=== PATIENT | male | born 1935 | race Caucasian/White ===

== ENCOUNTER 2019-08-23 20:05 | Inpatient (IN) | payer MEDICARE, OTHER ==
[~2019-08-23] VITALS: Ht 175.3 cm; Wt 115.1 kg
[~2019-08-23 20:05] MED LIST: CLIN300C8 PO
[2019-08-23] MEDS ORDERED: IV NORMAL SALINE 500ML BAG 500 ML IV ONE (20:30)
[2019-08-23] MEDS ORDERED: levOFLOXacin PER PHARMACY. MC PRN (20:30)
[2019-08-23] MEDS ORDERED: VANCOMYCIN PER PHARMACY MC PRN (20:30)
--- NOTE | 2019-08-23 20:37 | PHYS DOC ---
Past Medical History Past Medical History: CAD, CHF, Diabetes-Type II Additional Past Medical Histor: venous insufficiency Past Surgical History: Other Additional Past Surgical Histo: VEIN STRIPPING Smoking Status: Former Smoker Alcohol Use: None General Adult EDM: Chief Complaint: WEAKNESS/GENERALIZED HPI: HPI: Patient is a 84 year old biba generalized weakness couldn't stand for the last two weeks slowly progressive. using walker entirely now. not able to support his own weight no fever. no chest pain no cough or shortness of breath. getting physical therapy. tested negative for covid recently, meds: see full list, insulin, metoprolol xarelto. [facility] PMH: diabetes overweight chf chronic lymphedema for a year or two. has unaboot has been noncompliant. recent covid test yesterday, done yesterday results not back yet. Review of Systems: Review of Systems: Constitutional: Musculoskeletal: Integument: Denies rash. [] Neurologic: Denies headache, focal weakness or sensory changes. [] Endocrine: Denies polyuria or polydipsia. [] Lymphatic: Denies swollen glands. [] Psychiatric: Denies depression or anxiety. [] Heart Score: Risk Factors: Risk Factors: DM, Current or recent (<one month) smoker, HTN, HLP, family history of CAD, obesity. Risk Scores: Score 0 - 3: 2.5% MACE over next 6 weeks - Discharge Home Score 4 - 6: 20.3% MACE over next 6 weeks - Admit for Clinical Observation Score 7 - 10: 72.7% MACE over next 6 weeks - Early Invasive Strategies Current Medications: Current Medications Medications (Trade) Dose Ordered Sig/[facility] Start Time Stop Time Status Last Admin Dose Admin Levofloxacin/ Dextrose (Levaquin Per Pharmacy) 1 each PRN DAILY PRN 08/23/19 20:30 UNV Sodium Chloride 500 ml @ 500 mls/hr 1X ONCE 08/23/19 20:30 08/23/19 21:29 UNV Vancomycin HCl (Vanco Per Pharmacy) 1 each PRN DAILY PRN 08/23/19 20:30 UNV Allergies: Allergies: Allergies Coded Allergies Type Severity Reaction Last Updated Verified amoxicillin Allergy Unknown 03/11/19 Yes clavulanic acid Allergy Unknown 03/11/19 Yes erythromycin base Allergy Unknown 03/11/19 Yes fosinopril Allergy Unknown 03/11/19 Yes metformin Allergy Unknown 03/11/19 Yes niacin Allergy Unknown 03/11/19 Yes pioglitazone Allergy Unknown 03/11/19 Yes simvastatin Allergy Unknown 03/11/19 Yes Physical Exam: PE: Constitutional: Well developed, well nourished mild distress. Obese HENT: Normocephalic, atraumatic, bilateral external ears normal, oropharynx moist, no oral exudates, nose normal. [] Eyes: PERRLA, EOMI, conjunctiva normal, no discharge. Neck: Normal range of motion, no tenderness, supple, no stridor. Cardiovascular:Heart rate regular rhythm, no murmur. Lungs & Thorax: Bilateral breath sounds clear to auscultation. Abdomen: Bowel sounds normal, soft obese, but no tenderness, no masses, no pulsatile masses. [] Skin: Warm, dry, no erythema, no rash. [] Back: No tenderness, no CVA tenderness. [] Extremities: significant edema 4 plus severe lymphedema , malodorous erythema multiple scabs some of which necrotic appearing. Neurologic: Alert and oriented X 3, normal motor function, normal sensory function, no focal deficits noted. [] except not antigravity in b/l lower extremities. Psychologic: Affect normal, judgement normal, mood normal. [] Current Patient Data: Vital Signs: BP 118/56 a afebrile not tachycardic not hypoxic EKG: EKG: [] EKG shows normal sinus rhythm nonspecific changes no STEMI no ST depressions just some flattening Radiology/Procedures: Radiology/Procedures: [] Comparisons: None FINDINGS: No focal parenchymal lesion or hemorrhage is identified. There is no midline shift or sulcal effacement. Patchy hypodensity in the periventricular white matter. No acute vascular territory infarction is identified. Haley-white distinction is preserved. The ventricular system is within normal limits without compression hydrocephalus. The basal cisterns are well maintained. The visualized portions of the paranasal sinuses and mastoid air cells are well-pneumatized. No acute fractures. IMPRESSION: No acute intracranial abnormality. Exposure: One or more of the following in the visualized dose reduction techniques were utilized for this examination: 1. Automated exposure control 2. Adjustment of the MA and/or KV according to patient size Use of iterative of reconstructive technique Electronically signed by: Radha Marino MD (08/23/2019 8:59 PM) [id number] Impression: Comparisons: 03/16/2019 FINDINGS: Heart is mildly enlarged. Pulmonary vessels are within normal limits. The lung and pleural spaces are clear. IMPRESSION: No acute pulmonary process. Electronically signed by: Radha Marino MD (08/23/2019 9:01 PM) [id number] DICTATED and SIGNED BY: RADHA MARINO MD DATE: 08/23/192100 Course & Med Decision Making: Course & Med Decision Making Pertinent Labs and Imaging studies reviewed. (See chart for details) []84 yo m hx of diabetes chf, unable to stand or support weight chronic lymphedema bp normal has cellulitis b/l noted on exam, could be acute on chronic. broad ddx dehydration, less likely ich. infection, occult ischemia. 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 no heroic life saving measures. Thinks he is on XARELTO due to prior hx of blood clots. Noted troponin elevated this is broad differential could be related to strain in the setting of infection could be related to the renal insufficiency could be primary cardiac however there is no chest pain so this seems less likely. Could be related to blood clot but patient is hemodynamically stable so just given a dose of Xarelto for now and lower extremity ultrasounds were ordered skip the CT angios for this time due to the elevated creatinine. DW DR HERRON RECOMMENDS VANCO AND CEFEPIME. DO CARDS, NEPHRO WOUND CONSULT GET SERIAL TROPS GET EXTREMITY ULTRASOUND. DW DAUGHTER AMOXICILLIN ALLERGY IS DIARRHEA AND VOMITING. CEFEPIME ADDED. Ryan Disclaimer: Ryan Disclaimer: This electronic medical record was generated, in whole or in part, using a voice recognition dictation system. Departure Departure Impression: Primary Impression: Cellulitis Additional Impression: Troponin level elevated Disposition: ADMITTED INPATIENT Admitting Physician: HIMS Condition: STABLE Referrals: UNKNOWN PCP NAME (PCP) Justicifation of Admission Dx: Justifications for Admission: Justification of Admission Dx: Yes MAUREEN LINDO MD Aug 23, 2019 20:37
[2019-08-23 20:47] LABS: BASO % 1 % (0-3); EOS % 0 % (0-3); HEMOGLOBIN 8.1 g/dL (13.0-17.5); LYMPH # 0.7 x10^3/uL (1.0-4.8); LYMPH % 11 % (24-48); MEAN CORPUSCULAR HEMOGLOBIN 29 pg (25-35); MEAN CORPUSCULAR HGB CONC 34 g/dL (31-37); MEAN CORPUSCULAR VOLUME 88 fL (79-100); MONO # 0.8 x10^3/uL (0.0-1.1); MONO % 12 % (0-9); NEUT # 5.3 x10^3/uL (1.8-7.7); NEUT % 77 % (31-73); PLATELET COUNT 248 x10^3/uL (140-400); RED BLOOD COUNT 2.75 x10^6/uL (4.30-5.70); RED CELL DISTRIBUTION WIDTH 15.8 % (11.5-14.5); WHITE BLOOD COUNT 6.9 x10^3/uL (4.0-11.0)
[2019-08-23 20:57] LABS: PROTHROMBIN TIME PATIENT 20.7 SEC (11.7-14.0)
--- NOTE | 2019-08-23 21:02 | RAD ---
Exam: CT head INDICATION: Altered mental status TECHNIQUE: Sequential axial images through the head were obtained without the administration of IV contrast. Comparisons: None FINDINGS: No focal parenchymal lesion or hemorrhage is identified. There is no midline shift or sulcal effacement. Patchy hypodensity in the periventricular white matter. No acute vascular territory infarction is identified. Haley-white distinction is preserved. The ventricular system is within normal limits without compression hydrocephalus. The basal cisterns are well maintained. The visualized portions of the paranasal sinuses and mastoid air cells are well-pneumatized. No acute fractures. IMPRESSION: No acute intracranial abnormality. Exposure: One or more of the following in the visualized dose reduction techniques were utilized for this examination: 1. Automated exposure control 2. Adjustment of the MA and/or KV according to patient size Use of iterative of reconstructive technique Electronically signed by: Magi Alcocer MD (08/23/2019 8:59 PM) [id number]
--- NOTE | 2019-08-23 21:04 | RAD ---
Exam: Chest one view INDICATION: Fever TECHNIQUE: Frontal view of the chest Comparisons: 03/16/2019 FINDINGS: Heart is mildly enlarged. Pulmonary vessels are within normal limits. The lung and pleural spaces are clear. IMPRESSION: No acute pulmonary process. Electronically signed by: Magi Alcocer MD (08/23/2019 9:01 PM) [id number]
[2019-08-23 21:08] LABS: CALCIUM 8.6 mg/dL (8.5-10.1); CREATININE 1.8 mg/dL (0.7-1.3); GFR 36.1; POTASSIUM 4.5 mmol/L (3.5-5.1)
[2019-08-23 21:22] LABS: ALBUMIN 2.4 g/dL (3.4-5.0); ALBUMIN/GLOBULIN RATIO 0.5 (1.0-1.7); TOTAL BILIRUBIN 0.4 mg/dL (0.2-1.0); TOTAL PROTEIN 7.3 g/dL (6.4-8.2)
[2019-08-23] MEDS ORDERED: VANCOMYCIN 2 GM in IV NORMAL SALINE 500ML BAG 500 ML IV ONE (22:00)
[2019-08-23] MEDS ORDERED: RIVAROXABAN 15 MG TABLET. PO ONE (22:00)
[2019-08-23] MEDS ORDERED: CEFEPIME HCL IV Push 1 GM VIAL. IVP ONE (22:30)
[2019-08-23 23:02] LABS: BILIRUBIN,URINE NEGATIVE (NEG); CLARITY,URINE CLEAR; COLOR,URINE YELLOW; NITRITE,URINE NEGATIVE (NEG); PH,URINE 5.5 (<5.0-8.0); PROTEIN,URINE NEGATIVE (NEG-TRACE); UROBILINOGEN,URINE 0.2 mg/dL (0.2 mg/dL)
[2019-08-23 23:16] LABS: BACTERIA,URINE FEW /HPF (0-FEW); GRANULAR CASTS,URINE FEW /HPF; HYALINE CASTS, URINE FEW /HPF; RBC,URINE OCC /HPF (0-2); SQUAMOUS EPITHELIAL CELL,UR FEW /LPF
--- NOTE | 2019-08-24 02:07 | NUR ---
Pharmacy Vancomycin Dosing Note S:Consulted to monitor and dose vancomycin started 08/23/19. O:DEYA PAGE is a 84 year old M with Cellulitis . Height: 6 feet, 2 inches Weight: 100.0 kg [place] Body Weight: 82.20 Adjusted Body Weight: 89.32 Dosing Weight: Actual Other Antibiotics: LEVOFLOXACIN 250 MG DAILY LABS: Last BUN: 48 Last Creatinine: 1.8 Creatinine Clearance: 38.6 mL/min Last WBC: 6.9 Last Procalcitonin: Tmax (past 24 hours): Microbiology: I/O: Drug Levels: Last level: on at Last dose given 08/23/19 at 2200 Vancomycin Dosing: Loading Dose: 2000 mg x1 Dosing Weight: Actual Target Trough: 10-20 A: Based on: WT AND CRCL P: 1. Begin Vancomycin 1500 mg IV q24h 2. Follow up Trough level on 08/25/19 at 2130 3. Pharmacy will continue to monitor, follow and adjust therapy as needed. TENNILLE BEVERLY RPH, 08/24/19206 Signed: 08/24/19 at 020 by TENNILLE BEVERLY RPH PHA
[2019-08-24 03:00] VITALS: BP 106/65
[2019-08-24] MEDS ORDERED: BISA-42 PO (04:37)
[2019-08-24] MEDS ORDERED: FLUC200T4 PO (04:54)
[2019-08-24] MEDS ORDERED: INSU100V8 SQ ×2 (04:54)
[2019-08-24] MEDS ORDERED: CETI10TA16 PO (04:54)
[2019-08-24] MEDS ORDERED: OMEG1CAP27 PO (04:54)
[2019-08-24] MEDS ORDERED: FURO20TA3 PO (04:54)
[2019-08-24] MEDS ORDERED: INSU100V41 SQ (04:54)
[2019-08-24] MEDS ORDERED: GABA600T7 PO (04:54)
[2019-08-24] MEDS ORDERED: MAGN400O7 PO (05:04)
[2019-08-24] MEDS ORDERED: METO50TA6 PO (05:04)
[2019-08-24] MEDS ORDERED: SPIR25TA5 PO (05:04)
[2019-08-24] MEDS ORDERED: LOSA100T14 PO (05:04)
[2019-08-24] MEDS ORDERED: MICO113C TP (05:04)
[2019-08-24] MEDS ORDERED: MENT1ADH29 TP (05:04)
[2019-08-24] MEDS ORDERED: SILV20CR14 TP (05:04)
[2019-08-24] MEDS ORDERED: RIVA20TA2 PO (05:04)
[2019-08-24] MEDS ORDERED: NYST15CR TP (05:04)
[2019-08-24] MEDS ORDERED: POLY17PO29 PO (05:04)
[2019-08-24 07:00] VITALS: BP 150/78
[2019-08-24 08:53] LABS: CALCIUM 8.3 mg/dL (8.5-10.1); CREATININE 1.4 mg/dL (0.7-1.3); GFR 48.3; POTASSIUM 4.2 mmol/L (3.5-5.1)
[2019-08-24] MEDS: HYDROcodone/APAP 5/325MG 1 TAB TABLET PO PRN ×2 (10:11→20:48)
--- NOTE | 2019-08-24 10:12 | RAD ---
Examination: Bilateral Lower Extremity Venous Doppler Ultrasound History: Bilateral leg edema Comparison: None Procedure: Haley scale, color flow 2D and spectal waveform analysis images are obtained with and without compression in the area of the common femoral vein, superficial femoral vein - femoral vein junction, main femoral vein (superficial femoral vein) and popliteal vein. Veins of the proximal calf are also imaged. Findings: There is normal duplex flow, color flow and compressibility of all visualized vein segments. No evidence of deep venous thrombus is present. Impression: No evidence of DVT in the bilateral lower extremity venous system. Electronically signed by: Sidney Robins MD (08/24/2019 10:09 AM) [id number]
[2019-08-24 10:43] VITALS: BP 138/51
--- NOTE | 2019-08-24 11:30 | PDOC ---
Infectious Disease Note Vital Sign Vital Signs Vital Signs Date Time Temp Pulse Resp B/P (MAP) Pulse Ox O2 Delivery O2 Flow Rate FiO2 08/24/19 10:43 98.6 81 18 138/51 (80) 97 Room Air 98.6 Labs Lab Laboratory Tests Test 08/23/19 20:30 08/23/19 22:30 08/24/19 05:00 08/24/19 05:30 White Blood Count 6.9 x10^3/uL (4.0-11.0) Red Blood Count 2.75 x10^6/uL (4.30-5.70) Hemoglobin 8.1 g/dL (13.0-17.5) Hematocrit 24.0 % (39.0-53.0) Mean Corpuscular Volume 88 fL (79-100) Mean Corpuscular Hemoglobin 29 pg (25-35) Mean Corpuscular Hemoglobin Concent 34 g/dL (31-37) Red Cell Distribution Width 15.8 % (11.5-14.5) Platelet Count 248 x10^3/uL (140-400) Neutrophils (%) (Auto) 77 % (31-73) Lymphocytes (%) (Auto) 11 % (24-48) Monocytes (%) (Auto) 12 % (0-9) Eosinophils (%) (Auto) 0 % (0-3) Basophils (%) (Auto) 1 % (0-3) Neutrophils # (Auto) 5.3 x10^3/uL (1.8-7.7) Lymphocytes # (Auto) 0.7 x10^3/uL (1.0-4.8) Monocytes # (Auto) 0.8 x10^3/uL (0.0-1.1) Eosinophils # (Auto) 0.0 x10^3/uL (0.0-0.7) Basophils # (Auto) 0.0 x10^3/uL (0.0-0.2) Prothrombin Time 20.7 SEC (11.7-14.0) Prothromb Time International Ratio 1.8 (0.8-1.1) Sodium Level 140 mmol/L (136-145) 141 mmol/L (136-145) Potassium Level 4.5 mmol/L (3.5-5.1) 4.2 mmol/L (3.5-5.1) Chloride Level 108 mmol/L (98-107) 108 mmol/L (98-107) Carbon Dioxide Level 24 mmol/L (21-32) 20 mmol/L (21-32) Anion Gap 8 (6-14) 13 (6-14) Blood Urea Nitrogen 48 mg/dL (8-26) 40 mg/dL (8-26) Creatinine 1.8 mg/dL (0.7-1.3) 1.4 mg/dL (0.7-1.3) Estimated GFR (Cockcroft-Gault) 36.1 48.3 BUN/Creatinine Ratio 27 (6-20) Glucose Level 275 mg/dL (70-99) 207 mg/dL (70-99) Lactic Acid Level 1.6 mmol/L (0.4-2.0) Calcium Level 8.6 mg/dL (8.5-10.1) 8.3 mg/dL (8.5-10.1) Total Bilirubin 0.4 mg/dL (0.2-1.0) Aspartate Amino Transf (AST/SGOT) 25 U/L (15-37) Alanine Aminotransferase (ALT/SGPT) 17 U/L (16-63) Alkaline Phosphatase 54 U/L (46-116) Troponin I Quantitative 0.260 ng/mL (0.000-0.055) 0.148 ng/mL (0.000-0.055) 0.145 ng/mL (0.000-0.055) NK-Btn-H-Type Natriuretic Peptide 4809 pg/mL (0-449) Total Protein 7.3 g/dL (6.4-8.2) Albumin 2.4 g/dL (3.4-5.0) Albumin/Globulin Ratio 0.5 (1.0-1.7) Procalcitonin 0.18 ng/mL (0.00-0.10) Urine Collection Type Unknown Urine Color Yellow Urine Clarity Clear Urine pH 5.5 (<5.0-8.0) Urine Specific [place] 1.020 (1.000-1.030) Urine Protein Negative mg/dL (NEG-TRACE) Urine Glucose (UA) Negative mg/dL (NEG) Urine Ketones (Stick) Negative mg/dL (NEG) Urine Blood Negative (NEG) Urine Nitrite Negative (NEG) Urine Bilirubin Negative (NEG) Urine Urobilinogen Dipstick 0.2 mg/dL (0.2 mg/dL) Urine Leukocyte Esterase Negative (NEG) Urine RBC Occ /HPF (0-2) Urine WBC 1-4 /HPF (0-4) Urine Squamous Epithelial Cells Few /LPF Urine Bacteria Few /HPF (0-FEW) Urine Hyaline Casts Few /HPF Urine Granular Casts Few /HPF Urine Mucus Marked /LPF Test 08/24/19 07:49 08/24/19 11:05 Glucose (Fingerstick) 212 mg/dL (70-99) 293 mg/dL (70-99) Objective Assessment Mild cellulitis lower extremities, bilaterally 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 The chart was reviewed. The case was discussed. Agree with the plan of care. CHIRAG TOMLIN APRN Aug 24, 2019 11:30 RAIMUNDO WISDOM MD Aug 24, 2019 11:32
--- NOTE | 2019-08-24 11:51 | CONS ---
DATE OF CONSULTATION: 08/24/2019 INFECTIOUS DISEASE REQUESTING PHYSICIAN: Dr. Ortega. REASON FOR CONSULTATION: Multiple wounds and COVID pending. HISTORY OF PRESENT ILLNESS: This patient is an 84-year-old male who was brought to the ER from a long term with complaints of generalized weakness. He was found to have several ulcerations to lower extremities with mild redness. Venous Doppler ultrasound was negative for DVT. He has been admitted and started on vancomycin and Levaquin. The patient has a history of chronic lymphedema of lower extremities bilaterally. [facility] He denies recent antibiotic use. He denies fevers, chills, sweats, or body aches. He has a COVID test pending. He denies shortness of breath, cough, or chest discomfort. Denies nausea, vomiting, or diarrhea. PAST MEDICAL HISTORY: Atrial fibrillation, congestive heart failure, coronary artery disease, hypertension, diabetes type 2, chronic lymphedema, venous insufficiency. PAST SURGICAL HISTORY: Vein stripping. FAMILY HISTORY: Noncontributory. SOCIAL HISTORY: prison resident. Former smoker. ALLERGIES: MULTIPLE INCLUDING AUGMENTIN AND ERYTHROMYCIN. MEDICATIONS: Reviewed on the MAR and includes vancomycin and levofloxacin. REVIEW OF SYSTEMS: Per HPI, otherwise all other review of systems are negative. PHYSICAL EXAMINATION: VITAL SIGNS: Temperature 98.6, blood pressure 138/51, heart rate 81, respiratory rate 18, pulse oximetry 97% on room air. BMI 41. GENERAL: The patient is propped up in bed, alert, in no apparent distress. HEENT: Normal conjunctivae. Oropharynx pink and moist, no thrush. NECK: Supple. LUNGS: Clear to auscultation. No accessory muscle use. HEART: S1, S2. ABDOMEN: Obese, soft, nontender with bowel sounds present. EXTREMITIES: Chronic venous dermatitis with mild erythema and several ulcerations and weeping. No cyanosis. SKIN: Warm to touch. No signs of rash. NEUROLOGIC: Alert and answering questions appropriately, though a poor historian. LABORATORY DATA: On admission, WBC 6.9, hemoglobin 8.1, platelets 248,000. Sodium 141, potassium 4.2, creatinine 1.4 from 1.8, BUN 40, glucose 207. Lactic acid 1.6, total bilirubin 0.4, AST 25, ALT 17. Troponin 0.260. BNP 4809. Procalcitonin 0.18. Albumin 2.4. Urinalysis unremarkable for infection. Blood cultures and aerobic culture with Gram stain pending. COVID pending. Venous Doppler ultrasound negative for DVT. Chest x-ray shows no acute pulmonary process. Head CT with no acute intracranial abnormality. IMPRESSION: 1. Mild cellulitis of lower extremities bilaterally. 2. 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 3. AUGMENTIN AND ERYTHROMYCIN ALLERGY. 4. Acute kidney injury. 5. Atrial fibrillation. 6. Generalized weakness. 7. Obesity. PLAN: 1. Discontinue the vancomycin and levofloxacin. 2. Start Rocephin and monitor. 3. Local wound care. 4. Maintain aspiration precautions. 5. Droplet isolation until COVID resulted. 6. Discussed with nursing. Thank you, Dr. Ortega, for asking us to participate in this patient's care. Should you have further questions or concerns, please call. The patient was seen and examined and plan of care implemented by Dr. Olayinka Wisdom. OLAYINKA WISDOM MD DR: GILDARDO/iwona JOB#: [id number] / [id number]
[2019-08-24] MEDS ORDERED: MAGNESIUM HYDROXIDE 2,400 MG/30 ML ORAL.SUSP. PO PRN ×2 (12:15→12:18)
[2019-08-24] MEDS ORDERED: POLYETHYLENE GLYCOL 3350 17 GM PACKET. PO PRN (12:15)
[2019-08-24] MEDS ORDERED: BISACODYL 5 MG TABLET.DR. PO PRN (12:15)
[2019-08-24] MEDS ORDERED: DEXTROSE 50% 25 GM / 50ML DISP.SYRIN. IV PRN (12:30)
--- NOTE | 2019-08-24 12:36 | PDOC1 ---
History and Physical Date of Admission: Date of Admission DATE: 08/24/19 TIME: 12:14 Chief Complaint: Chief Complain: Weakness and bilateral cellulitis History of Present Illness: HPI: 84-year-old male, with past medical history of CAD, CHF, diabetes type 2, A. fib, who presents to the ED with generalized weakness for the last 2 weeks and is progressively gotten worse. Patient states that his weakness is mainly is is in his lower extremities and he does receive wound care for both of his legs due to venous insufficiency. Patient does suffer multiple wounds and possibly fungal infection that is also being treated by wound care. In the last couple days patient was not able to support his own weight and decided that he needed to be brought in. Patient resides at [facility] and feels that the care at [facility] is an adequate and would like to switch to a different location. Ultimately he would like to go home with home health and also receive physical therapy. Patient was tested negative for COVID recently patient does normally go to [place] for [place]. Denies fevers, shortness of breath, chest pain, abdominal pain, diarrhea, bloody stools, hematuria. Past Medical/Surgical History: PMH/PSH: Past Medical History: CAD, CHF, Diabetes-Type II, Afib Additional Past Medical Histor: venous insufficiency Allergies: Allergies: Coded Allergies: fosinopril (Verified Allergy, Severe, 08/23/19) amoxicillin (Verified Allergy, Intermediate, DIARRHEA AND VOMITING, 08/24/19) clavulanic acid (Verified Allergy, Intermediate, 08/23/19) erythromycin base (Verified Allergy, Intermediate, 08/23/19) metformin (Verified Allergy, Intermediate, 08/23/19) niacin (Verified Allergy, Intermediate, 08/23/19) pioglitazone (Verified Allergy, Intermediate, 08/23/19) simvastatin (Verified Allergy, Intermediate, 08/23/19) Family History: Family History: None reported Social History: Social History: Smoking Status: Former Smoker Alcohol Use: None No drug abuse Current Medications: Current Medications Current Medications Vancomycin HCl (Vanco Per Pharmacy) 1 each PRN DAILY PRN MC SEE COMMENTS Last administered on 08/24/19at 02:07; Start 08/23/19 at 20:30; Stop 08/24/19 at 11:21; Status DC Levofloxacin/ Dextrose (Levaquin Per Pharmacy) 1 each PRN DAILY PRN MC SEE COMMENTS; Start 08/23/19 at 20:30; Status Cancel Sodium Chloride 500 ml @ 500 mls/hr 1X ONCE IV Last administered on 08/23/19at 21:28; Start 08/23/19 at 20:30; Stop 08/23/19 at 21:29; Status DC Levofloxacin/ Dextrose 150 ml @ 100 mls/hr 1X ONCE IV Last administered on 08/23/19at 21:28; Start 08/23/19 at 21:00; Stop 08/23/19 at 22:29; Status DC Vancomycin HCl 2 gm/Sodium Chloride 500 ml @ 250 mls/hr 1X ONCE IV Last administered on 08/23/19at 22:00; Start 08/23/19 at 22:00; Stop 08/23/19 at 23:59; Status DC Rivaroxaban (Xarelto) 15 mg 1X ONCE PO Last administered on 08/23/19at 22:48; Start 08/23/19 at 22:00; Stop 08/23/19 at 22:01; Status DC Cefepime HCl (Maxipime) 1 gm 1X ONCE IVP Last administered on 08/23/19at 22:48; Start 08/23/19 at 22:30; Stop 08/23/19 at 22:31; Status DC Levofloxacin/ Dextrose 50 ml @ 50 mls/hr Q24H IV ; Start 08/24/19 at 21:00; Stop 08/24/19 at 11:32; Status DC Vancomycin HCl 1.5 gm/Sodium Chloride 500 ml @ 250 mls/hr Q24H IV ; Start 08/24/19 at 22:00; Stop 08/24/19 at 11:20; Status DC Vancomycin HCl (Vancomycin Trough Level) 1 each 1X ONCE MC ; Start 08/25/19 at 21:30; Stop 08/25/19 at 21:31; Status Cancel Acetaminophen/ Hydrocodone Bitart (Lortab 5/325) 1 tab PRN Q4HRS PRN PO MODERATE PAIN Last administered on 08/24/19at 10:11; Start 08/24/19 at 10:00 Ceftriaxone Sodium (Rocephin) 1 gm Q24H IVP ; Start 08/24/19 at 12:00 Bisacodyl (Dulcolax Tab) 5 mg TID PRN PO CONSTIPATION; Start 08/24/19 at 12:15; Status UNV Cetirizine HCl (ZyrTEC) 10 mg DAILY PO ; Start 08/25/19 at 09:00; Status UNV Furosemide (Lasix) 20 mg DAILY PO ; Start 08/25/19 at 09:00; Status UNV Magnesium Hydroxide (Milk Of Magnesia) 400 mg DAILY PRN PO CONSTIPATION; Start 08/24/19 at 12:15; Status UNV Metoprolol Tartrate (Lopressor) 50 mg BID PO ; Start 08/24/19 at 21:00; Status UNV Polyethylene Glycol (miraLAX PACKET) 17 gm DAILY PRN PO CONSTIPATION; Start 08/24/19 at 12:15; Status UNV Non-Formulary Medication (Gabapentin ) 600 mg BID PO ; Start 08/24/19 at 21:00; Status UNV Non-Formulary Medication (Rivaroxaban (Xarelto)) 1 tab DAILY PO ; Start 08/25/19 at 09:00; Status UNV Active Scripts Active Clindamycin Hcl 300 Mg Capsule 1 Cap PO TID Reported Spironolactone 25 Mg Tablet 1 Tab PO DAILY Silvadene (Silver Sulfadiazine) 20 Gm Cream..g. 1 Agata TP DAILY 7 Days apply to affected area(s) Xarelto (Rivaroxaban) 20 Mg Tablet 1 Tab PO DAILY 30 Days with food Nystatin 15 Gm Cream..g. 1 Agata TP BID Miralax (Polyethylene Glycol 3350) 17 Gm Powd.pack 1 Packet PO DAILY PRN 2 Days dissolve in water Milk Of Magnesia (Magnesium Hydroxide) 400 Mg/5 Ml Oral.susp 400 Mg PO DAILY PRN Anti-Fungal Cream (Miconazole Nitrate) 113 Gm Cream..g. 1 Agata TP BID 14 Days Metoprolol Tartrate 50 Mg Tablet 1 Tab PO BID [place] Ultra Strength (Menthol) 1 Each Adh..patch 1 Each TP Q8HRS Losartan Potassium 100 Mg Tablet 100 Mg PO DAILY Lantus (Insulin Glargine,Hum.rec.anlog) 100 Unit/1 Ml Vial 35 Unit SQ DAILY08 Lantus (Insulin Glargine,Hum.rec.anlog) 100 Unit/1 Ml Vial 37 Unit SQ QHS Insulin Aspart 100 Unit/1 Ml Vial 25 Unit SQ TIDAC Gabapentin 600 Mg Tablet 600 Mg PO BID Furosemide 20 Mg Tablet 1 Tab PO DAILY Fluconazole 200 Mg Tablet 1 Tab PO QTU Fish Oil 1,000 Mg Softgel ([place]-3 Fatty Acids/Fish Oil) 1 Each Capsule 1 Cap PO BID 30 Days WITH MEALS Cetirizine Hcl 10 Mg Tablet 1 Tab PO DAILY Dulcolax (Bisacodyl) 5 Mg Tablet.dr 1 Tab PO TID PRN 1 Days ROS: Review of Systems Review of System REVIEW OF SYSTEMS: GENERAL: Denies weakness SKIN: No bruising, hair changes or rashes. EYES: No blurred, double or loss of vision. NOSE AND THROAT: No history of nosebleeds, hoarseness or sore throat. HEART: No history of palpitations, chest pain or shortness of breath on exertion. LUNGS: Denies cough, hemoptysis, wheezing or shortness of breath. GASTROINTESTINAL: Denies changes in appetite, nausea, vomiting, diarrhea or constipation. GENITOURINARY: No history of frequency, urgency, hesitancy or nocturia. NEUROLOGIC: Denies history of numbness, tingling, or tremor. PSYCHIATRIC: No history of panic, anxiety or depression. ENDOCRINE: No history of heat or cold intolerance, polyuria or polydipsia. EXTREMITIES: Denies joint pain, pain on walking or stiffness. Physical Exam: Vital Signs: Vital Signs Date Time Temp Pulse Resp B/P (MAP) Pulse Ox O2 Delivery O2 Flow Rate FiO2 08/24/19 10:43 98.6 81 18 138/51 (80) 97 Room Air 98.6 Physcial Exam: GEN: No apparent distress. Alert and oriented HEENT: Normal cephalic, atraumatic, external auditory canals are patent EYES: Extraocular muscles are intact, pupil are equally round and reactive to light and accommodation MUSCULOSKELETAL: Well developed , well nourished, good range of motion ENDOCRINE: No thyromegaly was palpated LYMPHATICS: No cervical chain or axillary nodes were noted HEMATOPOIETIC: No bruising NECK: Supple, no JVD, no thyromegaly was noted LUNGS: Clear to auscultation in all lung uribe without rhonchi or wheezing HEART: RRR, S!, S2 present. Peripheral pulses intact, no obvious murmurs noted ABDOMEN: Soft, nontender. Positive bowel sounds, no organomegaly, normal bowel sounds EXTREMITIES: Without clubbing, cyanosis, or edema. Pedal pulses intact. Negative Homans sign NEUROLOGIC: Normal speech and tone. A&O x 3, moves all extremities, no obvious focal deficits PSYCHIATRIC: Normal affect, normal mood. Stable SKIN: No ulcerations or rashes, good skin turgor, no jaundice VASCULAR: Good capillary refill, neurovascular bundle appears to be intact Labs: Labs: Laboratory Tests Test 08/23/19 20:30 08/23/19 22:30 08/24/19 05:00 08/24/19 05:30 White Blood Count 6.9 x10^3/uL (4.0-11.0) Red Blood Count 2.75 x10^6/uL (4.30-5.70) Hemoglobin 8.1 g/dL (13.0-17.5) Hematocrit 24.0 % (39.0-53.0) Mean Corpuscular Volume 88 fL (79-100) Mean Corpuscular Hemoglobin 29 pg (25-35) Mean Corpuscular Hemoglobin Concent 34 g/dL (31-37) Red Cell Distribution Width 15.8 % (11.5-14.5) Platelet Count 248 x10^3/uL (140-400) Neutrophils (%) (Auto) 77 % (31-73) Lymphocytes (%) (Auto) 11 % (24-48) Monocytes (%) (Auto) 12 % (0-9) Eosinophils (%) (Auto) 0 % (0-3) Basophils (%) (Auto) 1 % (0-3) Neutrophils # (Auto) 5.3 x10^3/uL (1.8-7.7) Lymphocytes # (Auto) 0.7 x10^3/uL (1.0-4.8) Monocytes # (Auto) 0.8 x10^3/uL (0.0-1.1) Eosinophils # (Auto) 0.0 x10^3/uL (0.0-0.7) Basophils # (Auto) 0.0 x10^3/uL (0.0-0.2) Prothrombin Time 20.7 SEC (11.7-14.0) Prothromb Time International Ratio 1.8 (0.8-1.1) Sodium Level 140 mmol/L (136-145) 141 mmol/L (136-145) Potassium Level 4.5 mmol/L (3.5-5.1) 4.2 mmol/L (3.5-5.1) Chloride Level 108 mmol/L (98-107) 108 mmol/L (98-107) Carbon Dioxide Level 24 mmol/L (21-32) 20 mmol/L (21-32) Anion Gap 8 (6-14) 13 (6-14) Blood Urea Nitrogen 48 mg/dL (8-26) 40 mg/dL (8-26) Creatinine 1.8 mg/dL (0.7-1.3) 1.4 mg/dL (0.7-1.3) Estimated GFR (Cockcroft-Gault) 36.1 48.3 BUN/Creatinine Ratio 27 (6-20) Glucose Level 275 mg/dL (70-99) 207 mg/dL (70-99) Lactic Acid Level 1.6 mmol/L (0.4-2.0) Calcium Level 8.6 mg/dL (8.5-10.1) 8.3 mg/dL (8.5-10.1) Total Bilirubin 0.4 mg/dL (0.2-1.0) Aspartate Amino Transf (AST/SGOT) 25 U/L (15-37) Alanine Aminotransferase (ALT/SGPT) 17 U/L (16-63) Alkaline Phosphatase 54 U/L (46-116) Troponin I Quantitative 0.260 ng/mL (0.000-0.055) 0.148 ng/mL (0.000-0.055) 0.145 ng/mL (0.000-0.055) US-Dqp-U-Type Natriuretic Peptide 4809 pg/mL (0-449) Total Protein 7.3 g/dL (6.4-8.2) Albumin 2.4 g/dL (3.4-5.0) Albumin/Globulin Ratio 0.5 (1.0-1.7) Procalcitonin 0.18 ng/mL (0.00-0.10) Urine Collection Type Unknown Urine Color Yellow Urine Clarity Clear Urine pH 5.5 (<5.0-8.0) Urine Specific [place] 1.020 (1.000-1.030) Urine Protein Negative mg/dL (NEG-TRACE) Urine Glucose (UA) Negative mg/dL (NEG) Urine Ketones (Stick) Negative mg/dL (NEG) Urine Blood Negative (NEG) Urine Nitrite Negative (NEG) Urine Bilirubin Negative (NEG) Urine Urobilinogen Dipstick 0.2 mg/dL (0.2 mg/dL) Urine Leukocyte Esterase Negative (NEG) Urine RBC Occ /HPF (0-2) Urine WBC 1-4 /HPF (0-4) Urine Squamous Epithelial Cells Few /LPF Urine Bacteria Few /HPF (0-FEW) Urine Hyaline Casts Few /HPF Urine Granular Casts Few /HPF Urine Mucus Marked /LPF Test 08/24/19 07:49 08/24/19 11:05 Glucose (Fingerstick) 212 mg/dL (70-99) 293 mg/dL (70-99) Laboratory Tests Test 08/23/19 20:30 08/23/19 22:30 08/24/19 05:00 08/24/19 05:30 White Blood Count 6.9 x10^3/uL (4.0-11.0) Red Blood Count 2.75 x10^6/uL (4.30-5.70) Hemoglobin 8.1 g/dL (13.0-17.5) Hematocrit 24.0 % (39.0-53.0) Mean Corpuscular Volume 88 fL (79-100) Mean Corpuscular Hemoglobin 29 pg (25-35) Mean Corpuscular Hemoglobin Concent 34 g/dL (31-37) Red Cell Distribution Width 15.8 % (11.5-14.5) Platelet Count 248 x10^3/uL (140-400) Neutrophils (%) (Auto) 77 % (31-73) Lymphocytes (%) (Auto) 11 % (24-48) Monocytes (%) (Auto) 12 % (0-9) Eosinophils (%) (Auto) 0 % (0-3) Basophils (%) (Auto) 1 % (0-3) Neutrophils # (Auto) 5.3 x10^3/uL (1.8-7.7) Lymphocytes # (Auto) 0.7 x10^3/uL (1.0-4.8) Monocytes # (Auto) 0.8 x10^3/uL (0.0-1.1) Eosinophils # (Auto) 0.0 x10^3/uL (0.0-0.7) Basophils # (Auto) 0.0 x10^3/uL (0.0-0.2) Prothrombin Time 20.7 SEC (11.7-14.0) Prothromb Time International Ratio 1.8 (0.8-1.1) Sodium Level 140 mmol/L (136-145) 141 mmol/L (136-145) Potassium Level 4.5 mmol/L (3.5-5.1) 4.2 mmol/L (3.5-5.1) Chloride Level 108 mmol/L (98-107) 108 mmol/L (98-107) Carbon Dioxide Level 24 mmol/L (21-32) 20 mmol/L (21-32) Anion Gap 8 (6-14) 13 (6-14) Blood Urea Nitrogen 48 mg/dL (8-26) 40 mg/dL (8-26) Creatinine 1.8 mg/dL (0.7-1.3) 1.4 mg/dL (0.7-1.3) Estimated GFR (Cockcroft-Gault) 36.1 48.3 BUN/Creatinine Ratio 27 (6-20) Glucose Level 275 mg/dL (70-99) 207 mg/dL (70-99) Lactic Acid Level 1.6 mmol/L (0.4-2.0) Calcium Level 8.6 mg/dL (8.5-10.1) 8.3 mg/dL (8.5-10.1) Total Bilirubin 0.4 mg/dL (0.2-1.0) Aspartate Amino Transf (AST/SGOT) 25 U/L (15-37) Alanine Aminotransferase (ALT/SGPT) 17 U/L (16-63) Alkaline Phosphatase 54 U/L (46-116) Troponin I Quantitative 0.260 ng/mL (0.000-0.055) 0.148 ng/mL (0.000-0.055) 0.145 ng/mL (0.000-0.055) AG-Xss-A-Type Natriuretic Peptide 4809 pg/mL (0-449) Total Protein 7.3 g/dL (6.4-8.2) Albumin 2.4 g/dL (3.4-5.0) Albumin/Globulin Ratio 0.5 (1.0-1.7) Procalcitonin 0.18 ng/mL (0.00-0.10) Urine Collection Type Unknown Urine Color Yellow Urine Clarity Clear Urine pH 5.5 (<5.0-8.0) Urine Specific [place] 1.020 (1.000-1.030) Urine Protein Negative mg/dL (NEG-TRACE) Urine Glucose (UA) Negative mg/dL (NEG) Urine Ketones (Stick) Negative mg/dL (NEG) Urine Blood Negative (NEG) Urine Nitrite Negative (NEG) Urine Bilirubin Negative (NEG) Urine Urobilinogen Dipstick 0.2 mg/dL (0.2 mg/dL) Urine Leukocyte Esterase Negative (NEG) Urine RBC Occ /HPF (0-2) Urine WBC 1-4 /HPF (0-4) Urine Squamous Epithelial Cells Few /LPF Urine Bacteria Few /HPF (0-FEW) Urine Hyaline Casts Few /HPF Urine Granular Casts Few /HPF Urine Mucus Marked /LPF Test 08/24/19 07:49 08/24/19 11:05 Glucose (Fingerstick) 212 mg/dL (70-99) 293 mg/dL (70-99) Assessment/Plan Assessment/Plan Mild cellulitis of lower extremities bilaterally. 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 Acute renal failure due to vasomotor nephropathy Atrial fibrillation chads vas score of greater than 4 currently on Xarelto Troponinemia Severe malnutrition Debilitation Morbid obesity Admit to medicine Consult wound care Consult cardiology for elevated troponins Consult infectious disease Pending blood and urine cultures Consult podiatry RISS Xarelto for DVT prophylaxis ADA diet DNR Discussed with RN and ERIC Dispo assisted living facility versus home with home health when ready for discharge Justicifation of Admission Dx: Justifications for Admission: Justification of Admission Dx: Yes VALERIA HERRON MD Aug 24, 2019 12:36
[2019-08-24] MEDS: cefTRIAXone IV Push 1 GM VIAL. IVP SCH (12:54)
[2019-08-24] MEDS: CETIRIZINE HCL 10 MG TABLET. PO SCH (12:54)
[2019-08-24] MEDS: FUROSEMIDE 20 MG TABLET PO SCH (12:54)
--- NOTE | 2019-08-24 12:54 | PDOC2 ---
CONSULT Date of Consult Date of Consult DATE: 08/24/19 TIME: 12:50 Reason for Consult Reason for Consult: Coronary artery disease. Mild elevation in troponin Referring Physician Referring Physician: Dr. Ortega Identification/Chief Complaint Chief Complaint Weakness Source Source: Chart review, Patient History of Present Illness Reason for Visit: The patient is an 84-year-old male with a history of coronary artery disease, congestive heart failure, hypertension and diabetes mellitus who presented to the emergency room with greater than 1 week of generalized weakness. The patient denies chest pain or shortness of breath. Initial work-up included a hemoglobin hematocrit of 8.1 and 24. Creatinine of 1.4. Troponin has been minimally elevated 0.148 and 0.145. Overnight the patient has been treated for cellulitis and is feeling mildly better today. Past Medical History Cardiovascular: CAD, CHF, HTN Pulmonary: COPD Endocrine: Diabetes Past Surgical History Past Surgical History: Other (Vein stripping) Family History Family History: Hypertension Social History No ALCOHOL: none Current Problem List Problem List Problems Medical Problems: (1) Cellulitis Status: Acute (2) Troponin level elevated Status: Acute Current Medications Current Medications Current Medications Vancomycin HCl (Vanco Per Pharmacy) 1 each PRN DAILY PRN MC SEE COMMENTS Last administered on 08/24/19at 02:07; Start 08/23/19 at 20:30; Stop 08/24/19 at 11:21; Status DC Levofloxacin/ Dextrose (Levaquin Per Pharmacy) 1 each PRN DAILY PRN MC SEE COMMENTS; Start 08/23/19 at 20:30; Status Cancel Sodium Chloride 500 ml @ 500 mls/hr 1X ONCE IV Last administered on 08/23/19at 21:28; Start 08/23/19 at 20:30; Stop 08/23/19 at 21:29; Status DC Levofloxacin/ Dextrose 150 ml @ 100 mls/hr 1X ONCE IV Last administered on 08/23/19at 21:28; Start 08/23/19 at 21:00; Stop 08/23/19 at 22:29; Status DC Vancomycin HCl 2 gm/Sodium Chloride 500 ml @ 250 mls/hr 1X ONCE IV Last a dministered on 08/23/19at 22:00; Start 08/23/19 at 22:00; Stop 08/23/19 at 23:59; Status DC Rivaroxaban (Xarelto) 15 mg 1X ONCE PO Last administered on 08/23/19at 22:48; Start 08/23/19 at 22:00; Stop 08/23/19 at 22:01; Status DC Cefepime HCl (Maxipime) 1 gm 1X ONCE IVP Last administered on 08/23/19at 22:48; Start 08/23/19 at 22:30; Stop 08/23/19 at 22:31; Status DC Levofloxacin/ Dextrose 50 ml @ 50 mls/hr Q24H IV ; Start 08/24/19 at 21:00; Stop 08/24/19 at 11:32; Status DC Vancomycin HCl 1.5 gm/Sodium Chloride 500 ml @ 250 mls/hr Q24H IV ; Start 08/24/19 at 22:00; Stop 08/24/19 at 11:20; Status DC Vancomycin HCl (Vancomycin Trough Level) 1 each 1X ONCE MC ; Start 08/25/19 at 21:30; Stop 08/25/19 at 21:31; Status Cancel Acetaminophen/ Hydrocodone Bitart (Lortab 5/325) 1 tab PRN Q4HRS PRN PO MODERATE PAIN Last administered on 08/24/19at 10:11; Start 08/24/19 at 10:00 Ceftriaxone Sodium (Rocephin) 1 gm Q24H IVP ; Start 08/24/19 at 12:00 Bisacodyl (Dulcolax Tab) 5 mg PRN TID PRN PO CONSTIPATION 1ST CHOICE; Start 08/24/19 at 12:15 Cetirizine HCl (ZyrTEC) 10 mg DAILY PO ; Start 08/24/19 at 13:00 Furosemide (Lasix) 20 mg DAILY PO ; Start 08/24/19 at 13:00 Magnesium Hydroxide (Milk Of Magnesia) 400 mg PRN DAILY PRN PO CONSTIPATION; Start 08/24/19 at 12:15; Stop 08/24/19 at 12:18; Status DC Metoprolol Tartrate (Lopressor) 50 mg BID PO ; Start 08/24/19 at 21:00 Polyethylene Glycol (miraLAX PACKET) 17 gm PRN DAILY PRN PO CONSTIPATION 2ND CHOICE; Start 08/24/19 at 12:15 Gabapentin (Neurontin) 600 mg BID PO ; Start 08/24/19 at 21:00 Rivaroxaban (Xarelto) 20 mg DAILY16 PO ; Start 08/24/19 at 16:00 Magnesium Hydroxide (Milk Of Magnesia) 2,400 mg PRN DAILY PRN PO CONSTIPATION; Start 08/24/19 at 12:18 Info (Anti-Coagulation Monitoring By Pharmacy) 1 each PRN DAILY PRN MC SEE COMMENTS; Start 08/24/19 at 12:30 Insulin Human Lispro (HumaLOG) 0-7 UNITS TIDWMEALS SQ ; Start 08/24/19 at 13:00 Dextrose (Dextrose 50%-Water Syringe) 12.5 gm PRN Q15MIN PRN IV SEE COMMENTS; Start 08/24/19 at 12:30 Insulin Glargine (Lantus Syringe) 37 unit QHS SQ ; Start 08/24/19 at 21:00 Insulin Glargine (Lantus Syringe) 35 unit DAILY08 SQ ; Start 08/25/19 at 08:00; Stop 08/24/19 at 12:38; Status DC Active Scripts Active Clindamycin Hcl 300 Mg Capsule 1 Cap PO TID Reported Spironolactone 25 Mg Tablet 1 Tab PO DAILY Silvadene (Silver Sulfadiazine) 20 Gm Cream..g. 1 Agata TP DAILY 7 Days apply to affected area(s) Xarelto (Rivaroxaban) 20 Mg Tablet 1 Tab PO DAILY 30 Days with food Nystatin 15 Gm Cream..g. 1 Agata TP BID Miralax (Polyethylene Glycol 3350) 17 Gm Powd.pack 1 Packet PO DAILY PRN 2 Days dissolve in water Milk Of Magnesia (Magnesium Hydroxide) 400 Mg/5 Ml Oral.susp 400 Mg PO DAILY PRN Anti-Fungal Cream (Miconazole Nitrate) 113 Gm Cream..g. 1 Agata TP BID 14 Days Metoprolol Tartrate 50 Mg Tablet 1 Tab PO BID [place] Ultra Strength (Menthol) 1 Each Adh..patch 1 Each TP Q8HRS Losartan Potassium 100 Mg Tablet 100 Mg PO DAILY Lantus (Insulin Glargine,Hum.rec.anlog) 100 Unit/1 Ml Vial 35 Unit SQ DAILY08 Lantus (Insulin Glargine,Hum.rec.anlog) 100 Unit/1 Ml Vial 37 Unit SQ QHS Insulin Aspart 100 Unit/1 Ml Vial 25 Unit SQ TIDAC Gabapentin 600 Mg Tablet 600 Mg PO BID Furosemide 20 Mg Tablet 1 Tab PO DAILY Fluconazole 200 Mg Tablet 1 Tab PO QTU Fish Oil 1,000 Mg Softgel ([place]-3 Fatty Acids/Fish Oil) 1 Each Capsule 1 Cap PO BID 30 Days WITH MEALS Cetirizine Hcl 10 Mg Tablet 1 Tab PO DAILY Dulcolax (Bisacodyl) 5 Mg Tablet.dr 1 Tab PO TID PRN 1 Days Allergies Allergies: Coded Allergies: fosinopril (Verified Allergy, Severe, 08/23/19) amoxicillin (Verified Allergy, Intermediate, DIARRHEA AND VOMITING, 08/24/19) clavulanic acid (Verified Allergy, Intermediate, 08/23/19) erythromycin base (Verified Allergy, Intermediate, 08/23/19) metformin (Verified Allergy, Intermediate, 08/23/19) niacin (Verified Allergy, Intermediate, 08/23/19) pioglitazone (Verified Allergy, Intermediate, 08/23/19) simvastatin (Verified Allergy, Intermediate, 08/23/19) ROS General: YES: Fatigue, Malaise Physical Exam General: mild distress HEENT: Atraumatic Lungs: Other (Slightly decreased breath sounds) Heart: Regular rate Abdomen: Normal bowel sounds Vitals VITALS Vital Signs Date Time Temp Pulse Resp B/P (MAP) Pulse Ox O2 Delivery O2 Flow Rate FiO2 08/24/19 10:43 98.6 81 18 138/51 (80) 97 Room Air 98.6 Labs Labs Laboratory Tests Test 08/23/19 20:30 08/23/19 22:30 08/24/19 05:00 08/24/19 05:30 White Blood Count 6.9 x10^3/uL (4.0-11.0) Red Blood Count 2.75 x10^6/uL (4.30-5.70) Hemoglobin 8.1 g/dL (13.0-17.5) Hematocrit 24.0 % (39.0-53.0) Mean Corpuscular Volume 88 fL (79-100) Mean Corpuscular Hemoglobin 29 pg (25-35) Mean Corpuscular Hemoglobin Concent 34 g/dL (31-37) Red Cell Distribution Width 15.8 % (11.5-14.5) Platelet Count 248 x10^3/uL (140-400) Neutrophils (%) (Auto) 77 % (31-73) Lymphocytes (%) (Auto) 11 % (24-48) Monocytes (%) (Auto) 12 % (0-9) Eosinophils (%) (Auto) 0 % (0-3) Basophils (%) (Auto) 1 % (0-3) Neutrophils # (Auto) 5.3 x10^3/uL (1.8-7.7) Lymphocytes # (Auto) 0.7 x10^3/uL (1.0-4.8) Monocytes # (Auto) 0.8 x10^3/uL (0.0-1.1) Eosinophils # (Auto) 0.0 x10^3/uL (0.0-0.7) Basophils # (Auto) 0.0 x10^3/uL (0.0-0.2) Prothrombin Time 20.7 SEC (11.7-14.0) Prothromb Time International Ratio 1.8 (0.8-1.1) Sodium Level 140 mmol/L (136-145) 141 mmol/L (136-145) Potassium Level 4.5 mmol/L (3.5-5.1) 4.2 mmol/L (3.5-5.1) Chloride Level 108 mmol/L (98-107) 108 mmol/L (98-107) Carbon Dioxide Level 24 mmol/L (21-32) 20 mmol/L (21-32) Anion Gap 8 (6-14) 13 (6-14) Blood Urea Nitrogen 48 mg/dL (8-26) 40 mg/dL (8-26) Creatinine 1.8 mg/dL (0.7-1.3) 1.4 mg/dL (0.7-1.3) Estimated GFR (Cockcroft-Gault) 36.1 48.3 BUN/Creatinine Ratio 27 (6-20) Glucose Level 275 mg/dL (70-99) 207 mg/dL (70-99) Lactic Acid Level 1.6 mmol/L (0.4-2.0) Calcium Level 8.6 mg/dL (8.5-10.1) 8.3 mg/dL (8.5-10.1) Total Bilirubin 0.4 mg/dL (0.2-1.0) Aspartate Amino Transf (AST/SGOT) 25 U/L (15-37) Alanine Aminotransferase (ALT/SGPT) 17 U/L (16-63) Alkaline Phosphatase 54 U/L (46-116) Troponin I Quantitative 0.260 ng/mL (0.000-0.055) 0.148 ng/mL (0.000-0.055) 0.145 ng/mL (0.000-0.055) HT-Pie-J-Type Natriuretic Peptide 4809 pg/mL (0-449) Total Protein 7.3 g/dL (6.4-8.2) Albumin 2.4 g/dL (3.4-5.0) Albumin/Globulin Ratio 0.5 (1.0-1.7) Procalcitonin 0.18 ng/mL (0.00-0.10) Urine Collection Type Unknown Urine Color Yellow Urine Clarity Clear Urine pH 5.5 (<5.0-8.0) Urine Specific [place] 1.020 (1.000-1.030) Urine Protein Negative mg/dL (NEG-TRACE) Urine Glucose (UA) Negative mg/dL (NEG) Urine Ketones (Stick) Negative mg/dL (NEG) Urine Blood Negative (NEG) Urine Nitrite Negative (NEG) Urine Bilirubin Negative (NEG) Urine Urobilinogen Dipstick 0.2 mg/dL (0.2 mg/dL) Urine Leukocyte Esterase Negative (NEG) Urine RBC Occ /HPF (0-2) Urine WBC 1-4 /HPF (0-4) Urine Squamous Epithelial Cells Few /LPF Urine Bacteria Few /HPF (0-FEW) Urine Hyaline Casts Few /HPF Urine Granular Casts Few /HPF Urine Mucus Marked /LPF Test 08/24/19 07:49 08/24/19 11:05 Glucose (Fingerstick) 212 mg/dL (70-99) 293 mg/dL (70-99) Laboratory Tests Test 08/23/19 20:30 08/23/19 22:30 08/24/19 05:00 08/24/19 05:30 White Blood Count 6.9 x10^3/uL (4.0-11.0) Red Blood Count 2.75 x10^6/uL (4.30-5.70) Hemoglobin 8.1 g/dL (13.0-17.5) Hematocrit 24.0 % (39.0-53.0) Mean Corpuscular Volume 88 fL (79-100) Mean Corpuscular Hemoglobin 29 pg (25-35) Mean Corpuscular Hemoglobin Concent 34 g/dL (31-37) Red Cell Distribution Width 15.8 % (11.5-14.5) Platelet Count 248 x10^3/uL (140-400) Neutrophils (%) (Auto) 77 % (31-73) Lymphocytes (%) (Auto) 11 % (24-48) Monocytes (%) (Auto) 12 % (0-9) Eosinophils (%) (Auto) 0 % (0-3) Basophils (%) (Auto) 1 % (0-3) Neutrophils # (Auto) 5.3 x10^3/uL (1.8-7.7) Lymphocytes # (Auto) 0.7 x10^3/uL (1.0-4.8) Monocytes # (Auto) 0.8 x10^3/uL (0.0-1.1) Eosinophils # (Auto) 0.0 x10^3/uL (0.0-0.7) Basophils # (Auto) 0.0 x10^3/uL (0.0-0.2) Prothrombin Time 20.7 SEC (11.7-14.0) Prothromb Time International Ratio 1.8 (0.8-1.1) Sodium Level 140 mmol/L (136-145) 141 mmol/L (136-145) Potassium Level 4.5 mmol/L (3.5-5.1) 4.2 mmol/L (3.5-5.1) Chloride Level 108 mmol/L (98-107) 108 mmol/L (98-107) Carbon Dioxide Level 24 mmol/L (21-32) 20 mmol/L (21-32) Anion Gap 8 (6-14) 13 (6-14) Blood Urea Nitrogen 48 mg/dL (8-26) 40 mg/dL (8-26) Creatinine 1.8 mg/dL (0.7-1.3) 1.4 mg/dL (0.7-1.3) Estimated GFR (Cockcroft-Gault) 36.1 48.3 BUN/Creatinine Ratio 27 (6-20) Glucose Level 275 mg/dL (70-99) 207 mg/dL (70-99) Lactic Acid Level 1.6 mmol/L (0.4-2.0) Calcium Level 8.6 mg/dL (8.5-10.1) 8.3 mg/dL (8.5-10.1) Total Bilirubin 0.4 mg/dL (0.2-1.0) Aspartate Amino Transf (AST/SGOT) 25 U/L (15-37) Alanine Aminotransferase (ALT/SGPT) 17 U/L (16-63) Alkaline Phosphatase 54 U/L (46-116) Troponin I Quantitative 0.260 ng/mL (0.000-0.055) 0.148 ng/mL (0.000-0.055) 0.145 ng/mL (0.000-0.055) NR-Pfg-W-Type Natriuretic Peptide 4809 pg/mL (0-449) Total Protein 7.3 g/dL (6.4-8.2) Albumin 2.4 g/dL (3.4-5.0) Albumin/Globulin Ratio 0.5 (1.0-1.7) Procalcitonin 0.18 ng/mL (0.00-0.10) Urine Collection Type Unknown Urine Color Yellow Urine Clarity Clear Urine pH 5.5 (<5.0-8.0) Urine Specific [place] 1.020 (1.000-1.030) Urine Protein Negative mg/dL (NEG-TRACE) Urine Glucose (UA) Negative mg/dL (NEG) Urine Ketones (Stick) Negative mg/dL (NEG) Urine Blood Negative (NEG) Urine Nitrite Negative (NEG) Urine Bilirubin Negative (NEG) Urine Urobilinogen Dipstick 0.2 mg/dL (0.2 mg/dL) Urine Leukocyte Esterase Negative (NEG) Urine RBC Occ /HPF (0-2) Urine WBC 1-4 /HPF (0-4) Urine Squamous Epithelial Cells Few /LPF Urine Bacteria Few /HPF (0-FEW) Urine Hyaline Casts Few /HPF Urine Granular Casts Few /HPF Urine Mucus Marked /LPF Test 08/24/19 07:49 08/24/19 11:05 Glucose (Fingerstick) 212 mg/dL (70-99) 293 mg/dL (70-99) Assessment/Plan Assessment/Plan 1. Generalized weakness. Patient with mild anemia as well as renal insufficiency. Also when found to have cellulitis and is being treated by the ID service. We will continue present medications. Once COVID testing is negative we will check an echocardiogram for LV function. 2. History of coronary disease with minimally elevated troponin at 0.148 and 0.145. Probably demand mediated ischemia especially in the setting of anemia and elevated creatinine. Would continue rule out. Continue present medications. Echo as above. 3. Hypertension. Continue medications and monitor. 4. Diabetes mellitus. As per the primary service. 5. Cellulitis. Antibiotics as above. Thank you for allowing us to participate in the care of your patient. NIDA BENJAMIN MD Aug 24, 2019 12:54
[2019-08-24] MEDS: INSULIN LISPRO 300 UNITS/3 ML VIAL. SQ SCH ×2 (13:14→17:33)
--- NOTE | 2019-08-24 14:09 | CONS ---
DATE OF CONSULTATION: REQUESTING PHYSICIAN: Hospitalist. REASON FOR CONSULTATION: Renal failure. HISTORY OF PRESENT ILLNESS: This is an 84-year-old gentleman admitted to the hospital with generalized weakness and is noted to have ulcerations over the lower extremities. He is PUI for COVID-19. As such, a bedside examination was not pursued. The patient has history of diabetes mellitus, hypertension, congestive cardiomyopathy. On presentation, he has increased level of azotemia and as such, Nephrology evaluation requested. PAST MEDICAL HISTORY: Diabetes mellitus, hypertension, atrial fibrillation, congestive cardiomyopathy, chronic lymphedema, vein stripping. ALLERGIES: ERYTHROMYCIN AND AUGMENTIN. MEDICATIONS: Reviewed per medication list. FAMILY HISTORY: Noncontributory. SOCIAL HISTORY: The patient resides at [facility]. Former smoker. REVIEW OF SYSTEMS: Not obtained from the patient. PHYSICAL EXAMINATION: Bedside examination again was not done due to PUI COVID=19 status. Other examinations reviewed and are notable for chronic venous dermatitis with several weeping ulcerations. LABORATORY DATA: Sodium 141, potassium 4.2, chloride 108, CO2 of 20, BUN 40, creatinine 1.4, GFR 48, glucose 207. White count 6.9, hemoglobin 8.1, hematocrit 24%. Urinalysis; specific gravity 1.020, negative protein, negative glucose. IMPRESSION: 1. Chronic kidney disease stage 3, likely secondary to diabetes mellitus and hypertensive nephrosclerosis. 2. Chronic venous stasis with venous stasis ulcerations. 3. PUI COVID=19. PLAN: Fluid balance. Infectious Disease is addressing wound care and antibiotics. We will obtain an elective renal ultrasound. We will follow. HEMANTH COTE MD DR: LIVIER/iwona JOB#: [id number] / [id number]
[2019-08-24 15:00] VITALS: BP 147/63
[2019-08-24] MEDS: ANTI-COAG MONITOR BY PHARMACY. MC PRN (15:12)
--- NOTE | 2019-08-24 16:03 | RAD ---
RENAL COMPLETE BILATERAL: 08/24/2019 1:56 PM Indication: 84 years old Male. Reason: CKD/ COVID PENDING / Spl. Instructions: / History: . Comparison: None. FINDINGS: Examination is technically suboptimal secondary to patient body habitus. Sonographic evaluation of the kidneys is performed utilizing grayscale, color Doppler and spectral waveform analysis. Next line Right kidney: Size: 11.3 x 5.2 x 5.3cm. Collecting System: No hydronephrosis. No renal calculi detected. Parenchyma: Normal echotexture and morphology. No focal contour deforming renal mass. Left kidney: Size: 12.2 x 5.8 x 5.1cm. Collecting System: No hydronephrosis. No renal calculi detected. Parenchyma: Normal echotexture and morphology. No focal contour deforming renal mass. Urinary bladder: Underdistended. IMPRESSION: No sonographic evidence for obstructive uropathy. Electronically signed by: Bessie Wilkerson MD (08/24/2019 4:01 PM) [facility]
[2019-08-24] MEDS: RIVAROXABAN 10 MG TABLET. PO SCH (17:32)
[2019-08-24 19:00] VITALS: BP 116/69
[2019-08-24] MEDS: GABAPENTIN 300 MG CAPSULE. PO SCH (20:47)
[2019-08-24] MEDS: METOPROLOL TART IMMED RELEASE 50 MG TABLET. PO SCH (20:48)
[2019-08-24] MEDS: INSULIN GLARGINE SYRINGE. SQ SCH (20:50)
[2019-08-24] MEDS ORDERED: VANCOMYCIN 1.5 GM in IV NORMAL SALINE 500ML BAG 500 ML IV SCH (22:00)
[2019-08-24 23:00] VITALS: BP 103/54
[2019-08-25] MEDS: HYDROcodone/APAP 5/325MG 1 TAB TABLET PO PRN (01:01)
[2019-08-25 03:00] VITALS: BP 142/68
[2019-08-25 07:00] VITALS: BP 142/66
[2019-08-25] MEDS ORDERED: INSULIN GLARGINE SYRINGE. SQ SCH (08:00)
[2019-08-25] MEDS: CETIRIZINE HCL 10 MG TABLET. PO SCH (09:10)
[2019-08-25] MEDS: FUROSEMIDE 20 MG TABLET PO SCH (09:10)
[2019-08-25] MEDS: GABAPENTIN 300 MG CAPSULE. PO SCH ×2 (09:10→22:03)
[2019-08-25 09:20] LABS: BASO % 1 % (0-3); EOS % 0 % (0-3); HEMATOCRIT 24.5 % (39.0-53.0); HEMOGLOBIN 8.1 g/dL (13.0-17.5); LYMPH # 0.7 x10^3/uL (1.0-4.8); LYMPH % 10 % (24-48); MEAN CORPUSCULAR HEMOGLOBIN 29 pg (25-35); MEAN CORPUSCULAR HGB CONC 33 g/dL (31-37); MEAN CORPUSCULAR VOLUME 87 fL (79-100); MONO # 0.7 x10^3/uL (0.0-1.1); MONO % 10 % (0-9); NEUT # 5.6 x10^3/uL (1.8-7.7); NEUT % 79 % (31-73); PLATELET COUNT 250 x10^3/uL (140-400); RED BLOOD COUNT 2.81 x10^6/uL (4.30-5.70); RED CELL DISTRIBUTION WIDTH 15.4 % (11.5-14.5); WHITE BLOOD COUNT 7.1 x10^3/uL (4.0-11.0)
[2019-08-25 09:24] LABS: CALCIUM 8.2 mg/dL (8.5-10.1); CREATININE 1.3 mg/dL (0.7-1.3); GFR 52.6; MAGNESIUM 1.9 mg/dL (1.8-2.4); PHOSPHORUS 3.5 mg/dL (2.6-4.7); POTASSIUM 4.2 mmol/L (3.5-5.1)
[2019-08-25 09:28] LABS: ALBUMIN 2.2 g/dL (3.4-5.0); ALBUMIN/GLOBULIN RATIO 0.5 (1.0-1.7); CALCIUM 8.2 mg/dL (8.5-10.1); CREATININE 1.3 mg/dL (0.7-1.3); GFR 52.6; POTASSIUM 4.4 mmol/L (3.5-5.1); TOTAL BILIRUBIN 0.4 mg/dL (0.2-1.0); TOTAL PROTEIN 6.5 g/dL (6.4-8.2)
[2019-08-25] MEDS: METOPROLOL TART IMMED RELEASE 50 MG TABLET. PO SCH ×2 (09:29→22:03)
[2019-08-25] MEDS: INSULIN LISPRO 300 UNITS/3 ML VIAL. SQ SCH ×3 (09:30→18:19)
[2019-08-25 11:00] VITALS: BP 94/61
--- NOTE | 2019-08-25 11:16 | PDOC ---
Infectious Disease Note Subjective: Subjective Patient without complaints Patient has urinary incontinence which is soiling both lower extremity wounds Per RN awaiting Mcknight placement Denies fever, nausea, vomiting, shortness of breath, diarrhea, abdominal pain, rash Otherwise as above Vital Signs: Vital Signs Vital Signs Date Time Temp Pulse Resp B/P (MAP) Pulse Ox O2 Delivery O2 Flow Rate FiO2 08/25/19 09:29 71 142/66 08/25/19 07:00 98.3 19 97 Room Air 98.3 Physical Exam: PHYSICAL EXAM GENERAL: The patient is propped up in bed, alert, in no apparent distress. HEENT: Normal conjunctivae. Oropharynx pink and moist, no thrush. NECK: Supple. LUNGS: Clear to auscultation. No accessory muscle use. HEART: S1, S2. ABDOMEN: Obese, soft, nontender with bowel sounds present. EXTREMITIES: Chronic venous dermatitis with mild erythema and several ulcerations and weeping. No cyanosis. SKIN: Warm to touch. No signs of rash. NEUROLOGIC: Alert and answering questions appropriately, though a poor historian. Medications: Inpatient Meds: Current Medications Medications (Trade) Dose Ordered Sig/Harmeet Start Time Stop Time Status Last Admin Dose Admin Acetaminophen/ Hydrocodone Bitart (Lortab 5/325) 1 tab PRN Q4HRS PRN 08/24/19 10:00 08/25/19 01:01 1 TAB Bisacodyl (Dulcolax Tab) 5 mg PRN TID PRN 08/24/19 12:15 Cefepime HCl (Maxipime) 1 gm 1X ONCE 08/23/19 22:30 08/23/19 22:31 DC 08/23/19 22:48 1 GM Ceftriaxone Sodium (Rocephin) 1 gm Q24H 08/24/19 12:00 08/24/19 12:54 1 GM Cetirizine HCl (ZyrTEC) 10 mg DAILY 08/24/19 13:00 08/25/19 09:10 10 MG Dextrose (Dextrose 50%-Water Syringe) 12.5 gm PRN Q15MIN PRN 08/24/19 12:30 Furosemide (Lasix) 20 mg DAILY 08/24/19 13:00 08/25/19 09:10 20 MG Gabapentin (Neurontin) 600 mg BID 08/24/19 21:00 08/25/19 09:10 600 MG Info (Anti-Coagulation Monitoring By Pharmacy) 1 each PRN DAILY PRN 08/24/19 12:30 08/24/19 15:12 1 EACH Insulin Glargine (Lantus Syringe) 35 unit DAILY08 08/25/19 08:00 08/24/19 12:38 DC Insulin Human Lispro (HumaLOG) 0-7 UNITS TIDWMEALS 08/24/19 13:00 08/25/19 09:30 4 UNITS Levofloxacin/ Dextrose 50 ml @ 50 mls/hr Q24H 08/24/19 21:00 08/24/19 11:32 DC Levofloxacin/ Dextrose (Levaquin Per Pharmacy) 1 each PRN DAILY PRN 08/23/19 20:30 Cancel Magnesium Hydroxide (Milk Of Magnesia) 2,400 mg PRN DAILY PRN 08/24/19 12:18 Metoprolol Tartrate (Lopressor) 50 mg BID 08/24/19 21:00 08/25/19 09:29 50 MG Polyethylene Glycol (miraLAX PACKET) 17 gm PRN DAILY PRN 08/24/19 12:15 Rivaroxaban (Xarelto) 20 mg DAILY16 08/24/19 16:00 08/24/19 17:32 20 MG Sodium Chloride 500 ml @ 500 mls/hr 1X ONCE 08/23/19 20:30 08/23/19 21:29 DC 08/23/19 21:28 500 MLS/HR Vancomycin HCl (Vanco Per Pharmacy) 1 each PRN DAILY PRN 08/23/19 20:30 08/24/19 11:21 DC 08/24/19 02:07 1 EACH Vancomycin HCl (Vancomycin Trough Level) 1 each 1X ONCE 08/25/19 21:30 08/25/19 21:31 Cancel Vancomycin HCl 1.5 gm/Sodium Chloride 500 ml @ 250 mls/hr Q24H 08/24/19 22:00 08/24/19 11:20 DC Vancomycin HCl 2 gm/Sodium Chloride 500 ml @ 250 mls/hr 1X ONCE 08/23/19 22:00 08/23/19 23:59 DC 08/23/19 22:00 250 MLS/HR Labs: Lab Laboratory Tests Test 08/24/19 16:04 08/24/19 19:58 08/25/19 08:30 08/25/19 09:18 Glucose (Fingerstick) 258 mg/dL (70-99) 223 mg/dL (70-99) 214 mg/dL (70-99) White Blood Count 7.1 x10^3/uL (4.0-11.0) Red Blood Count 2.81 x10^6/uL (4.30-5.70) Hemoglobin 8.1 g/dL (13.0-17.5) Hematocrit 24.5 % (39.0-53.0) Mean Corpuscular Volume 87 fL (79-100) Mean Corpuscular Hemoglobin 29 pg (25-35) Mean Corpuscular Hemoglobin Concent 33 g/dL (31-37) Red Cell Distribution Width 15.4 % (11.5-14.5) Platelet Count 250 x10^3/uL (140-400) Neutrophils (%) (Auto) 79 % (31-73) Lymphocytes (%) (Auto) 10 % (24-48) Monocytes (%) (Auto) 10 % (0-9) Eosinophils (%) (Auto) 0 % (0-3) Basophils (%) (Auto) 1 % (0-3) Neutrophils # (Auto) 5.6 x10^3/uL (1.8-7.7) Lymphocytes # (Auto) 0.7 x10^3/uL (1.0-4.8) Monocytes # (Auto) 0.7 x10^3/uL (0.0-1.1) Eosinophils # (Auto) 0.0 x10^3/uL (0.0-0.7) Basophils # (Auto) 0.0 x10^3/uL (0.0-0.2) Sodium Level 141 mmol/L (136-145) Potassium Level 4.4 mmol/L (3.5-5.1) Chloride Level 107 mmol/L (98-107) Carbon Dioxide Level 24 mmol/L (21-32) Anion Gap 10 (6-14) Blood Urea Nitrogen 28 mg/dL (8-26) Creatinine 1.3 mg/dL (0.7-1.3) Estimated GFR (Cockcroft-Gault) 52.6 BUN/Creatinine Ratio 22 (6-20) Glucose Level 231 mg/dL (70-99) Calcium Level 8.2 mg/dL (8.5-10.1) Phosphorus Level 3.5 mg/dL (2.6-4.7) Magnesium Level 1.9 mg/dL (1.8-2.4) Total Bilirubin 0.4 mg/dL (0.2-1.0) Aspartate Amino Transf (AST/SGOT) 35 U/L (15-37) Alanine Aminotransferase (ALT/SGPT) 16 U/L (16-63) Alkaline Phosphatase 61 U/L (46-116) Total Protein 6.5 g/dL (6.4-8.2) Albumin 2.2 g/dL (3.4-5.0) Albumin/Globulin Ratio 0.5 (1.0-1.7) Objective: Assessment: 1. Mild cellulitis of lower extremities bilaterally. 2. 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 3. AUGMENTIN AND ERYTHROMYCIN ALLERGY. 4. Acute kidney injury. 5. Atrial fibrillation. 6. Generalized weakness. 7. Obesity. Plan: Plan of Care Rocephin s/p Vanco and Levaquin Local wound care as directed f/u cults and lab Maintain aspiration precautions COVID-19 pending Awaiting Mcknight placement due to urine urinary incontinence per CHON GUERRERO MD Aug 25, 2019 11:16
--- NOTE | 2019-08-25 11:16 | PDOC ---
PROGRESS NOTES Chief Complaint Chief Complaint A/P: Mild cellulitis of lower extremities bilaterally. 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 Acute renal failure due to vasomotor nephropathy Atrial fibrillation chads vas score of greater than 4 currently on Xarelto Troponinemia Severe malnutrition Debilitation Morbid obesity Generalized weakness. History of Present Illness History of Present Illness Mr Villalobos is an 84-year-old male, with past medical history of CAD, CHF, diabetes type 2, A. fib, who presents to the ED with generalized weakness for the last 2 weeks and is progressively gotten worse. Patient states that his weakness is mainly is is in his lower extremities and he does receive wound care for both of his legs due to venous insufficiency. Patient does suffer multiple wounds and possibly fungal infection that is also being treated by wound care. In the last couple days patient was not able to support his own weight and decided that he needed to be brought in. Patient resides at [facility] and feels that the care at [facility] is an adequate and would like to switch to a different location. Ultimately he would like to go home with home health and also receive physical therapy. Patient was tested negative for COVID recently patient does normally go to the [facility] for [place]. Denies fevers, shortness of breath, chest pain, abdominal pain, diarrhea, bloody stools, hematuria. Afebrile. He is worried about the time he and his are arrested and spent 3 days [facility]. He is confused he knows he is confused. Has been urinating on himself and his legs and buttocks are moist. Vitals Vitals Vital Signs Date Time Temp Pulse Resp B/P (MAP) Pulse Ox O2 Delivery O2 Flow Rate FiO2 08/25/19 09:29 71 142/66 08/25/19 07:00 98.3 19 97 Room Air 98.3 Physical Exam General: mild distress Heart: Regular rate Abdomen: Normal bowel sounds Labs LABS Laboratory Tests Test 08/24/19 16:04 08/24/19 19:58 08/25/19 08:30 08/25/19 09:18 Glucose (Fingerstick) 258 mg/dL (70-99) 223 mg/dL (70-99) 214 mg/dL (70-99) White Blood Count 7.1 x10^3/uL (4.0-11.0) Red Blood Count 2.81 x10^6/uL (4.30-5.70) Hemoglobin 8.1 g/dL (13.0-17.5) Hematocrit 24.5 % (39.0-53.0) Mean Corpuscular Volume 87 fL (79-100) Mean Corpuscular Hemoglobin 29 pg (25-35) Mean Corpuscular Hemoglobin Concent 33 g/dL (31-37) Red Cell Distribution Width 15.4 % (11.5-14.5) Platelet Count 250 x10^3/uL (140-400) Neutrophils (%) (Auto) 79 % (31-73) Lymphocytes (%) (Auto) 10 % (24-48) Monocytes (%) (Auto) 10 % (0-9) Eosinophils (%) (Auto) 0 % (0-3) Basophils (%) (Auto) 1 % (0-3) Neutrophils # (Auto) 5.6 x10^3/uL (1.8-7.7) Lymphocytes # (Auto) 0.7 x10^3/uL (1.0-4.8) Monocytes # (Auto) 0.7 x10^3/uL (0.0-1.1) Eosinophils # (Auto) 0.0 x10^3/uL (0.0-0.7) Basophils # (Auto) 0.0 x10^3/uL (0.0-0.2) Sodium Level 141 mmol/L (136-145) Potassium Level 4.4 mmol/L (3.5-5.1) Chloride Level 107 mmol/L (98-107) Carbon Dioxide Level 24 mmol/L (21-32) Anion Gap 10 (6-14) Blood Urea Nitrogen 28 mg/dL (8-26) Creatinine 1.3 mg/dL (0.7-1.3) Estimated GFR (Cockcroft-Gault) 52.6 BUN/Creatinine Ratio 22 (6-20) Glucose Level 231 mg/dL (70-99) Calcium Level 8.2 mg/dL (8.5-10.1) Phosphorus Level 3.5 mg/dL (2.6-4.7) Magnesium Level 1.9 mg/dL (1.8-2.4) Total Bilirubin 0.4 mg/dL (0.2-1.0) Aspartate Amino Transf (AST/SGOT) 35 U/L (15-37) Alanine Aminotransferase (ALT/SGPT) 16 U/L (16-63) Alkaline Phosphatase 61 U/L (46-116) Total Protein 6.5 g/dL (6.4-8.2) Albumin 2.2 g/dL (3.4-5.0) Albumin/Globulin Ratio 0.5 (1.0-1.7) Assessment and Plan Assessmemt and Plan Problems Medical Problems: (1) Cellulitis Status: Acute (2) Troponin level elevated Status: Acute Comment Review of Relevant I have reviewed the following items rayshawn (where applicable) has been applied. Labs Laboratory Tests Test 08/23/19 20:30 08/23/19 22:30 08/24/19 05:00 08/24/19 05:30 White Blood Count 6.9 x10^3/uL (4.0-11.0) Red Blood Count 2.75 x10^6/uL (4.30-5.70) Hemoglobin 8.1 g/dL (13.0-17.5) Hematocrit 24.0 % (39.0-53.0) Mean Corpuscular Volume 88 fL (79-100) Mean Corpuscular Hemoglobin 29 pg (25-35) Mean Corpuscular Hemoglobin Concent 34 g/dL (31-37) Red Cell Distribution Width 15.8 % (11.5-14.5) Platelet Count 248 x10^3/uL (140-400) Neutrophils (%) (Auto) 77 % (31-73) Lymphocytes (%) (Auto) 11 % (24-48) Monocytes (%) (Auto) 12 % (0-9) Eosinophils (%) (Auto) 0 % (0-3) Basophils (%) (Auto) 1 % (0-3) Neutrophils # (Auto) 5.3 x10^3/uL (1.8-7.7) Lymphocytes # (Auto) 0.7 x10^3/uL (1.0-4.8) Monocytes # (Auto) 0.8 x10^3/uL (0.0-1.1) Eosinophils # (Auto) 0.0 x10^3/uL (0.0-0.7) Basophils # (Auto) 0.0 x10^3/uL (0.0-0.2) Prothrombin Time 20.7 SEC (11.7-14.0) Prothromb Time International Ratio 1.8 (0.8-1.1) Sodium Level 140 mmol/L (136-145) 141 mmol/L (136-145) Potassium Level 4.5 mmol/L (3.5-5.1) 4.2 mmol/L (3.5-5.1) Chloride Level 108 mmol/L (98-107) 108 mmol/L (98-107) Carbon Dioxide Level 24 mmol/L (21-32) 20 mmol/L (21-32) Anion Gap 8 (6-14) 13 (6-14) Blood Urea Nitrogen 48 mg/dL (8-26) 40 mg/dL (8-26) Creatinine 1.8 mg/dL (0.7-1.3) 1.4 mg/dL (0.7-1.3) Estimated GFR (Cockcroft-Gault) 36.1 48.3 BUN/Creatinine Ratio 27 (6-20) Glucose Level 275 mg/dL (70-99) 207 mg/dL (70-99) Lactic Acid Level 1.6 mmol/L (0.4-2.0) Calcium Level 8.6 mg/dL (8.5-10.1) 8.3 mg/dL (8.5-10.1) Total Bilirubin 0.4 mg/dL (0.2-1.0) Aspartate Amino Transf (AST/SGOT) 25 U/L (15-37) Alanine Aminotransferase (ALT/SGPT) 17 U/L (16-63) Alkaline Phosphatase 54 U/L (46-116) Troponin I Quantitative 0.260 ng/mL (0.000-0.055) 0.148 ng/mL (0.000-0.055) 0.145 ng/mL (0.000-0.055) OT-Qtc-M-Type Natriuretic Peptide 4809 pg/mL (0-449) Total Protein 7.3 g/dL (6.4-8.2) Albumin 2.4 g/dL (3.4-5.0) Albumin/Globulin Ratio 0.5 (1.0-1.7) Procalcitonin 0.18 ng/mL (0.00-0.10) Urine Collection Type Unknown Urine Color Yellow Urine Clarity Clear Urine pH 5.5 (<5.0-8.0) Urine Specific [place] 1.020 (1.000-1.030) Urine Protein Negative mg/dL (NEG-TRACE) Urine Glucose (UA) Negative mg/dL (NEG) Urine Ketones (Stick) Negative mg/dL (NEG) Urine Blood Negative (NEG) Urine Nitrite Negative (NEG) Urine Bilirubin Negative (NEG) Urine Urobilinogen Dipstick 0.2 mg/dL (0.2 mg/dL) Urine Leukocyte Esterase Negative (NEG) Urine RBC Occ /HPF (0-2) Urine WBC 1-4 /HPF (0-4) Urine Squamous Epithelial Cells Few /LPF Urine Bacteria Few /HPF (0-FEW) Urine Hyaline Casts Few /HPF Urine Granular Casts Few /HPF Urine Mucus Marked /LPF Test 08/24/19 07:49 08/24/19 11:05 08/24/19 16:04 08/24/19 19:58 Glucose (Fingerstick) 212 mg/dL (70-99) 293 mg/dL (70-99) 258 mg/dL (70-99) 223 mg/dL (70-99) Test 08/25/19 08:30 08/25/19 09:18 White Blood Count 7.1 x10^3/uL (4.0-11.0) Red Blood Count 2.81 x10^6/uL (4.30-5.70) Hemoglobin 8.1 g/dL (13.0-17.5) Hematocrit 24.5 % (39.0-53.0) Mean Corpuscular Volume 87 fL (79-100) Mean Corpuscular Hemoglobin 29 pg (25-35) Mean Corpuscular Hemoglobin Concent 33 g/dL (31-37) Red Cell Distribution Width 15.4 % (11.5-14.5) Platelet Count 250 x10^3/uL (140-400) Neutrophils (%) (Auto) 79 % (31-73) Lymphocytes (%) (Auto) 10 % (24-48) Monocytes (%) (Auto) 10 % (0-9) Eosinophils (%) (Auto) 0 % (0-3) Basophils (%) (Auto) 1 % (0-3) Neutrophils # (Auto) 5.6 x10^3/uL (1.8-7.7) Lymphocytes # (Auto) 0.7 x10^3/uL (1.0-4.8) Monocytes # (Auto) 0.7 x10^3/uL (0.0-1.1) Eosinophils # (Auto) 0.0 x10^3/uL (0.0-0.7) Basophils # (Auto) 0.0 x10^3/uL (0.0-0.2) Sodium Level 141 mmol/L (136-145) Potassium Level 4.4 mmol/L (3.5-5.1) Chloride Level 107 mmol/L (98-107) Carbon Dioxide Level 24 mmol/L (21-32) Anion Gap 10 (6-14) Blood Urea Nitrogen 28 mg/dL (8-26) Creatinine 1.3 mg/dL (0.7-1.3) Estimated GFR (Cockcroft-Gault) 52.6 BUN/Creatinine Ratio 22 (6-20) Glucose Level 231 mg/dL (70-99) Calcium Level 8.2 mg/dL (8.5-10.1) Phosphorus Level 3.5 mg/dL (2.6-4.7) Magnesium Level 1.9 mg/dL (1.8-2.4) Total Bilirubin 0.4 mg/dL (0.2-1.0) Aspartate Amino Transf (AST/SGOT) 35 U/L (15-37) Alanine Aminotransferase (ALT/SGPT) 16 U/L (16-63) Alkaline Phosphatase 61 U/L (46-116) Total Protein 6.5 g/dL (6.4-8.2) Albumin 2.2 g/dL (3.4-5.0) Albumin/Globulin Ratio 0.5 (1.0-1.7) Glucose (Fingerstick) 214 mg/dL (70-99) Laboratory Tests Test 08/24/19 16:04 08/24/19 19:58 08/25/19 08:30 08/25/19 09:18 Glucose (Fingerstick) 258 mg/dL (70-99) 223 mg/dL (70-99) 214 mg/dL (70-99) White Blood Count 7.1 x10^3/uL (4.0-11.0) Red Blood Count 2.81 x10^6/uL (4.30-5.70) Hemoglobin 8.1 g/dL (13.0-17.5) Hematocrit 24.5 % (39.0-53.0) Mean Corpuscular Volume 87 fL (79-100) Mean Corpuscular Hemoglobin 29 pg (25-35) Mean Corpuscular Hemoglobin Concent 33 g/dL (31-37) Red Cell Distribution Width 15.4 % (11.5-14.5) Platelet Count 250 x10^3/uL (140-400) Neutrophils (%) (Auto) 79 % (31-73) Lymphocytes (%) (Auto) 10 % (24-48) Monocytes (%) (Auto) 10 % (0-9) Eosinophils (%) (Auto) 0 % (0-3) Basophils (%) (Auto) 1 % (0-3) Neutrophils # (Auto) 5.6 x10^3/uL (1.8-7.7) Lymphocytes # (Auto) 0.7 x10^3/uL (1.0-4.8) Monocytes # (Auto) 0.7 x10^3/uL (0.0-1.1) Eosinophils # (Auto) 0.0 x10^3/uL (0.0-0.7) Basophils # (Auto) 0.0 x10^3/uL (0.0-0.2) Sodium Level 141 mmol/L (136-145) Potassium Level 4.4 mmol/L (3.5-5.1) Chloride Level 107 mmol/L (98-107) Carbon Dioxide Level 24 mmol/L (21-32) Anion Gap 10 (6-14) Blood Urea Nitrogen 28 mg/dL (8-26) Creatinine 1.3 mg/dL (0.7-1.3) Estimated GFR (Cockcroft-Gault) 52.6 BUN/Creatinine Ratio 22 (6-20) Glucose Level 231 mg/dL (70-99) Calcium Level 8.2 mg/dL (8.5-10.1) Phosphorus Level 3.5 mg/dL (2.6-4.7) Magnesium Level 1.9 mg/dL (1.8-2.4) Total Bilirubin 0.4 mg/dL (0.2-1.0) Aspartate Amino Transf (AST/SGOT) 35 U/L (15-37) Alanine Aminotransferase (ALT/SGPT) 16 U/L (16-63) Alkaline Phosphatase 61 U/L (46-116) Total Protein 6.5 g/dL (6.4-8.2) Albumin 2.2 g/dL (3.4-5.0) Albumin/Globulin Ratio 0.5 (1.0-1.7) Microbiology 08/23/19 Blood Culture - Preliminary, Resulted NO GROWTH AFTER 1 DAY 08/23/19 Gram Stain - Final, Resulted 08/23/19 Aerobic Culture, Resulted Pending Medications Current Medications Vancomycin HCl (Vanco Per Pharmacy) 1 each PRN DAILY PRN MC SEE COMMENTS Last administered on 08/24/19at 02:07; Start 08/23/19 at 20:30; Stop 08/24/19 at 11:21; Status DC Levofloxacin/ Dextrose (Levaquin Per Pharmacy) 1 each PRN DAILY PRN MC SEE COMMENTS; Start 08/23/19 at 20:30; Status Cancel Sodium Chloride 500 ml @ 500 mls/hr 1X ONCE IV Last administered on 08/23/19at 21:28; Start 08/23/19 at 20:30; Stop 08/23/19 at 21:29; Status DC Levofloxacin/ Dextrose 150 ml @ 100 mls/hr 1X ONCE IV Last administered on 08/23/19at 21:28; Start 08/23/19 at 21:00; Stop 08/23/19 at 22:29; Status DC Vancomycin HCl 2 gm/Sodium Chloride 500 ml @ 250 mls/hr 1X ONCE IV Last administered on 08/23/19at 22:00; Start 08/23/19 at 22:00; Stop 08/23/19 at 23:59; Status DC Rivaroxaban (Xarelto) 15 mg 1X ONCE PO Last administered on 08/23/19at 22:48; Start 08/23/19 at 22:00; Stop 08/23/19 at 22:01; Status DC Cefepime HCl (Maxipime) 1 gm 1X ONCE IVP Last administered on 08/23/19at 22:48; Start 08/23/19 at 22:30; Stop 08/23/19 at 22:31; Status DC Levofloxacin/ Dextrose 50 ml @ 50 mls/hr Q24H IV ; Start 08/24/19 at 21:00; Stop 08/24/19 at 11:32; Status DC Vancomycin HCl 1.5 gm/Sodium Chloride 500 ml @ 250 mls/hr Q24H IV ; Start 08/24/19 at 22:00; Stop 08/24/19 at 11:20; Status DC Vancomycin HCl (Vancomycin Trough Level) 1 each 1X ONCE MC ; Start 08/25/19 at 21:30; Stop 08/25/19 at 21:31; Status Cancel Acetaminophen/ Hydrocodone Bitart (Lortab 5/325) 1 tab PRN Q4HRS PRN PO MODERATE PAIN Last administered on 08/25/19at 01:01; Start 08/24/19 at 10:00 Ceftriaxone Sodium (Rocephin) 1 gm Q24H IVP Last administered on 08/24/19at 12:54; Start 08/24/19 at 12:00 Bisacodyl (Dulcolax Tab) 5 mg PRN TID PRN PO CONSTIPATION 1ST CHOICE; Start 08/24/19 at 12:15 Cetirizine HCl (ZyrTEC) 10 mg DAILY PO Last administered on 08/25/19at 09:10; Start 08/24/19 at 13:00 Furosemide (Lasix) 20 mg DAILY PO Last administered on 08/25/19 09:10; Start 08/24/19 at 13:00 Magnesium Hydroxide (Milk Of Magnesia) 400 mg PRN DAILY PRN PO CONSTIPATION; Start 08/24/19 at 12:15; Stop 08/24/19 at 12:18; Status DC Metoprolol Tartrate (Lopressor) 50 mg BID PO Last administered on 08/25/19at 09:29; Start 08/24/19 at 21:00 Polyethylene Glycol (miraLAX PACKET) 17 gm PRN DAILY PRN PO CONSTIPATION 2ND CHOICE; Start 08/24/19 at 12:15 Gabapentin (Neurontin) 600 mg BID PO Last administered on 08/25/19at 09:10; Start 08/24/19 at 21:00 Rivaroxaban (Xarelto) 20 mg DAILY16 PO Last administered on 08/24/19at 17:32; Start 08/24/19 at 16:00 Magnesium Hydroxide (Milk Of Magnesia) 2,400 mg PRN DAILY PRN PO CONSTIPATION; Start 08/24/19 at 12:18 Info (Anti-Coagulation Monitoring By Pharmacy) 1 each PRN DAILY PRN MC SEE COMMENTS Last administered on 08/24/19at 15:12; Start 08/24/19 at 12:30 Insulin Human Lispro (HumaLOG) 0-7 UNITS TIDWMEALS SQ Last administered on 08/25/19at 09:30; Start 08/24/19 at 13:00 Dextrose (Dextrose 50%-Water Syringe) 12.5 gm PRN Q15MIN PRN IV SEE COMMENTS; Start 08/24/19 at 12:30 Insulin Glargine (Lantus Syringe) 37 unit QHS SQ Last administered on 08/24/19at 20:50; Start 08/24/19 at 21:00 Insulin Glargine (Lantus Syringe) 35 unit DAILY08 SQ ; Start 08/25/19 at 08:00; Stop 08/24/19 at 12:38; Status DC Active Scripts Active Clindamycin Hcl 300 Mg Capsule 1 Cap PO TID Reported Spironolactone 25 Mg Tablet 1 Tab PO DAILY Silvadene (Silver Sulfadiazine) 20 Gm Cream..g. 1 Agata TP DAILY 7 Days apply to affected area(s) Xarelto (Rivaroxaban) 20 Mg Tablet 1 Tab PO DAILY 30 Days with food Nystatin 15 Gm Cream..g. 1 Agata TP BID Miralax (Polyethylene Glycol 3350) 17 Gm Powd.pack 1 Packet PO DAILY PRN 2 Days dissolve in water Milk Of Magnesia (Magnesium Hydroxide) 400 Mg/5 Ml Oral.susp 400 Mg PO DAILY PRN Anti-Fungal Cream (Miconazole Nitrate) 113 Gm Cream..g. 1 Agata TP BID 14 Days Metoprolol Tartrate 50 Mg Tablet 1 Tab PO BID Bengay Ultra Strength (Menthol) 1 Each Adh..patch 1 Each TP Q8HRS Losartan Potassium 100 Mg Tablet 100 Mg PO DAILY Lantus (Insulin Glargine,Hum.rec.anlog) 100 Unit/1 Ml Vial 35 Unit SQ DAILY08 Lantus (Insulin Glargine,Hum.rec.anlog) 100 Unit/1 Ml Vial 37 Unit SQ QHS Insulin Aspart 100 Unit/1 Ml Vial 25 Unit SQ TIDAC Gabapentin 600 Mg Tablet 600 Mg PO BID Furosemide 20 Mg Tablet 1 Tab PO DAILY Fluconazole 200 Mg Tablet 1 Tab PO QTU Fish Oil 1,000 Mg Softgel ([place]-3 Fatty Acids/Fish Oil) 1 Each Capsule 1 Cap PO BID 30 Days WITH MEALS Cetirizine Hcl 10 Mg Tablet 1 Tab PO DAILY Dulcolax (Bisacodyl) 5 Mg Tablet.dr 1 Tab PO TID PRN 1 Days Vitals/I & O Vital Sign - Last 24 Hours 08/24/19 08/24/19 08/24/19 08/24/19 15:00 19:00 20:00 20:48 Temp 98.0 99.1 98.0 99.1 Pulse 78 75 Resp 18 20 22 B/P (MAP) 147/63 (91) 116/69 (85) Pulse Ox 99 98 O2 Delivery Room Air Room Air Room Air Room Air 08/24/19 08/24/19 08/24/19 08/25/19 20:48 21:45 23:00 01:01 Temp 98.1 98.1 Pulse 75 82 Resp 19 23 18 B/P (MAP) 116/69 103/54 (70) Pulse Ox 94 O2 Delivery Room Air Room Air Room Air 08/25/19 08/25/19 08/25/19 08/25/19 02:00 03:00 07:00 09:29 Temp 98.3 98.3 98.3 98.3 Pulse 78 71 71 Resp 18 19 B/P (MAP) 142/68 (92) 142/66 (91) 142/66 Pulse Ox 95 97 O2 Delivery Room Air Room Air Room Air Intake and Output 08/24/19 08/24/19 08/25/19 15:00 23:00 07:00 Intake Total 600 ml 300 ml Output Total 900 ml 0 ml Balance -300 ml 300 ml 0 ml Justicifation of Admission Dx: Justifications for Admission: Justification of Admission Dx: Yes LARA MERAZ MD Aug 25, 2019 11:16
[2019-08-25] MEDS: cefTRIAXone IV Push 1 GM VIAL. IVP SCH (12:51)
--- NOTE | 2019-08-25 14:31 | NUR ---
SW following. Spoke with RN reviewed chart. Pt resides in [facility] at the [facility], , (fax) with his . ERIC called and coordinated care with Mariajose at the [facility]. Pt's dtr Marissa ([phone]) has recently been declared guardian. Mariajose and pt's dtr stating pt need PT/OT prior to returning to [facility]. Pt on room air and IV Rocephin. Cultures are pending. COVID results are pending. PT/OT evaluation pending. LVM for [facility] the OR ER[facility]. Pt's dtr Marissa would like a referral sent to [facility] acute rehab as they are contracted with the OR. ERIC completed Patient Choice of Vendor form. ERIC phoned and faxed referral to Musa at [facility], , (fax). ERIC to continue following.
[2019-08-25 15:00] VITALS: BP 117/54
--- NOTE | 2019-08-25 15:34 | PDOC ---
Renal-Progress Notes Subjective Notes Notes NONE History of Present Illness Hx of present illness STABLE Vitals Vitals Vital Signs Date Time Temp Pulse Resp B/P (MAP) Pulse Ox O2 Delivery O2 Flow Rate FiO2 08/25/19 09:29 71 142/66 08/25/19 07:00 98.3 19 97 Room Air 98.3 Weight Weight [ ] I.O. Intake and Output Intake and Output 08/25/19 07:00 Intake Total 900 ml Output Total 900 ml Balance 0 ml Intake Oral 900 ml Output Urine Total 900 ml # Voids 5 Labs Labs Laboratory Tests Test 08/24/19 16:04 08/24/19 19:58 08/25/19 08:30 08/25/19 09:18 Glucose (Fingerstick) 258 mg/dL (70-99) 223 mg/dL (70-99) 214 mg/dL (70-99) White Blood Count 7.1 x10^3/uL (4.0-11.0) Red Blood Count 2.81 x10^6/uL (4.30-5.70) Hemoglobin 8.1 g/dL (13.0-17.5) Hematocrit 24.5 % (39.0-53.0) Mean Corpuscular Volume 87 fL (79-100) Mean Corpuscular Hemoglobin 29 pg (25-35) Mean Corpuscular Hemoglobin Concent 33 g/dL (31-37) Red Cell Distribution Width 15.4 % (11.5-14.5) Platelet Count 250 x10^3/uL (140-400) Neutrophils (%) (Auto) 79 % (31-73) Lymphocytes (%) (Auto) 10 % (24-48) Monocytes (%) (Auto) 10 % (0-9) Eosinophils (%) (Auto) 0 % (0-3) Basophils (%) (Auto) 1 % (0-3) Neutrophils # (Auto) 5.6 x10^3/uL (1.8-7.7) Lymphocytes # (Auto) 0.7 x10^3/uL (1.0-4.8) Monocytes # (Auto) 0.7 x10^3/uL (0.0-1.1) Eosinophils # (Auto) 0.0 x10^3/uL (0.0-0.7) Basophils # (Auto) 0.0 x10^3/uL (0.0-0.2) Sodium Level 141 mmol/L (136-145) Potassium Level 4.4 mmol/L (3.5-5.1) Chloride Level 107 mmol/L (98-107) Carbon Dioxide Level 24 mmol/L (21-32) Anion Gap 10 (6-14) Blood Urea Nitrogen 28 mg/dL (8-26) Creatinine 1.3 mg/dL (0.7-1.3) Estimated GFR (Cockcroft-Gault) 52.6 BUN/Creatinine Ratio 22 (6-20) Glucose Level 231 mg/dL (70-99) Calcium Level 8.2 mg/dL (8.5-10.1) Phosphorus Level 3.5 mg/dL (2.6-4.7) Magnesium Level 1.9 mg/dL (1.8-2.4) Total Bilirubin 0.4 mg/dL (0.2-1.0) Aspartate Amino Transf (AST/SGOT) 35 U/L (15-37) Alanine Aminotransferase (ALT/SGPT) 16 U/L (16-63) Alkaline Phosphatase 61 U/L (46-116) Total Protein 6.5 g/dL (6.4-8.2) Albumin 2.2 g/dL (3.4-5.0) Albumin/Globulin Ratio 0.5 (1.0-1.7) Test 08/25/19 12:57 Glucose (Fingerstick) 253 mg/dL (70-99) Micro Micro Microbiology 08/23/19 Blood Culture - Preliminary, Resulted NO GROWTH AFTER 1 DAY 08/23/19 Gram Stain - Final, Resulted 08/23/19 Aerobic Culture - Preliminary, Resulted Review of Systems Constitutional: yes: other (CONFUSED) Physical Exam General Appearance: no apparent distress Skin: warm Respiratory: bilateral CTA Heart: S1S2 Extremities: pulses present, atrophy Neurology: alert Assessment Assessment IMP RUSS-RESOLVED CKD STAGE 3-CR STABLE AT 1.3 LE CELLULITIS PLAN RULE OUT COVID 19 ANTIBIOTICS LABS IN AM BRICE MCCLENDON MD Aug 25, 2019 15:33
--- NOTE | 2019-08-25 15:44 | NUR ---
Wound Care Wound care consult for multiple wounds. Pt is COVID 19 pending so photos assessed and ABD and kerlix daily and A&D to scrotum and buttocks BID and PRN. WC will follow up after results obtained.
[2019-08-25] MEDS: RIVAROXABAN 10 MG TABLET. PO SCH (18:06)
[2019-08-25 19:15] VITALS: BP 108/55
[2019-08-25] MEDS ORDERED: ZINC OXIDE 20% TOPICAL OINTMENT 28GM TUBE. TP PRN (20:00)
[2019-08-25] MEDS: LACTOBACILLUS RHAMNOSUS GG 1 CAPSULE. PO SCH (22:02)
[2019-08-25] MEDS: INSULIN GLARGINE SYRINGE. SQ SCH (22:05)
[2019-08-25 23:00] VITALS: BP 143/74
[2019-08-26] MEDS: HYDROcodone/APAP 5/325MG 1 TAB TABLET PO PRN ×2 (01:36→15:17)
[2019-08-26 03:00] VITALS: BP 111/87
--- NOTE | 2019-08-26 04:41 | EKG ---
[facility] [address] [place] [address] Test Date: 2019-08-23 Test Time: 21:02:42 Pat Name: DEYA PAGE Department: Room: Gender: M [employer] Test Engineer: : [id number] Requested By: MAUREEN LINDO Order Number: [id number] Reading MD: Measurements Intervals Cascade Rate: 72 P: 54 [place]: 222 QRS: -36 QRSD: 80 T: -4 QT: 392 QTc: 431 Interpretive Statements SINUS RHYTHM PROLONGED [place] INTERVAL ABNORMAL LEFT AXIS DEVIATION LEFT ANTERIOR FASCICULAR BLOCK QRS(T) CONTOUR ABNORMALITY CONSISTENT WITH ANTEROSEPTAL INFARCT PROBABLY OLD ABNORMAL ECG RI6.01 No previous ECG available for comparison
[2019-08-26 04:44] LABS: CALCIUM 8.2 mg/dL (8.5-10.1); CREATININE 1.3 mg/dL (0.7-1.3); GFR 52.6; POTASSIUM 4.4 mmol/L (3.5-5.1)
[2019-08-26 07:10] VITALS: BP 190/84
[2019-08-26] MEDS: INSULIN LISPRO 300 UNITS/3 ML VIAL. SQ SCH ×3 (09:37→17:22)
[2019-08-26] MEDS: GABAPENTIN 300 MG CAPSULE. PO SCH ×2 (09:39→21:53)
[2019-08-26] MEDS: CETIRIZINE HCL 10 MG TABLET. PO SCH (09:39)
[2019-08-26] MEDS: LACTOBACILLUS RHAMNOSUS GG 1 CAPSULE. PO SCH ×2 (09:39→21:55)
[2019-08-26] MEDS: FUROSEMIDE 20 MG TABLET PO SCH (09:40)
[2019-08-26] MEDS: METOPROLOL TART IMMED RELEASE 50 MG TABLET. PO SCH ×2 (09:40→21:53)
--- NOTE | 2019-08-26 10:30 | PDOC ---
Infectious Disease Note Subjective: Subjective Patient febrile today T-max 100.8 Eager for discharge home due to social issues Denies nausea, vomiting, shortness of breath, diarrhea, abdominal pain, rash Otherwise as above Vital Signs: Vital Signs Vital Signs Date Time Temp Pulse Resp B/P (MAP) Pulse Ox O2 Delivery O2 Flow Rate FiO2 08/26/19 09:40 81 190/84 08/26/19 08:30 Room Air 08/26/19 07:10 98.3 17 93 98.3 Physical Exam: PHYSICAL EXAM GENERAL: The patient is propped up in bed, alert, in no apparent distress. HEENT: Normal conjunctivae. Oropharynx pink and moist, no thrush. NECK: Supple. LUNGS: Clear to auscultation. No accessory muscle use. HEART: S1, S2. ABDOMEN: Obese, soft, nontender with bowel sounds present. Mcknight in place EXTREMITIES: Chronic venous dermatitis with mild erythema and several ulcerations and weeping. No cyanosis. SKIN: Warm to touch. No signs of rash. NEUROLOGIC: Alert and answering questions appropriately, though a poor historian. Medications: Inpatient Meds: Current Medications Medications (Trade) Dose Ordered Sig/Harmeet Start Time Stop Time Status Last Admin Dose Admin Acetaminophen/ Hydrocodone Bitart (Lortab 5/325) 1 tab PRN Q4HRS PRN 08/24/19 10:00 08/26/19 01:36 1 TAB Bisacodyl (Dulcolax Tab) 5 mg PRN TID PRN 08/24/19 12:15 Cefepime HCl (Maxipime) 1 gm 1X ONCE 08/23/19 22:30 08/23/19 22:31 DC 08/23/19 22:48 1 GM Ceftriaxone Sodium (Rocephin) 1 gm Q24H 08/24/19 12:00 08/25/19 12:51 1 GM Cetirizine HCl (ZyrTEC) 10 mg DAILY 08/24/19 13:00 08/26/19 09:39 10 MG Dextrose (Dextrose 50%-Water Syringe) 12.5 gm PRN Q15MIN PRN 08/24/19 12:30 Furosemide (Lasix) 20 mg DAILY 08/24/19 13:00 08/26/19 09:40 20 MG Gabapentin (Neurontin) 600 mg BID 7/19/20 21:00 08/26/19 09:39 600 MG Info (Anti-Coagulation Monitoring By Pharmacy) 1 each PRN DAILY PRN 08/24/19 12:30 08/24/19 15:12 1 EACH Insulin Glargine (Lantus Syringe) 35 unit DAILY08 08/25/19 08:00 08/24/19 12:38 DC Insulin Human Lispro (HumaLOG) 0-7 UNITS TIDWMEALS 08/24/19 13:00 08/26/19 09:37 4 UNITS Lactobacillus Rhamnosus (Culturelle) 1 cap BID 08/25/19 21:00 08/26/19 09:39 1 CAP Levofloxacin/ Dextrose 50 ml @ 50 mls/hr Q24H 08/24/19 21:00 08/24/19 11:32 DC Levofloxacin/ Dextrose (Levaquin Per Pharmacy) 1 each PRN DAILY PRN 08/23/19 20:30 Cancel Magnesium Hydroxide (Milk Of Magnesia) 2,400 mg PRN DAILY PRN 08/24/19 12:18 Metoprolol Tartrate (Lopressor) 50 mg BID 08/24/19 21:00 08/26/19 09:40 50 MG Polyethylene Glycol (miraLAX PACKET) 17 gm PRN DAILY PRN 08/24/19 12:15 Rivaroxaban (Xarelto) 20 mg DAILY16 08/24/19 16:00 08/25/19 18:06 20 MG Sodium Chloride 500 ml @ 500 mls/hr 1X ONCE 08/23/19 20:30 08/23/19 21:29 DC 08/23/19 21:28 500 MLS/HR Vancomycin HCl (Vanco Per Pharmacy) 1 each PRN DAILY PRN 08/23/19 20:30 08/24/19 11:21 DC 08/24/19 02:07 1 EACH Vancomycin HCl (Vancomycin Trough Level) 1 each 1X ONCE 08/25/19 21:30 08/25/19 21:31 Cancel Vancomycin HCl 1.5 gm/Sodium Chloride 500 ml @ 250 mls/hr Q24H 08/24/19 22:00 08/24/19 11:20 DC Vancomycin HCl 2 gm/Sodium Chloride 500 ml @ 250 mls/hr 1X ONCE 08/23/19 22:00 08/23/19 23:59 DC 7/18/20 22:00 250 MLS/HR Zinc Oxide (Zinc Oxide 20% Topical) 1 esther TID PRN 08/25/19 20:00 Labs: Lab Laboratory Tests Test 08/25/19 12:57 08/25/19 18:10 08/25/19 21:53 08/26/19 03:40 Glucose (Fingerstick) 253 mg/dL (70-99) 303 mg/dL (70-99) 301 mg/dL (70-99) Sodium Level 138 mmol/L (136-145) Potassium Level 4.4 mmol/L (3.5-5.1) Chloride Level 104 mmol/L (98-107) Carbon Dioxide Level 23 mmol/L (21-32) Anion Gap 11 (6-14) Blood Urea Nitrogen 29 mg/dL (8-26) Creatinine 1.3 mg/dL (0.7-1.3) Estimated GFR (Cockcroft-Gault) 52.6 Glucose Level 284 mg/dL (70-99) Calcium Level 8.2 mg/dL (8.5-10.1) Test 08/26/19 07:55 Glucose (Fingerstick) 249 mg/dL (70-99) Objective: Assessment: Fever source likely lower extremity cellulitis Cellulitis of lower extremities bilaterally., Cultures Proteus and gram- negative montrell 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 AUGMENTIN AND ERYTHROMYCIN ALLERGY. Tolerating Rocephin well Acute kidney injury. Atrial fibrillation. Generalized weakness. Obesity. Urinary incontinence COVID negative Plan: Plan of Care Change Rocephin to cefepime UA and urine culture Blood culture s/p Vanco and Levaquin Local wound care as directed f/u cults and lab Maintain aspiration precautions CHON WISDOM MD Aug 26, 2019 10:30
--- NOTE | 2019-08-26 10:54 | NUR ---
ERIC following. Reviewed chart and spoke with RN. Pt remains on room air and IV Rocephin. Pt is COVID negative. PT/OT evaluation remains pending. Coordinating care with Musa at [facility], , (fax). ERIC awaiting answer from Musa with [facility] for acceptance of pt. ERIC to Continue following. Addendum: 08/26/19 at 1307 by INES REYES ERIC called therapy department to request that they see this patient today as PT evaluation is needed to determine if Musa can take pt at [facility] or if referrals need to be sent for SNU placement. Pt is COVID negative. Addendum: 08/26/19 at 1655 by INES REYES ERIC still waiting on PT/PT evaluation to determine acute rehab vs SNU. ERIC called therapy department again to request pt be seen today. ERIC called RN to request PT/OT orders instead of rehab screen.
[2019-08-26 11:00] VITALS: BP 149/66
--- NOTE | 2019-08-26 11:22 | PDOC ---
PROGRESS NOTES Chief Complaint Chief Complaint A/P: Mild cellulitis of lower extremities bilaterally. 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 Acute renal failure due to vasomotor nephropathy Atrial fibrillation chads vas score of greater than 4 currently on Xarelto Troponinemia Severe malnutrition Debilitation Morbid obesity Generalized weakness. History of Present Illness History of Present Illness Mr Villalobos is an 84-year-old male, with past medical history of CAD, CHF, diabetes type 2, A. fib, who presents to the ED with generalized weakness for the last 2 weeks and is progressively gotten worse. Patient states that his weakness is mainly is is in his lower extremities and he does receive wound care for both of his legs due to venous insufficiency. Patient does suffer multiple wounds and possibly fungal infection that is also being treated by wound care. In the last couple days patient was not able to support his own weight and decided that he needed to be brought in. Patient resides at [facility] and feels that the care at [facility] is an adequate and would like to switch to a different location. Ultimately he would like to go home with home health and also receive physical therapy. Patient was tested negative for COVID recently patient does normally go to the [facility] for his [facility] care. Denies fevers, shortness of breath, chest pain, abdominal pain, diarrhea, bloody stools, hematuria. 08/24: Afebrile. He is worried about the time he and his are arrested and spent 3 days in skilled nursing. He is confused he knows he is confused. Has been urinating on himself and his legs and buttocks are moist. Patient febrile today, 100.8 F. Mcknight catheter attempted to pass but is unable to patient does not wish for this. Barrier cream in place. Is excoriated on his buttocks. No shortness of breath or chest pain. COVID-19 initial test negative. Vitals Vitals Vital Signs Date Time Temp Pulse Resp B/P (MAP) Pulse Ox O2 Delivery O2 Flow Rate FiO2 08/26/19 09:40 81 190/84 08/26/19 08:30 Room Air 08/26/19 07:10 98.3 17 93 98.3 Physical Exam Physical Exam GENERAL: The patient is propped up in bed, alert, in no apparent distress. HEENT: Normal conjunctivae. Oropharynx pink and moist, no thrush. NECK: Supple. LUNGS: Clear to auscultation. No accessory muscle use. HEART: S1, S2. ABDOMEN: Obese, soft, nontender with bowel sounds present. Mcknight in place EXTREMITIES: Chronic venous dermatitis with mild erythema and several ulcerations and weeping. No cyanosis. SKIN: Warm to touch. No signs of rash. NEUROLOGIC: Alert and answering questions appropriately, though a poor historian. General: mild distress Heart: Regular rate Abdomen: Normal bowel sounds Labs LABS Laboratory Tests Test 08/25/19 12:57 08/25/19 18:10 08/25/19 21:53 08/26/19 03:40 Glucose (Fingerstick) 253 mg/dL (70-99) 303 mg/dL (70-99) 301 mg/dL (70-99) Sodium Level 138 mmol/L (136-145) Potassium Level 4.4 mmol/L (3.5-5.1) Chloride Level 104 mmol/L (98-107) Carbon Dioxide Level 23 mmol/L (21-32) Anion Gap 11 (6-14) Blood Urea Nitrogen 29 mg/dL (8-26) Creatinine 1.3 mg/dL (0.7-1.3) Estimated GFR (Cockcroft-Gault) 52.6 Glucose Level 284 mg/dL (70-99) Calcium Level 8.2 mg/dL (8.5-10.1) Test 08/26/19 07:55 Glucose (Fingerstick) 249 mg/dL (70-99) Assessment and Plan Assessmemt and Plan Problems Medical Problems: (1) Cellulitis Status: Acute (2) Troponin level elevated Status: Acute Comment Review of Relevant I have reviewed the following items rayshawn (where applicable) has been applied. Labs Laboratory Tests Test 08/24/19 16:04 08/24/19 19:58 08/25/19 08:30 08/25/19 09:18 Glucose (Fingerstick) 258 mg/dL (70-99) 223 mg/dL (70-99) 214 mg/dL (70-99) White Blood Count 7.1 x10^3/uL (4.0-11.0) Red Blood Count 2.81 x10^6/uL (4.30-5.70) Hemoglobin 8.1 g/dL (13.0-17.5) Hematocrit 24.5 % (39.0-53.0) Mean Corpuscular Volume 87 fL (79-100) Mean Corpuscular Hemoglobin 29 pg (25-35) Mean Corpuscular Hemoglobin Concent 33 g/dL (31-37) Red Cell Distribution Width 15.4 % (11.5-14.5) Platelet Count 250 x10^3/uL (140-400) Neutrophils (%) (Auto) 79 % (31-73) Lymphocytes (%) (Auto) 10 % (24-48) Monocytes (%) (Auto) 10 % (0-9) Eosinophils (%) (Auto) 0 % (0-3) Basophils (%) (Auto) 1 % (0-3) Neutrophils # (Auto) 5.6 x10^3/uL (1.8-7.7) Lymphocytes # (Auto) 0.7 x10^3/uL (1.0-4.8) Monocytes # (Auto) 0.7 x10^3/uL (0.0-1.1) Eosinophils # (Auto) 0.0 x10^3/uL (0.0-0.7) Basophils # (Auto) 0.0 x10^3/uL (0.0-0.2) Sodium Level 141 mmol/L (136-145) Potassium Level 4.4 mmol/L (3.5-5.1) Chloride Level 107 mmol/L (98-107) Carbon Dioxide Level 24 mmol/L (21-32) Anion Gap 10 (6-14) Blood Urea Nitrogen 28 mg/dL (8-26) Creatinine 1.3 mg/dL (0.7-1.3) Estimated GFR (Cockcroft-Gault) 52.6 BUN/Creatinine Ratio 22 (6-20) Glucose Level 231 mg/dL (70-99) Calcium Level 8.2 mg/dL (8.5-10.1) Phosphorus Level 3.5 mg/dL (2.6-4.7) Magnesium Level 1.9 mg/dL (1.8-2.4) Total Bilirubin 0.4 mg/dL (0.2-1.0) Aspartate Amino Transf (AST/SGOT) 35 U/L (15-37) Alanine Aminotransferase (ALT/SGPT) 16 U/L (16-63) Alkaline Phosphatase 61 U/L (46-116) Total Protein 6.5 g/dL (6.4-8.2) Albumin 2.2 g/dL (3.4-5.0) Albumin/Globulin Ratio 0.5 (1.0-1.7) Test 08/25/19 12:57 08/25/19 18:10 08/25/19 21:53 08/26/19 03:40 Glucose (Fingerstick) 253 mg/dL (70-99) 303 mg/dL (70-99) 301 mg/dL (70-99) Sodium Level 138 mmol/L (136-145) Potassium Level 4.4 mmol/L (3.5-5.1) Chloride Level 104 mmol/L (98-107) Carbon Dioxide Level 23 mmol/L (21-32) Anion Gap 11 (6-14) Blood Urea Nitrogen 29 mg/dL (8-26) Creatinine 1.3 mg/dL (0.7-1.3) Estimated GFR (Cockcroft-Gault) 52.6 Glucose Level 284 mg/dL (70-99) Calcium Level 8.2 mg/dL (8.5-10.1) Test 08/26/19 07:55 Glucose (Fingerstick) 249 mg/dL (70-99) Laboratory Tests Test 08/25/19 12:57 08/25/19 18:10 08/25/19 21:53 08/26/19 03:40 Glucose (Fingerstick) 253 mg/dL (70-99) 303 mg/dL (70-99) 301 mg/dL (70-99) Sodium Level 138 mmol/L (136-145) Potassium Level 4.4 mmol/L (3.5-5.1) Chloride Level 104 mmol/L (98-107) Carbon Dioxide Level 23 mmol/L (21-32) Anion Gap 11 (6-14) Blood Urea Nitrogen 29 mg/dL (8-26) Creatinine 1.3 mg/dL (0.7-1.3) Estimated GFR (Cockcroft-Gault) 52.6 Glucose Level 284 mg/dL (70-99) Calcium Level 8.2 mg/dL (8.5-10.1) Test 08/26/19 07:55 Glucose (Fingerstick) 249 mg/dL (70-99) Microbiology 08/23/19 Blood Culture - Preliminary, Resulted NO GROWTH AFTER 2 DAYS 08/23/19 Gram Stain - Final, Resulted 08/23/19 Aerobic Culture - Preliminary, Resulted Medications Current Medications Vancomycin HCl (Vanco Per Pharmacy) 1 each PRN DAILY PRN MC SEE COMMENTS Last administered on 08/24/19at 02:07; Start 08/23/19 at 20:30; Stop 08/24/19 at 11:21; Status DC Levofloxacin/ Dextrose (Levaquin Per Pharmacy) 1 each PRN DAILY PRN MC SEE COMMENTS; Start 08/23/19 at 20:30; Status Cancel Sodium Chloride 500 ml @ 500 mls/hr 1X ONCE IV Last administered on 08/23/19at 21:28; Start 08/23/19 at 20:30; Stop 08/23/19 at 21:29; Status DC Levofloxacin/ Dextrose 150 ml @ 100 mls/hr 1X ONCE IV Last administered on 08/23/19at 21:28; Start 08/23/19 at 21:00; Stop 08/23/19 at 22:29; Status DC Vancomycin HCl 2 gm/Sodium Chloride 500 ml @ 250 mls/hr 1X ONCE IV Last administered on 08/23/19at 22:00; Start 08/23/19 at 22:00; Stop 08/23/19 at 23:59; Status DC Rivaroxaban (Xarelto) 15 mg 1X ONCE PO Last administered on 08/23/19at 22:48; Start 08/23/19 at 22:00; Stop 08/23/19 at 22:01; Status DC Cefepime HCl (Maxipime) 1 gm 1X ONCE IVP Last administered on 08/23/19at 22:48; Start 08/23/19 at 22:30; Stop 08/23/19 at 22:31; Status DC Levofloxacin/ Dextrose 50 ml @ 50 mls/hr Q24H IV ; Start 08/24/19 at 21:00; Stop 08/24/19 at 11:32; Status DC Vancomycin HCl 1.5 gm/Sodium Chloride 500 ml @ 250 mls/hr Q24H IV ; Start 08/24/19 at 22:00; Stop 08/24/19 at 11:20; Status DC Vancomycin HCl (Vancomycin Trough Level) 1 each 1X ONCE MC ; Start 08/25/19 at 21:30; Stop 08/25/19 at 21:31; Status Cancel Acetaminophen/ Hydrocodone Bitart (Lortab 5/325) 1 tab PRN Q4HRS PRN PO MODERATE PAIN Last administered on 08/26/19 01:36; Start 08/24/19 at 10:00 Ceftriaxone Sodium (Rocephin) 1 gm Q24H IVP Last administered on 08/25/19at 12:51; Start 08/24/19 at 12:00 Bisacodyl (Dulcolax Tab) 5 mg PRN TID PRN PO CONSTIPATION 1ST CHOICE; Start 08/24/19 at 12:15 Cetirizine HCl (ZyrTEC) 10 mg DAILY PO Last administered on 08/26/19 09:39; Start 08/24/19 at 13:00 Furosemide (Lasix) 20 mg DAILY PO Last administered on 08/26/19 09:40; Start 08/24/19 at 13:00 Magnesium Hydroxide (Milk Of Magnesia) 400 mg PRN DAILY PRN PO CONSTIPATION; Start 08/24/19 at 12:15; Stop 08/24/19 at 12:18; Status DC Metoprolol Tartrate (Lopressor) 50 mg BID PO Last administered on 08/26/19at 09:40; Start 08/24/19 at 21:00 Polyethylene Glycol (miraLAX PACKET) 17 gm PRN DAILY PRN PO CONSTIPATION 2ND CHOICE; Start 08/24/19 at 12:15 Gabapentin (Neurontin) 600 mg BID PO Last administered on 08/26/19 09:39; Start 08/24/19 at 21:00 Rivaroxaban (Xarelto) 20 mg DAILY16 PO Last administered on 08/25/19 18:06; Start 08/24/19 at 16:00 Magnesium Hydroxide (Milk Of Magnesia) 2,400 mg PRN DAILY PRN PO CONSTIPATION; Start 08/24/19 at 12:18 Info (Anti-Coagulation Monitoring By Pharmacy) 1 each PRN DAILY PRN MC SEE COMMENTS Last administered on 08/24/19at 15:12; Start 08/24/19 at 12:30 Insulin Human Lispro (HumaLOG) 0-7 UNITS TIDWMEALS SQ Last administered on 08/26/19at 09:37; Start 08/24/19 at 13:00 Dextrose (Dextrose 50%-Water Syringe) 12.5 gm PRN Q15MIN PRN IV SEE COMMENTS; Start 08/24/19 at 12:30 Insulin Glargine (Lantus Syringe) 37 unit QHS SQ Last administered on 08/25/19at 22:05; Start 08/24/19 at 21:00 Insulin Glargine (Lantus Syringe) 35 unit DAILY08 SQ ; Start 08/25/19 at 08:00; Stop 08/24/19 at 12:38; Status DC Lactobacillus Rhamnosus (Culturelle) 1 cap BID PO Last administered on 08/26/19at 09:39; Start 08/25/19 at 21:00 Zinc Oxide (Zinc Oxide 20% Topical) 1 agata TID PRN TP SKIN PROTECTION; Start 08/25/19 at 20:00 Active Scripts Active Clindamycin Hcl 300 Mg Capsule 1 Cap PO TID Reported Spironolactone 25 Mg Tablet 1 Tab PO DAILY Silvadene (Silver Sulfadiazine) 20 Gm Cream..g. 1 Agata TP DAILY 7 Days apply to affected area(s) Xarelto (Rivaroxaban) 20 Mg Tablet 1 Tab PO DAILY 30 Days with food Nystatin 15 Gm Cream..g. 1 Agata TP BID Miralax (Polyethylene Glycol 3350) 17 Gm Powd.pack 1 Packet PO DAILY PRN 2 Days dissolve in water Milk Of Magnesia (Magnesium Hydroxide) 400 Mg/5 Ml Oral.susp 400 Mg PO DAILY PRN Anti-Fungal Cream (Miconazole Nitrate) 113 Gm Cream..g. 1 Agata TP BID 14 Days Metoprolol Tartrate 50 Mg Tablet 1 Tab PO BID Bengay Ultra Strength (Menthol) 1 Each Adh..patch 1 Each TP Q8HRS Losartan Potassium 100 Mg Tablet 100 Mg PO DAILY Lantus (Insulin Glargine,Hum.rec.anlog) 100 Unit/1 Ml Vial 35 Unit SQ DAILY08 Lantus (Insulin Glargine,Hum.rec.anlog) 100 Unit/1 Ml Vial 37 Unit SQ QHS Insulin Aspart 100 Unit/1 Ml Vial 25 Unit SQ TIDAC Gabapentin 600 Mg Tablet 600 Mg PO BID Furosemide 20 Mg Tablet 1 Tab PO DAILY Fluconazole 200 Mg Tablet 1 Tab PO QTU Fish Oil 1,000 Mg Softgel ([place]-3 Fatty Acids/Fish Oil) 1 Each Capsule 1 Cap PO BID 30 Days WITH MEALS Cetirizine Hcl 10 Mg Tablet 1 Tab PO DAILY Dulcolax (Bisacodyl) 5 Mg Tablet. 1 Tab PO TID PRN 1 Days Vitals/I & O Vital Sign - Last 24 Hours 08/25/19 08/25/19 08/25/19 08/25/19 15:00 19:15 20:00 22:03 Temp 98.2 99.2 98.2 99.2 Pulse 69 100 100 Resp 20 16 B/P (MAP) 117/54 (75) 108/55 (72) 108/55 Pulse Ox 96 96 O2 Delivery Room Air Room Air Room Air 08/25/19 08/26/19 08/26/19 08/26/19 23:00 01:36 02:36 03:00 Temp 99.8 100.8 99.8 100.8 Pulse 79 76 Resp 18 18 16 20 B/P (MAP) 143/74 (97) 111/87 (95) Pulse Ox 96 96 92 O2 Delivery Room Air Room Air Room Air 08/26/19 08/26/19 08/26/19 07:10 08:30 09:40 Temp 98.3 98.3 Pulse 81 81 Resp 17 B/P (MAP) 190/84 (119) 190/84 Pulse Ox 93 O2 Delivery Room Air Room Air Intake and Output 08/25/19 08/25/19 08/26/19 15:00 23:00 07:00 Intake Total 480 ml 0 ml Output Total 200 ml Balance 280 ml 0 ml Justicifation of Admission Dx: Justifications for Admission: Justification of Admission Dx: Yes LARA MERAZ MD Aug 26, 2019 11:22
--- NOTE | 2019-08-26 11:45 | PDOC ---
Renal-Progress Notes Subjective Notes Notes NO NEW COMPLAINTS History of Present Illness Hx of present illness STABLE Vitals Vitals Vital Signs Date Time Temp Pulse Resp B/P (MAP) Pulse Ox O2 Delivery O2 Flow Rate FiO2 08/26/19 11:00 97.9 84 18 149/66 (93) 96 Room Air 97.9 Weight Weight [ ] I.O. Intake and Output Intake and Output 08/26/19 07:00 Intake Total 480 ml Output Total 200 ml Balance 280 ml Intake Oral 480 ml Output Urine Total 200 ml # Voids 4 Labs Labs Laboratory Tests Test 08/25/19 12:57 08/25/19 18:10 08/25/19 21:53 08/26/19 03:40 Glucose (Fingerstick) 253 mg/dL (70-99) 303 mg/dL (70-99) 301 mg/dL (70-99) Sodium Level 138 mmol/L (136-145) Potassium Level 4.4 mmol/L (3.5-5.1) Chloride Level 104 mmol/L (98-107) Carbon Dioxide Level 23 mmol/L (21-32) Anion Gap 11 (6-14) Blood Urea Nitrogen 29 mg/dL (8-26) Creatinine 1.3 mg/dL (0.7-1.3) Estimated GFR (Cockcroft-Gault) 52.6 Glucose Level 284 mg/dL (70-99) Calcium Level 8.2 mg/dL (8.5-10.1) Test 08/26/19 07:55 08/26/19 11:37 Glucose (Fingerstick) 249 mg/dL (70-99) 269 mg/dL (70-99) Micro Micro Microbiology 08/23/19 Blood Culture - Preliminary, Resulted NO GROWTH AFTER 2 DAYS 08/23/19 Gram Stain - Final, Resulted 08/23/19 Aerobic Culture - Preliminary, Resulted Review of Systems Constitutional: yes: other (CONFUSED) Physical Exam General Appearance: no apparent distress Skin: warm Respiratory: bilateral CTA Heart: S1S2 Extremities: pulses present, atrophy Neurology: alert Assessment Assessment IMP RUSS-RESOLVED CKD STAGE 3-CR STABLE AT 1.3 LE CELLULITIS PLAN RULE OUT COVID 19 ANTIBIOTICS LABS IN AM BRICE MCCLENDON MD Aug 26, 2019 11:45
[2019-08-26] MEDS: CEFEPIME HCL IV Push 1 GM VIAL. IVP SCH ×2 (12:35→21:56)
[2019-08-26 15:00] LABS: BILIRUBIN,URINE NEGATIVE (NEG); CLARITY,URINE CLEAR; COLOR,URINE YELLOW; NITRITE,URINE NEGATIVE (NEG); PH,URINE 5.5 (<5.0-8.0); PROTEIN,URINE NEGATIVE (NEG-TRACE)
[2019-08-26 15:13] LABS: RBC,URINE 20-40 /HPF (0-2); SQUAMOUS EPITHELIAL CELL,UR FEW /LPF; WBC,URINE 20-40 /HPF (0-4)
[2019-08-26 15:15] LABS: BACTERIA,URINE FEW /HPF (0-FEW); HYALINE CASTS, URINE OCCASIONAL /HPF
[2019-08-26] MEDS: RIVAROXABAN 10 MG TABLET. PO SCH (15:20)
[2019-08-26 15:38] VITALS: BP 152/63
--- NOTE | 2019-08-26 16:46 | NUR ---
Wound/Ostomy Care Wound Type/Assessment: BLE cellulitis/VLUs, scrotum with skin tears. All wounds cleansed with wound wash. Groin is red but not open, nystatin applied Treatment Recommendations/Plan: Lotion applied to periwound on BLE, wounds covered with xeroform, abd and kerlix, change every other day d/t drainage. A&D ointment applied to scrotum bid. Education provided: pt was educated on pressure relief using purple wedge and pillows to elevate legs. Reinforcement needed, pt states that he has had this wounds for over a year so there's no need to elevate them now. Offloading surface/device: purple wedge, pillow, P500 bed Discharge Recommendations for dressings: same as above
[2019-08-26 19:00] VITALS: BP 120/60
[2019-08-26] MEDS: INSULIN GLARGINE SYRINGE. SQ SCH (22:07)
[2019-08-26 23:00] VITALS: BP 137/67
[2019-08-27 03:00] VITALS: BP 125/60
[2019-08-27 07:00] VITALS: BP 151/73
--- NOTE | 2019-08-27 08:26 | PDOC ---
PROGRESS NOTES Chief Complaint Chief Complaint A/P: Mild cellulitis of lower extremities bilaterally. 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 Acute renal failure due to vasomotor nephropathy Atrial fibrillation chads vas score of greater than 4 currently on Xarelto Troponinemia Severe malnutrition Debilitation Morbid obesity Generalized weakness. History of Present Illness History of Present Illness Mr Villalobos is an 84-year-old male, with past medical history of CAD, CHF, diabetes type 2, A. fib, who presents to the ED with generalized weakness for the last 2 weeks and is progressively gotten worse. Patient states that his weakness is mainly is is in his lower extremities and he does receive wound care for both of his legs due to venous insufficiency. Patient does suffer multiple wounds and possibly fungal infection that is also being treated by wound care. In the last couple days patient was not able to support his own weight and decided that he needed to be brought in. Patient resides at [facility] and feels that the care at [facility] is an adequate and would like to switch to a different location. Ultimately he would like to go home with home health and also receive physical therapy. Patient was tested negative for COVID recently patient does normally go to the [place] for his wound care. Denies fevers, shortness of breath, chest pain, abdominal pain, diarrhea, bloody stools, hematuria. 08/24: Afebrile. He is worried about the time he and his are arrested and spent 3 days in snf. He is confused he knows he is confused. Has been urinating on himself and his legs and buttocks are moist. 08/25: Patient febrile today, 100.8 F. Mcknight catheter attempted to pass but is unable to patient does not wish for this. Barrier cream in place. Is excoriated on his buttocks. No shortness of breath or chest pain. COVID-19 initial test negative. Afebrile. He is uncomfortable with his leg straight. Wounds improved. He is still talking about being incarcerated, and confused. Wound culture with Pseudomonas, staph aureus, Proteus Vitals Vitals Vital Signs Date Time Temp Pulse Resp B/P (MAP) Pulse Ox O2 Delivery O2 Flow Rate FiO2 08/27/19 03:00 98.0 79 18 125/60 (81) 96 Room Air 98.0 Physical Exam Physical Exam GENERAL: The patient is propped up in bed, alert, in no apparent distress. HEENT: Normal conjunctivae. Oropharynx pink and moist, no thrush. NECK: Supple. LUNGS: Clear to auscultation. No accessory muscle use. HEART: S1, S2. ABDOMEN: Obese, soft, nontender with bowel sounds present. Mcknight in place EXTREMITIES: Chronic venous dermatitis with mild erythema and several ulcerations and weeping. No cyanosis. SKIN: Warm to touch. No signs of rash. NEUROLOGIC: Alert and answering questions appropriately, though a poor historian. General: mild distress Heart: Regular rate Abdomen: Normal bowel sounds Labs LABS Laboratory Tests Test 08/26/19 11:37 08/26/19 14:32 08/26/19 16:38 08/26/19 20:36 Glucose (Fingerstick) 269 mg/dL (70-99) 260 mg/dL (70-99) 215 mg/dL (70-99) Urine Collection Type Unknown Urine Color Yellow Urine Clarity Clear Urine pH 5.5 (<5.0-8.0) Urine Specific [place] 1.020 (1.000-1.030) Urine Protein Negative mg/dL (NEG-TRACE) Urine Glucose (UA) Negative mg/dL (NEG) Urine Ketones (Stick) Negative mg/dL (NEG) Urine Blood Large (NEG) Urine Nitrite Negative (NEG) Urine Bilirubin Negative (NEG) Urine Urobilinogen Dipstick 1.0 mg/dL (0.2 mg/dL) Urine Leukocyte Esterase Moderate (NEG) Urine RBC 20-40 /HPF (0-2) Urine WBC 20-40 /HPF (0-4) Urine Squamous Epithelial Cells Few /LPF Urine Bacteria Few /HPF (0-FEW) Urine Hyaline Casts Occasional /HPF Urine Mucus Marked /LPF Test 08/27/19 08:11 Glucose (Fingerstick) 212 mg/dL (70-99) Assessment and Plan Assessmemt and Plan Problems Medical Problems: (1) Cellulitis Status: Acute (2) Troponin level elevated Status: Acute Comment Review of Relevant I have reviewed the following items rayshawn (where applicable) has been applied. Labs Laboratory Tests Test 08/25/19 08:30 08/25/19 09:18 08/25/19 12:57 08/25/19 18:10 White Blood Count 7.1 x10^3/uL (4.0-11.0) Red Blood Count 2.81 x10^6/uL (4.30-5.70) Hemoglobin 8.1 g/dL (13.0-17.5) Hematocrit 24.5 % (39.0-53.0) Mean Corpuscular Volume 87 fL (79-100) Mean Corpuscular Hemoglobin 29 pg (25-35) Mean Corpuscular Hemoglobin Concent 33 g/dL (31-37) Red Cell Distribution Width 15.4 % (11.5-14.5) Platelet Count 250 x10^3/uL (140-400) Neutrophils (%) (Auto) 79 % (31-73) Lymphocytes (%) (Auto) 10 % (24-48) Monocytes (%) (Auto) 10 % (0-9) Eosinophils (%) (Auto) 0 % (0-3) Basophils (%) (Auto) 1 % (0-3) Neutrophils # (Auto) 5.6 x10^3/uL (1.8-7.7) Lymphocytes # (Auto) 0.7 x10^3/uL (1.0-4.8) Monocytes # (Auto) 0.7 x10^3/uL (0.0-1.1) Eosinophils # (Auto) 0.0 x10^3/uL (0.0-0.7) Basophils # (Auto) 0.0 x10^3/uL (0.0-0.2) Sodium Level 141 mmol/L (136-145) Potassium Level 4.4 mmol/L (3.5-5.1) Chloride Level 107 mmol/L (98-107) Carbon Dioxide Level 24 mmol/L (21-32) Anion Gap 10 (6-14) Blood Urea Nitrogen 28 mg/dL (8-26) Creatinine 1.3 mg/dL (0.7-1.3) Estimated GFR (Cockcroft-Gault) 52.6 BUN/Creatinine Ratio 22 (6-20) Glucose Level 231 mg/dL (70-99) Calcium Level 8.2 mg/dL (8.5-10.1) Phosphorus Level 3.5 mg/dL (2.6-4.7) Magnesium Level 1.9 mg/dL (1.8-2.4) Total Bilirubin 0.4 mg/dL (0.2-1.0) Aspartate Amino Transf (AST/SGOT) 35 U/L (15-37) Alanine Aminotransferase (ALT/SGPT) 16 U/L (16-63) Alkaline Phosphatase 61 U/L (46-116) Total Protein 6.5 g/dL (6.4-8.2) Albumin 2.2 g/dL (3.4-5.0) Albumin/Globulin Ratio 0.5 (1.0-1.7) Glucose (Fingerstick) 214 mg/dL (70-99) 253 mg/dL (70-99) 303 mg/dL (70-99) Test 08/25/19 21:53 08/26/19 03:40 08/26/19 07:55 08/26/19 11:37 Glucose (Fingerstick) 301 mg/dL (70-99) 249 mg/dL (70-99) 269 mg/dL (70-99) Sodium Level 138 mmol/L (136-145) Potassium Level 4.4 mmol/L (3.5-5.1) Chloride Level 104 mmol/L (98-107) Carbon Dioxide Level 23 mmol/L (21-32) Anion Gap 11 (6-14) Blood Urea Nitrogen 29 mg/dL (8-26) Creatinine 1.3 mg/dL (0.7-1.3) Estimated GFR (Cockcroft-Gault) 52.6 Glucose Level 284 mg/dL (70-99) Calcium Level 8.2 mg/dL (8.5-10.1) Test 08/26/19 14:32 08/26/19 16:38 08/26/19 20:36 08/27/19 08:11 Urine Collection Type Unknown Urine Color Yellow Urine Clarity Clear Urine pH 5.5 (<5.0-8.0) Urine Specific [place] 1.020 (1.000-1.030) Urine Protein Negative mg/dL (NEG-TRACE) Urine Glucose (UA) Negative mg/dL (NEG) Urine Ketones (Stick) Negative mg/dL (NEG) Urine Blood Large (NEG) Urine Nitrite Negative (NEG) Urine Bilirubin Negative (NEG) Urine Urobilinogen Dipstick 1.0 mg/dL (0.2 mg/dL) Urine Leukocyte Esterase Moderate (NEG) Urine RBC 20-40 /HPF (0-2) Urine WBC 20-40 /HPF (0-4) Urine Squamous Epithelial Cells Few /LPF Urine Bacteria Few /HPF (0-FEW) Urine Hyaline Casts Occasional /HPF Urine Mucus Marked /LPF Glucose (Fingerstick) 260 mg/dL (70-99) 215 mg/dL (70-99) 212 mg/dL (70-99) Laboratory Tests Test 08/26/19 11:37 08/26/19 14:32 08/26/19 16:38 08/26/19 20:36 Glucose (Fingerstick) 269 mg/dL (70-99) 260 mg/dL (70-99) 215 mg/dL (70-99) Urine Collection Type Unknown Urine Color Yellow Urine Clarity Clear Urine pH 5.5 (<5.0-8.0) Urine Specific [place] 1.020 (1.000-1.030) Urine Protein Negative mg/dL (NEG-TRACE) Urine Glucose (UA) Negative mg/dL (NEG) Urine Ketones (Stick) Negative mg/dL (NEG) Urine Blood Large (NEG) Urine Nitrite Negative (NEG) Urine Bilirubin Negative (NEG) Urine Urobilinogen Dipstick 1.0 mg/dL (0.2 mg/dL) Urine Leukocyte Esterase Moderate (NEG) Urine RBC 20-40 /HPF (0-2) Urine WBC 20-40 /HPF (0-4) Urine Squamous Epithelial Cells Few /LPF Urine Bacteria Few /HPF (0-FEW) Urine Hyaline Casts Occasional /HPF Urine Mucus Marked /LPF Test 08/27/19 08:11 Glucose (Fingerstick) 212 mg/dL (70-99) Microbiology 08/23/19 Blood Culture - Preliminary, Resulted NO GROWTH AFTER 3 DAYS 08/23/19 Gram Stain - Final, Resulted 08/23/19 Aerobic Culture - Preliminary, Resulted Medications Current Medications Vancomycin HCl (Vanco Per Pharmacy) 1 each PRN DAILY PRN MC SEE COMMENTS Last administered on 08/24/19at 02:07; Start 08/23/19 at 20:30; Stop 08/24/19 at 11:21; Status DC Levofloxacin/ Dextrose (Levaquin Per Pharmacy) 1 each PRN DAILY PRN MC SEE COMMENTS; Start 08/23/19 at 20:30; Status Cancel Sodium Chloride 500 ml @ 500 mls/hr 1X ONCE IV Last administered on 08/23/19at 21:28; Start 08/23/19 at 20:30; Stop 08/23/19 at 21:29; Status DC Levofloxacin/ Dextrose 150 ml @ 100 mls/hr 1X ONCE IV Last administered on 08/23/19at 21:28; Start 08/23/19 at 21:00; Stop 08/23/19 at 22:29; Status DC Vancomycin HCl 2 gm/Sodium Chloride 500 ml @ 250 mls/hr 1X ONCE IV Last administered on 08/23/19at 22:00; Start 08/23/19 at 22:00; Stop 08/23/19 at 23:59; Status DC Rivaroxaban (Xarelto) 15 mg 1X ONCE PO Last administered on 08/23/19at 22:48; Start 08/23/19 at 22:00; Stop 08/23/19 at 22:01; Status DC Cefepime HCl (Maxipime) 1 gm 1X ONCE IVP Last administered on 08/23/19at 22:48; Start 08/23/19 at 22:30; Stop 08/23/19 at 22:31; Status DC Levofloxacin/ Dextrose 50 ml @ 50 mls/hr Q24H IV ; Start 08/24/19 at 21:00; Stop 08/24/19 at 11:32; Status DC Vancomycin HCl 1.5 gm/Sodium Chloride 500 ml @ 250 mls/hr Q24H IV ; Start 08/24/19 at 22:00; Stop 08/24/19 at 11:20; Status DC Vancomycin HCl (Vancomycin Trough Level) 1 each 1X ONCE MC ; Start 08/25/19 at 21:30; Stop 08/25/19 at 21:31; Status Cancel Acetaminophen/ Hydrocodone Bitart (Lortab 5/325) 1 tab PRN Q4HRS PRN PO MODERATE PAIN Last administered on 08/26/19at 15:17; Start 08/24/19 at 10:00 Ceftriaxone Sodium (Rocephin) 1 gm Q24H IVP Last administered on 08/25/19at 12:51; Start 08/24/19 at 12:00; Stop 08/26/19 at 11:43; Status DC Bisacodyl (Dulcolax Tab) 5 mg PRN TID PRN PO CONSTIPATION 1ST CHOICE; Start 08/24/19 at 12:15 Cetirizine HCl (ZyrTEC) 10 mg DAILY PO Last administered on 08/26/19at 09:39; Start 08/24/19 at 13:00 Furosemide (Lasix) 20 mg DAILY PO Last administered on 08/26/19at 09:40; Start 08/24/19 at 13:00 Magnesium Hydroxide (Milk Of Magnesia) 400 mg PRN DAILY PRN PO CONSTIPATION; Start 08/24/19 at 12:15; Stop 08/24/19 at 12:18; Status DC Metoprolol Tartrate (Lopressor) 50 mg BID PO Last administered on 08/26/19at 21:53; Start 08/24/19 at 21:00 Polyethylene Glycol (miraLAX PACKET) 17 gm PRN DAILY PRN PO CONSTIPATION 2ND CHOICE; Start 08/24/19 at 12:15 Gabapentin (Neurontin) 600 mg BID PO Last administered on 08/26/19at 21:53; Start 08/24/19 at 21:00 Rivaroxaban (Xarelto) 20 mg DAILY16 PO Last administered on 08/26/19at 15:20; Start 08/24/19 at 16:00 Magnesium Hydroxide (Milk Of Magnesia) 2,400 mg PRN DAILY PRN PO CONSTIPATION; Start 08/24/19 at 12:18 Info (Anti-Coagulation Monitoring By Pharmacy) 1 each PRN DAILY PRN MC SEE COMMENTS Last administered on 08/24/19at 15:12; Start 08/24/19 at 12:30 Insulin Human Lispro (HumaLOG) 0-7 UNITS TIDWMEALS SQ Last administered on 08/26/19at 17:22; Start 08/24/19 at 13:00 Dextrose (Dextrose 50%-Water Syringe) 12.5 gm PRN Q15MIN PRN IV SEE COMMENTS; Start 08/24/19 at 12:30 Insulin Glargine (Lantus Syringe) 37 unit QHS SQ Last administered on 08/26/19at 22:07; Start 08/24/19 at 21:00 Insulin Glargine (Lantus Syringe) 35 unit DAILY08 SQ ; Start 08/25/19 at 08:00; Stop 08/24/19 at 12:38; Status DC Lactobacillus Rhamnosus (Culturelle) 1 cap BID PO Last administered on 08/26/19at 21:55; Start 08/25/19 at 21:00 Zinc Oxide (Zinc Oxide 20% Topical) 1 agata TID PRN TP SKIN PROTECTION; Start 08/25/19 at 20:00 Cefepime HCl (Maxipime) 1 gm Q12HR IVP Last administered on 08/26/19at 21:56; Start 08/26/19 at 13:00 Active Scripts Active Clindamycin Hcl 300 Mg Capsule 1 Cap PO TID Reported Spironolactone 25 Mg Tablet 1 Tab PO DAILY Silvadene (Silver Sulfadiazine) 20 Gm Cream..g. 1 Agata TP DAILY 7 Days apply to affected area(s) Xarelto (Rivaroxaban) 20 Mg Tablet 1 Tab PO DAILY 30 Days with food Nystatin 15 Gm Cream..g. 1 Agata TP BID Miralax (Polyethylene Glycol 3350) 17 Gm Powd.pack 1 Packet PO DAILY PRN 2 Days dissolve in water Milk Of Magnesia (Magnesium Hydroxide) 400 Mg/5 Ml Oral.susp 400 Mg PO DAILY PRN Anti-Fungal Cream (Miconazole Nitrate) 113 Gm Cream..g. 1 Agata TP BID 14 Days Metoprolol Tartrate 50 Mg Tablet 1 Tab PO BID [place] Ultra Strength (Menthol) 1 Each Adh..patch 1 Each TP Q8HRS Losartan Potassium 100 Mg Tablet 100 Mg PO DAILY Lantus (Insulin Glargine,Hum.rec.anlog) 100 Unit/1 Ml Vial 35 Unit SQ DAILY08 Lantus (Insulin Glargine,Hum.rec.anlog) 100 Unit/1 Ml Vial 37 Unit SQ QHS Insulin Aspart 100 Unit/1 Ml Vial 25 Unit SQ TIDAC Gabapentin 600 Mg Tablet 600 Mg PO BID Furosemide 20 Mg Tablet 1 Tab PO DAILY Fluconazole 200 Mg Tablet 1 Tab PO QTU Fish Oil 1,000 Mg Softgel ([place]-3 Fatty Acids/Fish Oil) 1 Each Capsule 1 Cap PO BID 30 Days WITH MEALS Cetirizine Hcl 10 Mg Tablet 1 Tab PO DAILY Dulcolax (Bisacodyl) 5 Mg Tablet.dr 1 Tab PO TID PRN 1 Days Vitals/I & O Vital Sign - Last 24 Hours 08/26/19 08/26/19 08/26/19 08/26/19 08:30 09:40 11:00 15:38 Temp 97.9 98.0 97.9 98.0 Pulse 81 84 86 Resp 18 18 B/P (MAP) 190/84 149/66 (93) 152/63 (92) Pulse Ox 96 96 O2 Delivery Room Air Room Air Room Air 08/26/19 08/26/19 08/26/19 08/26/19 19:00 20:00 21:53 23:00 Temp 97.6 97.9 97.6 97.9 Pulse 81 86 72 Resp 18 18 B/P (MAP) 120/60 (80) 152/63 137/67 (90) Pulse Ox 95 94 O2 Delivery Room Air Room Air Room Air 08/27/19 03:00 Temp 98.0 98.0 Pulse 79 Resp 18 B/P (MAP) 125/60 (81) Pulse Ox 96 O2 Delivery Room Air Intake and Output 08/26/19 08/26/19 08/27/19 15:00 23:00 07:00 Intake Total 120 ml 200 ml 0 ml Output Total 300 ml 900 ml Balance 120 ml -100 ml -900 ml Justicifation of Admission Dx: Justifications for Admission: Justification of Admission Dx: Yes LARA MERAZ MD Aug 27, 2019 08:26
[2019-08-27] MEDS: LACTOBACILLUS RHAMNOSUS GG 1 CAPSULE. PO SCH ×2 (09:05→20:33)
[2019-08-27] MEDS: GABAPENTIN 300 MG CAPSULE. PO SCH ×2 (09:05→20:33)
[2019-08-27] MEDS: FUROSEMIDE 20 MG TABLET PO SCH (09:05)
[2019-08-27] MEDS: CEFEPIME HCL IV Push 1 GM VIAL. IVP SCH ×2 (09:05→20:33)
[2019-08-27] MEDS: METOPROLOL TART IMMED RELEASE 50 MG TABLET. PO SCH ×2 (09:05→20:33)
[2019-08-27] MEDS: INSULIN LISPRO 300 UNITS/3 ML VIAL. SQ SCH ×3 (09:15→17:13)
[2019-08-27] MEDS: CETIRIZINE HCL 10 MG TABLET. PO SCH (09:36)
[2019-08-27 11:00] VITALS: BP 111/62
--- NOTE | 2019-08-27 11:30 | PDOC ---
Renal-Progress Notes Subjective Notes Notes NONE History of Present Illness Hx of present illness NO CHANGE Vitals Vitals Vital Signs Date Time Temp Pulse Resp B/P (MAP) Pulse Ox O2 Delivery O2 Flow Rate FiO2 08/27/19 09:05 66 151/73 08/27/19 07:00 98.3 18 97 Room Air 98.3 Weight Weight [ ] I.O. Intake and Output Intake and Output 08/27/19 06:59 Intake Total 320 ml Output Total 1200 ml Balance -880 ml Intake Oral 320 ml Output Urine Total 1200 ml Labs Labs Laboratory Tests Test 08/26/19 11:37 08/26/19 14:32 08/26/19 16:38 08/26/19 20:36 Glucose (Fingerstick) 269 mg/dL (70-99) 260 mg/dL (70-99) 215 mg/dL (70-99) Urine Collection Type Unknown Urine Color Yellow Urine Clarity Clear Urine pH 5.5 (<5.0-8.0) Urine Specific [place] 1.020 (1.000-1.030) Urine Protein Negative mg/dL (NEG-TRACE) Urine Glucose (UA) Negative mg/dL (NEG) Urine Ketones (Stick) Negative mg/dL (NEG) Urine Blood Large (NEG) Urine Nitrite Negative (NEG) Urine Bilirubin Negative (NEG) Urine Urobilinogen Dipstick 1.0 mg/dL (0.2 mg/dL) Urine Leukocyte Esterase Moderate (NEG) Urine RBC 20-40 /HPF (0-2) Urine WBC 20-40 /HPF (0-4) Urine Squamous Epithelial Cells Few /LPF Urine Bacteria Few /HPF (0-FEW) Urine Hyaline Casts Occasional /HPF Urine Mucus Marked /LPF Test 08/27/19 08:11 08/27/19 11:25 Glucose (Fingerstick) 212 mg/dL (70-99) 231 mg/dL (70-99) Micro Micro Microbiology 08/23/19 Blood Culture - Preliminary, Resulted NO GROWTH AFTER 3 DAYS 08/23/19 Gram Stain - Final, Resulted 08/23/19 Aerobic Culture - Preliminary, Resulted Review of Systems Constitutional: yes: other (CONFUSED) Physical Exam General Appearance: no apparent distress Skin: warm Respiratory: bilateral CTA Heart: S1S2 Extremities: pulses present, atrophy Neurology: alert Assessment Assessment IMP RUSS-RESOLVED CKD STAGE 3-CR STABLE AT 1.3 LE CELLULITIS PLAN ANTIBIOTICS WILL SIGN OFF PLEASE CALL IF NEEDED BRICE MCCLENDON MD Aug 27, 2019 11:30
--- NOTE | 2019-08-27 12:19 | PDOC ---
CARDIO Progress Notes Date and Time Date of Service 08/27/19 Time of Evaluation 1110 Subjective Subjective: No Chest Pain, No shortness of breath, No Palpitations, Other (confused ) Vitals Vitals Vital Signs Date Time Temp Pulse Resp B/P (MAP) Pulse Ox O2 Delivery O2 Flow Rate FiO2 08/27/19 11:00 98.0 71 18 111/62 (78) 95 Room Air 98.0 Weight Weight [ ] Input and Output Intake and Output Intake and Output 08/27/19 07:00 Intake Total 320 ml Output Total 1200 ml Balance -880 ml Intake Oral 320 ml Output Urine Total 1200 ml Laboratory Labs Laboratory Tests Test 08/26/19 14:32 08/26/19 16:38 08/26/19 20:36 08/27/19 08:11 Urine Collection Type Unknown Urine Color Yellow Urine Clarity Clear Urine pH 5.5 (<5.0-8.0) Urine Specific [place] 1.020 (1.000-1.030) Urine Protein Negative mg/dL (NEG-TRACE) Urine Glucose (UA) Negative mg/dL (NEG) Urine Ketones (Stick) Negative mg/dL (NEG) Urine Blood Large (NEG) Urine Nitrite Negative (NEG) Urine Bilirubin Negative (NEG) Urine Urobilinogen Dipstick 1.0 mg/dL (0.2 mg/dL) Urine Leukocyte Esterase Moderate (NEG) Urine RBC 20-40 /HPF (0-2) Urine WBC 20-40 /HPF (0-4) Urine Squamous Epithelial Cells Few /LPF Urine Bacteria Few /HPF (0-FEW) Urine Hyaline Casts Occasional /HPF Urine Mucus Marked /LPF Glucose (Fingerstick) 260 mg/dL (70-99) 215 mg/dL (70-99) 212 mg/dL (70-99) Test 08/27/19 11:25 Glucose (Fingerstick) 231 mg/dL (70-99) Microbiology Micro Microbiology 08/23/19 Blood Culture - Preliminary, Resulted NO GROWTH AFTER 3 DAYS 08/23/19 Gram Stain - Final, Resulted 08/23/19 Aerobic Culture - Preliminary, Resulted Review of Systems Constitutional: yes: other (CONFUSED) Physical Exam HEENT: Neck Supple W Full Motion Chest: Symmetric LUNGS: Clear to Auscultation, Other (diminished ) Heart: RRR (not on tele.) Extremities: Other (trace bilateral LE edema. DRSG intact to bilateral LE) Neurology: alert, follow commands, confused Assessment Assessment 1. Generalized weakness, debilitation 2. Bilateral LE cellulitis, chronic venous stasis/ulcers Patient with mild anemia as well as renal insufficiency. 3. RUSS; improved 4. H/o CAD; details unknown 5. Mild trop elevation; peak 0.148. Most probably type II, demand ischemia secondary to above.. 6. Hypertension; controlled 7. Diabetes, II Recommendations Echo to assess LV systolic function Lipids ASA therapy Continue antibiotic therapy as per ID Consider outpatient ischemic evaluation Supportive care Justicifation of Admission Dx: Justifications for Admission: Justification of Admission Dx: Yes RAGHAVENDRA LYONS APRN Aug 27, 2019 12:19
--- NOTE | 2019-08-27 12:31 | PDOC ---
Infectious Disease Note Subjective: Subjective Pt says is tired and sleepy Denies nausea, vomiting, shortness of breath, diarrhea, abdominal pain, rash Otherwise as above Vital Signs: Vital Signs Vital Signs Date Time Temp Pulse Resp B/P (MAP) Pulse Ox O2 Delivery O2 Flow Rate FiO2 08/27/19 11:00 98.0 71 18 111/62 (78) 95 Room Air 98.0 Physical Exam: PHYSICAL EXAM GENERAL: The patient is propped up in bed, alert, in no apparent distress. HEENT: Normal conjunctivae. Oropharynx pink and moist, no thrush. NECK: Supple. LUNGS: Clear to auscultation. No accessory muscle use. HEART: S1, S2. ABDOMEN: Obese, soft, nontender with bowel sounds present. Mcknight in place EXTREMITIES: Chronic venous dermatitis with mild erythema and several ulcerations and weeping. No cyanosis. SKIN: Warm to touch. No signs of rash. NEUROLOGIC: Alert and answering questions appropriately, though a poor historian. Medications: Inpatient Meds: Current Medications Medications (Trade) Dose Ordered Sig/Harmeet Start Time Stop Time Status Last Admin Dose Admin Acetaminophen/ Hydrocodone Bitart (Lortab 5/325) 1 tab PRN Q4HRS PRN 08/24/19 10:00 08/26/19 15:17 1 TAB Aspirin (Ecotrin) 81 mg DAILYWBKFT 08/27/19 12:00 Bisacodyl (Dulcolax Tab) 5 mg PRN TID PRN 08/24/19 12:15 Cefepime HCl (Maxipime) 1 gm Q12HR 08/26/19 13:00 08/27/19 09:05 1 GM Ceftriaxone Sodium (Rocephin) 1 gm Q24H 08/24/19 12:00 08/26/19 11:43 DC 08/25/19 12:51 1 GM Cetirizine HCl (ZyrTEC) 10 mg DAILY 08/24/19 13:00 08/27/19 09:36 10 MG Dextrose (Dextrose 50%-Water Syringe) 12.5 gm PRN Q15MIN PRN 08/24/19 12:30 Furosemide (Lasix) 20 mg DAILY 08/24/19 13:00 08/27/19 09:05 20 MG Gabapentin (Neurontin) 600 mg BID 08/24/19 21:00 08/27/19 09:05 600 MG Info (Anti-Coagulation Monitoring By Pharmacy) 1 each PRN DAILY PRN 08/24/19 12:30 08/24/19 15:12 1 EACH Insulin Glargine (Lantus Syringe) 35 unit DAILY08 08/25/19 08:00 08/24/19 12:38 DC Insulin Human Lispro (HumaLOG) 0-7 UNITS TIDWMEALS 08/24/19 13:00 08/27/19 12:04 4 UNITS Lactobacillus Rhamnosus (Culturelle) 1 cap BID 08/25/19 21:00 08/27/19 09:05 1 CAP Levofloxacin/ Dextrose 50 ml @ 50 mls/hr Q24H 08/24/19 21:00 08/24/19 11:32 DC Levofloxacin/ Dextrose (Levaquin Per Pharmacy) 1 each PRN DAILY PRN 08/23/19 20:30 Cancel Magnesium Hydroxide (Milk Of Magnesia) 2,400 mg PRN DAILY PRN 08/24/19 12:18 Metoprolol Tartrate (Lopressor) 50 mg BID 08/24/19 21:00 08/27/19 09:05 50 MG Polyethylene Glycol (miraLAX PACKET) 17 gm PRN DAILY PRN 08/24/19 12:15 Rivaroxaban (Xarelto) 20 mg DAILY16 08/24/19 16:00 08/26/19 15:20 20 MG Sodium Chloride 500 ml @ 500 mls/hr 1X ONCE 08/23/19 20:30 08/23/19 21:29 DC 08/23/19 21:28 500 MLS/HR Vancomycin HCl (Vanco Per Pharmacy) 1 each PRN DAILY PRN 08/23/19 20:30 08/24/19 11:21 DC 08/24/19 02:07 1 EACH Vancomycin HCl (Vancomycin Trough Level) 1 each 1X ONCE 08/25/19 21:30 08/25/19 21:31 Cancel Vancomycin HCl 1.5 gm/Sodium Chloride 500 ml @ 250 mls/hr Q24H 08/24/19 22:00 08/24/19 11:20 DC Vancomycin HCl 2 gm/Sodium Chloride 500 ml @ 250 mls/hr 1X ONCE 08/23/19 22:00 08/23/19 23:59 DC 08/23/19 22:00 250 MLS/HR Zinc Oxide (Zinc Oxide 20% Topical) 1 esther TID PRN 08/25/19 20:00 Labs: Lab Laboratory Tests Test 08/26/19 14:32 08/26/19 16:38 08/26/19 20:36 08/27/19 08:11 Urine Collection Type Unknown Urine Color Yellow Urine Clarity Clear Urine pH 5.5 (<5.0-8.0) Urine Specific [place] 1.020 (1.000-1.030) Urine Protein Negative mg/dL (NEG-TRACE) Urine Glucose (UA) Negative mg/dL (NEG) Urine Ketones (Stick) Negative mg/dL (NEG) Urine Blood Large (NEG) Urine Nitrite Negative (NEG) Urine Bilirubin Negative (NEG) Urine Urobilinogen Dipstick 1.0 mg/dL (0.2 mg/dL) Urine Leukocyte Esterase Moderate (NEG) Urine RBC 20-40 /HPF (0-2) Urine WBC 20-40 /HPF (0-4) Urine Squamous Epithelial Cells Few /LPF Urine Bacteria Few /HPF (0-FEW) Urine Hyaline Casts Occasional /HPF Urine Mucus Marked /LPF Glucose (Fingerstick) 260 mg/dL (70-99) 215 mg/dL (70-99) 212 mg/dL (70-99) Test 08/27/19 11:25 Glucose (Fingerstick) 231 mg/dL (70-99) Objective: Assessment: Fever source likely lower extremity cellulitis Cellulitis of lower extremities bilaterally., Cultures Proteus and PSAE 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 AUGMENTIN AND ERYTHROMYCIN ALLERGY. Tolerating Rocephin well Acute kidney injury. Atrial fibrillation. Generalized weakness. Obesity. Urinary incontinence COVID negative Plan: Plan of Care Cont cefepime f/u consuelo of psae f/u culture s/p Vanco and Levaquin Local wound care as directed f/u cults and lab Maintain aspiration precautions CHON WISDOM MD Aug 27, 2019 12:31
[2019-08-27] MEDS: ANTI-COAG MONITOR BY PHARMACY. MC PRN (12:56)
[2019-08-27] MEDS: ASPIRIN ENTERIC COATED 81 MG TABLET.DR. PO SCH (12:59)
[2019-08-27 15:00] VITALS: BP 135/68
[2019-08-27] MEDS: RIVAROXABAN 10 MG TABLET. PO SCH (15:40)
[2019-08-27] MEDS: HYDROcodone/APAP 5/325MG 1 TAB TABLET PO PRN ×2 (15:40→20:34)
--- NOTE | 2019-08-27 16:43 | NUR ---
SW following. Reviewed chart and spoke with RN. Pt remains on room air and IV Rocephin. Pt is COVID negative. Coordinated care with CM, Dr. Butcher, therapy, and daughter. Therapy recommendation is for acute rehab. ERIC phoned and faxed rehab notes to Musa at [facility], , (fax). Musa has accepted this pt and submitted for authorization. ERIC awaiting answer from insurance approval. ERIC to continue following.
--- NOTE | 2019-08-27 17:50 | CONS ---
DATE OF CONSULTATION: 08/27/2019 PODIATRIC CONSULTATION REVIEW OF RECORD: This is an 84-year-old gentleman who was admitted with a chief complaint of weakness and bilateral cellulitis of his legs. PAST MEDICAL HISTORY: Coronary artery disease, congestive heart failure, diabetes type 2, atrial fibrillation. He usually goes to the [facility] in light of his medical issues including his wound care. ALLERGIES: MULTIPLE. AMOXICILLIN, CLAVULANIC ACID, ERYTHROMYCIN, METFORMIN, NIACIN, PIOGLITAZONE, SIMVASTATIN, FOSINOPRIL. SOCIAL HISTORY: Former smoker. Alcohol denies along with denies drugs. CURRENT MEDICATIONS: Reviewed including vancomycin, levofloxacin, furosemide, magnesium hydroxide, milk of magnesia, metoprolol tartrate, Lopressor, gabapentin, rivaroxaban i.e. Xarelto. PHYSICAL EXAMINATION: DERMATOLOGIC: The patient has elongated irregularly mycotic nails of all digits. He has severe stasis dermatitis along with extensive swelling in the legs and xerosis of the skin. VASCULAR: Pedal pulses are diminished, absent, hard to palpate due to the extensive swelling of the foot and ankle. NEUROLOGIC: The patient appears to have decreased sensorium. He relates no sensation to sharp instrumentation. MUSCULOSKELETAL: Deformed hammertoe deformities bilateral. ASSESSMENT: 1. Diabetic with peripheral vascular disease and some neuropathy. 2. Clinical evidence of painful onychomycosis, onychocryptosis, onycholysis of all 10 toenails. 3. History of multiple medical issues including lower extremity edema with cellulitis, which is currently being treated. PLAN: Debridement of all mycotic nails performed. No hemorrhage incurred. The patient was appreciated tolerated the procedure at bedside. KAYLA SLADE DPM DR: SHELDON/iwona JOB#: [id number] / [id number]
[2019-08-27 19:00] VITALS: BP 136/65
[2019-08-27] MEDS: INSULIN GLARGINE SYRINGE. SQ SCH (20:41)
[2019-08-27 22:48] VITALS: BP 151/84
[2019-08-28 03:03] VITALS: BP 119/71
[2019-08-28 07:53] VITALS: BP 164/83
[2019-08-28] MEDS: FUROSEMIDE 20 MG TABLET PO SCH (08:21)
[2019-08-28] MEDS: GABAPENTIN 300 MG CAPSULE. PO SCH ×2 (08:21→20:58)
[2019-08-28] MEDS: CETIRIZINE HCL 10 MG TABLET. PO SCH (08:21)
[2019-08-28] MEDS: CEFEPIME HCL IV Push 1 GM VIAL. IVP SCH ×2 (08:22→20:58)
[2019-08-28] MEDS: LACTOBACILLUS RHAMNOSUS GG 1 CAPSULE. PO SCH ×2 (08:22→20:54)
[2019-08-28] MEDS: ASPIRIN ENTERIC COATED 81 MG TABLET.DR. PO SCH (08:22)
[2019-08-28] MEDS: METOPROLOL TART IMMED RELEASE 50 MG TABLET. PO SCH (08:22)
[2019-08-28] MEDS: INSULIN LISPRO 300 UNITS/3 ML VIAL. SQ SCH ×3 (08:24→17:42)
--- NOTE | 2019-08-28 09:06 | PDOC ---
PROGRESS NOTES Chief Complaint Chief Complaint A/P: Mild cellulitis of lower extremities bilaterally. 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 Acute renal failure due to vasomotor nephropathy Atrial fibrillation chads vas score of greater than 4 currently on Xarelto Systolic CHF - will add ARB, change BB to carvedilol Troponinemia Severe malnutrition Debilitation Morbid obesity Generalized weakness. History of Present Illness History of Present Illness Mr Villalobos is an 84-year-old male, with past medical history of CAD, CHF, diabetes type 2, A. fib, who presents to the ED with generalized weakness for the last 2 weeks and is progressively gotten worse. Patient states that his weakness is mainly is is in his lower extremities and he does receive wound care for both of his legs due to venous insufficiency. Patient does suffer multiple wounds and possibly fungal infection that is also being treated by wound care. In the last couple days patient was not able to support his own weight and decided that he needed to be brought in. Patient resides at [facility] and feels that the care at [facility] is an adequate and would like to switch to a different location. Ultimately he would like to go home with home health and also receive physical therapy. Patient was tested negative for COVID recently patient does normally go to the OR for his wound care. Denies fevers, shortness of breath, chest pain, abdominal pain, diarrhea, bloody stools, hematuria. 08/24: Afebrile. He is worried about the time he and his are arrested and spent 3 days in [facility]. He is confused he knows he is confused. Has been urinating on himself and his legs and buttocks are moist. 08/25: Patient febrile today, 100.8 F. Mcknight catheter attempted to pass but is unable to patient does not wish for this. Barrier cream in place. Is excoriated on his buttocks. No shortness of breath or chest pain. COVID-19 initial test negative. 08/26: Afebrile. Uncomfortable with his leg straight. Wounds improved. He is still talking about being incarcerated, and confused. Wound culture with Pseudomonas, staph aureus, Proteus Afebrile. Wounds improving. Echo reviewed with global hypokinesis and EF 40-45%. Vitals Vitals Vital Signs Date Time Temp Pulse Resp B/P (MAP) Pulse Ox O2 Delivery O2 Flow Rate FiO2 08/28/19 08:22 62 164/83 08/28/19 07:53 97.7 17 97 Room Air 97.7 Physical Exam Physical Exam GENERAL: The patient is propped up in bed, alert, in no apparent distress. HEENT: Normal conjunctivae. Oropharynx pink and moist, no thrush. NECK: Supple. LUNGS: Clear to auscultation. No accessory muscle use. HEART: S1, S2. ABDOMEN: Obese, soft, nontender with bowel sounds present. Mcknight in place EXTREMITIES: Chronic venous dermatitis with mild erythema and several ulcerations and weeping. No cyanosis. SKIN: Warm to touch. No signs of rash. NEUROLOGIC: Alert and answering questions appropriately, though a poor historian. General: mild distress Heart: Regular rate Abdomen: Normal bowel sounds Labs LABS Laboratory Tests Test 08/27/19 11:25 08/27/19 16:37 08/27/19 20:06 08/28/19 07:36 Glucose (Fingerstick) 231 mg/dL (70-99) 217 mg/dL (70-99) 224 mg/dL (70-99) 191 mg/dL (70-99) Assessment and Plan Assessmemt and Plan Problems Medical Problems: (1) Cellulitis Status: Acute (2) Troponin level elevated Status: Acute Comment Review of Relevant I have reviewed the following items rayshawn (where applicable) has been applied. Labs Laboratory Tests Test 08/26/19 11:37 08/26/19 14:32 08/26/19 16:38 08/26/19 20:36 Glucose (Fingerstick) 269 mg/dL (70-99) 260 mg/dL (70-99) 215 mg/dL (70-99) Urine Collection Type Unknown Urine Color Yellow Urine Clarity Clear Urine pH 5.5 (<5.0-8.0) Urine Specific [place] 1.020 (1.000-1.030) Urine Protein Negative mg/dL (NEG-TRACE) Urine Glucose (UA) Negative mg/dL (NEG) Urine Ketones (Stick) Negative mg/dL (NEG) Urine Blood Large (NEG) Urine Nitrite Negative (NEG) Urine Bilirubin Negative (NEG) Urine Urobilinogen Dipstick 1.0 mg/dL (0.2 mg/dL) Urine Leukocyte Esterase Moderate (NEG) Urine RBC 20-40 /HPF (0-2) Urine WBC 20-40 /HPF (0-4) Urine Squamous Epithelial Cells Few /LPF Urine Bacteria Few /HPF (0-FEW) Urine Hyaline Casts Occasional /HPF Urine Mucus Marked /LPF Test 08/27/19 08:11 08/27/19 11:25 08/27/19 16:37 08/27/19 20:06 Glucose (Fingerstick) 212 mg/dL (70-99) 231 mg/dL (70-99) 217 mg/dL (70-99) 224 mg/dL (70-99) Test 08/28/19 07:36 Glucose (Fingerstick) 191 mg/dL (70-99) Laboratory Tests Test 08/27/19 11:25 08/27/19 16:37 08/27/19 20:06 08/28/19 07:36 Glucose (Fingerstick) 231 mg/dL (70-99) 217 mg/dL (70-99) 224 mg/dL (70-99) 191 mg/dL (70-99) Microbiology 08/26/19 Blood Culture - Preliminary, Resulted NO GROWTH AFTER 1 DAY 08/23/19 Gram Stain - Final, Resulted 08/23/19 Aerobic Culture - Preliminary, Resulted 08/23/19 Antimicrobic Susceptibility - Preliminary, Resulted Medications Current Medications Vancomycin HCl (Vanco Per Pharmacy) 1 each PRN DAILY PRN MC SEE COMMENTS Last administered on 08/24/19at 02:07; Start 08/23/19 at 20:30; Stop 08/24/19 at 11:21; Status DC Levofloxacin/ Dextrose (Levaquin Per Pharmacy) 1 each PRN DAILY PRN MC SEE C OMMENTS; Start 08/23/19 at 20:30; Status Cancel Sodium Chloride 500 ml @ 500 mls/hr 1X ONCE IV Last administered on 08/23/19at 21:28; Start 08/23/19 at 20:30; Stop 08/23/19 at 21:29; Status DC Levofloxacin/ Dextrose 150 ml @ 100 mls/hr 1X ONCE IV Last administered on 08/23/19at 21:28; Start 08/23/19 at 21:00; Stop 08/23/19 at 22:29; Status DC Vancomycin HCl 2 gm/Sodium Chloride 500 ml @ 250 mls/hr 1X ONCE IV Last administered on 08/23/19at 22:00; Start 08/23/19 at 22:00; Stop 08/23/19 at 23:59; Status DC Rivaroxaban (Xarelto) 15 mg 1X ONCE PO Last administered on 08/23/19at 22:48; Start 08/23/19 at 22:00; Stop 08/23/19 at 22:01; Status DC Cefepime HCl (Maxipime) 1 gm 1X ONCE IVP Last administered on 08/23/19at 22:48; Start 08/23/19 at 22:30; Stop 08/23/19 at 22:31; Status DC Levofloxacin/ Dextrose 50 ml @ 50 mls/hr Q24H IV ; Start 08/24/19 at 21:00; Stop 08/24/19 at 11:32; Status DC Vancomycin HCl 1.5 gm/Sodium Chloride 500 ml @ 250 mls/hr Q24H IV ; Start 08/24/19 at 22:00; Stop 08/24/19 at 11:20; Status DC Vancomycin HCl (Vancomycin Trough Level) 1 each 1X ONCE MC ; Start 08/25/19 at 21:30; Stop 08/25/19 at 21:31; Status Cancel Acetaminophen/ Hydrocodone Bitart (Lortab 5/325) 1 tab PRN Q4HRS PRN PO MODERATE PAIN Last administered on 08/27/19at 20:34; Start 08/24/19 at 10:00 Ceftriaxone Sodium (Rocephin) 1 gm Q24H IVP Last administered on 08/25/19at 12:51; Start 08/24/19 at 12:00; Stop 08/26/19 at 11:43; Status DC Bisacodyl (Dulcolax Tab) 5 mg PRN TID PRN PO CONSTIPATION 1ST CHOICE; Start 08/24/19 at 12:15 Cetirizine HCl (ZyrTEC) 10 mg DAILY PO Last administered on 08/28/19at 08:21; Start 08/24/19 at 13:00 Furosemide (Lasix) 20 mg DAILY PO Last administered on 08/28/19at 08:21; Start 08/24/19 at 13:00 Magnesium Hydroxide (Milk Of Magnesia) 400 mg PRN DAILY PRN PO CONSTIPATION; Start 08/24/19 at 12:15; Stop 08/24/19 at 12:18; Status DC Metoprolol Tartrate (Lopressor) 50 mg BID PO Last administered on 08/28/19 08:22; Start 08/24/19 at 21:00 Polyethylene Glycol (miraLAX PACKET) 17 gm PRN DAILY PRN PO CONSTIPATION 2ND CHOICE; Start 08/24/19 at 12:15 Gabapentin (Neurontin) 600 mg BID PO Last administered on 08/28/19 08:21; Start 08/24/19 at 21:00 Rivaroxaban (Xarelto) 20 mg DAILY16 PO Last administered on 08/27/19at 15:40; Start 08/24/19 at 16:00 Magnesium Hydroxide (Milk Of Magnesia) 2,400 mg PRN DAILY PRN PO CONSTIPATION, 3RD CHOICE; Start 08/24/19 at 12:18 Info (Anti-Coagulation Monitoring By Pharmacy) 1 each PRN DAILY PRN MC SEE COMMENTS Last administered on 08/27/19at 12:56; Start 08/24/19 at 12:30 Insulin Human Lispro (HumaLOG) 0-7 UNITS TIDWMEALS SQ Last administered on 08/28/19at 08:24; Start 08/24/19 at 13:00 Dextrose (Dextrose 50%-Water Syringe) 12.5 gm PRN Q15MIN PRN IV SEE COMMENTS; Start 08/24/19 at 12:30 Insulin Glargine (Lantus Syringe) 37 unit QHS SQ Last administered on 08/27/19at 20:41; Start 08/24/19 at 21:00 Insulin Glargine (Lantus Syringe) 35 unit DAILY08 SQ ; Start 08/25/19 at 08:00; Stop 08/24/19 at 12:38; Status DC Lactobacillus Rhamnosus (Culturelle) 1 cap BID PO Last administered on 08/28/19at 08:22; Start 08/25/19 at 21:00 Zinc Oxide (Zinc Oxide 20% Topical) 1 agata TID PRN TP SKIN PROTECTION; Start 08/25/19 at 20:00 Cefepime HCl (Maxipime) 1 gm Q12HR IVP Last administered on 08/28/19at 08:22; Start 08/26/19 at 13:00 Aspirin (Ecotrin) 81 mg DAILYWBKFT PO Last administered on 08/28/19at 08:22; Start 08/27/19 at 12:00 Active Scripts Active Clindamycin Hcl 300 Mg Capsule 1 Cap PO TID Reported Spironolactone 25 Mg Tablet 1 Tab PO DAILY Silvadene (Silver Sulfadiazine) 20 Gm Cream..g. 1 Agata TP DAILY 7 Days apply to affected area(s) Xarelto (Rivaroxaban) 20 Mg Tablet 1 Tab PO DAILY 30 Days with food Nystatin 15 Gm Cream..g. 1 Agata TP BID Miralax (Polyethylene Glycol 3350) 17 Gm Powd.pack 1 Packet PO DAILY PRN 2 Days dissolve in water Milk Of Magnesia (Magnesium Hydroxide) 400 Mg/5 Ml Oral.susp 400 Mg PO DAILY PRN Anti-Fungal Cream (Miconazole Nitrate) 113 Gm Cream..g. 1 Agata TP BID 14 Days Metoprolol Tartrate 50 Mg Tablet 1 Tab PO BID [place] Ultra Strength (Menthol) 1 Each Adh..patch 1 Each TP Q8HRS Losartan Potassium 100 Mg Tablet 100 Mg PO DAILY Lantus (Insulin Glargine,Hum.rec.anlog) 100 Unit/1 Ml Vial 35 Unit SQ DAILY08 Lantus (Insulin Glargine,Hum.rec.anlog) 100 Unit/1 Ml Vial 37 Unit SQ QHS Insulin Aspart 100 Unit/1 Ml Vial 25 Unit SQ TIDAC Gabapentin 600 Mg Tablet 600 Mg PO BID Furosemide 20 Mg Tablet 1 Tab PO DAILY Fluconazole 200 Mg Tablet 1 Tab PO QTU Fish Oil 1,000 Mg Softgel ([place]-3 Fatty Acids/Fish Oil) 1 Each Capsule 1 Cap PO BID 30 Days WITH MEALS Cetirizine Hcl 10 Mg Tablet 1 Tab PO DAILY Dulcolax (Bisacodyl) 5 Mg Tablet.dr 1 Tab PO TID PRN 1 Days Vitals/I & O Vital Sign - Last 24 Hours 08/27/19 08/27/19 08/27/19 08/27/19 11:00 15:00 19:00 20:00 Temp 98.0 98.3 98.1 98.0 98.3 98.1 Pulse 71 89 83 Resp 18 20 22 B/P (MAP) 111/62 (78) 135/68 (90) 136/65 (88) Pulse Ox 95 93 95 O2 Delivery Room Air Room Air Room Air Room Air 08/27/19 08/27/19 08/27/19 08/27/19 20:33 20:34 21:34 22:48 Temp 97.8 97.8 Pulse 83 59 Resp 17 B/P (MAP) 136/65 151/84 (106) Pulse Ox 96 O2 Delivery Room Air Room Air Room Air 08/28/19 08/28/19 08/28/19 03:03 07:53 08:22 Temp 97.6 97.7 97.6 97.7 Pulse 64 62 62 Resp 17 17 B/P (MAP) 119/71 (87) 164/83 (110) 164/83 Pulse Ox 96 97 O2 Delivery Room Air Room Air Intake and Output 08/27/19 08/27/19 08/28/19 15:00 23:00 07:00 Intake Total 150 ml Output Total 400 ml 450 ml 675 ml Balance -400 ml -450 ml -525 ml Images Echo: The left ventricle is normal size. The systolic function is mildly impaired. The ejection fraction is 40 to 45%. There is severe hypokinesis in the apex. 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 Doppler and Color Flow revealed mild aortic regurgitation. There is no significant aortic valvular stenosis. Doppler and Color-flow revealed mild mitral regurgitation. Doppler and Color Flow revealed trace tricuspid regurgitation. The PA pressure was estimated at 27 mmHg. Justicifation of Admission Dx: Justifications for Admission: Justification of Admission Dx: Yes LARA MERAZ MD Aug 28, 2019 09:06
--- NOTE | 2019-08-28 09:38 | CARD ---
MR#: [id number] Date of Study: 08/27/2019 Ordering Physician: RAGHAVENDRA LYONS, Referring Physician: RAGHAVENDRA LYONS, Tech: Mary Evans EDUARD APPROVED REPORT EXAM: Two-dimensional and M-mode echocardiogram with Doppler and color Doppler. Other Information Quality : Fair INDICATION Elevated Troponin 2D DIMENSIONS RVDd2.8 (2.9-3.5cm)Left Atrium(2D)4.3 (1.6-4.0cm) IVSd0.7 (0.7-1.1cm)Aortic Root(2D)3.4 (2.0-3.7cm) LVDd5.6 (3.9-5.9cm)LVOT Diameter2.4 (1.8-2.4cm) PWd0.8 (0.7-1.1cm)LVDs4.4 (2.5-4.0cm) FS (%) 21.4 %SV66.3 ml Aortic Valve AoV Peak Sonny.263.2cm/sAoV VTI47.7cm AO Peak GR.27.7mmHgLVOT VTI 22.97cm AO Mean GR.13mmHgAVA (VTI)2.13cm2 AI P 1/2 Lgaa338hq Mitral Valve MV E Ftxamtua10.8cm/sMV DECEL OTBT147al MV A Pomjogmy658.4cm/sE/A Ratio0.9 TDI Lateral E' P. V5.24cm/sMedial E' P. V5.58cm/s E/Lateral E'18.5E/Medial E'17.3 Tricuspid Valve TR P. Mpoaivss148qv/sRAP ZHESBASS8niTh TR Peak Gr.70kqAtOYPW82ecCf LEFT VENTRICLE The left ventricle is normal size. There is normal left ventricular wall thickness. The systolic func tion is mildly impaired. The ejection fraction is 40 to 45%. There is severe hypokinesis in the apex. 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 Transmitral Doppler flow pattern is Grade I-abnormal relaxation patte rn. RIGHT VENTRICLE The right ventricle is normal size. The right ventricular systolic function is normal. ATRIA The left atrium is mildly dilated. The right atrium size is normal. The interatrial septum is intact with no evidence for an atrial septal defect or patent foramen ovale as noted on 2-D or Doppler imagi ng. AORTIC VALVE The aortic valve is moderately thickened but opens well. Doppler and Color Flow revealed mild aortic regurgitation. There is no significant aortic valvular stenosis. MITRAL VALVE The mitral valve is calcified but opens well. Mitral annular calcification is mild to moderate. There is no evidence of mitral valve prolapse. There is no mitral valve stenosis. Doppler and Color-flow r evealed mild mitral regurgitation. TRICUSPID VALVE The tricuspid valve is normal in structure and function. Doppler and Color Flow revealed trace tricus pid regurgitation. The PA pressure was estimated at 27 mmHg. There is no tricuspid valve stenosis. PULMONIC VALVE The pulmonic valve is not well visualized. Doppler and Color Flow revealed no pulmonic valvular regur gitation. There is no pulmonic valvular stenosis. GREAT VESSELS The aortic root is normal in size. The ascending aorta is not well seen. The IVC was not visualized. PERICARDIAL EFFUSION There is no evidence of significant pericardial effusion. Critical Notification Critical Value: No <Conclusion> The left ventricle is normal size. The systolic function is mildly impaired. The ejection fraction is 40 to 45%. There is severe hypokinesis in the apex. 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 Doppler and Color Flow revealed mild aortic regurgitation. There is no significant aortic valvular stenosis. Doppler and Color-flow revealed mild mitral regurgitation. Doppler and Color Flow revealed trace tricuspid regurgitation. The PA pressure was estimated at 27 mmHg. Signed by : Noé Cummins MD Electronically Approved : 08/28/2019 09:37:27
[2019-08-28 11:12] VITALS: BP 156/82
[2019-08-28] MEDS: LOSARTAN POTASSIUM 25 MG TABLET. PO SCH (11:36)
--- NOTE | 2019-08-28 12:13 | PDOC ---
Infectious Disease Note Subjective: Subjective Patient is confused Complains of pain or the left lower extremity States he is going to go to " [facility]" Denies nausea, vomiting, diarrhea Vital Signs: Vital Signs Vital Signs Date Time Temp Pulse Resp B/P (MAP) Pulse Ox O2 Delivery O2 Flow Rate FiO2 08/28/19 11:36 58 156/82 08/28/19 11:12 98.0 17 97 Room Air 98.0 Physical Exam: PHYSICAL EXAM GENERAL: Awake, alert, confused HEENT: Normal conjunctivae. Oropharynx pink and moist, no thrush. NECK: Supple. LUNGS: Clear to auscultation. No accessory muscle use. HEART: S1, S2. ABDOMEN: Obese, soft, nontender with bowel sounds present. Mcknight in place EXTREMITIES: Chronic venous dermatitis with mild erythema and several ulcerations and weeping. No cyanosis. SKIN: Warm to touch. No signs of rash. NEUROLOGIC: Alert , awake more confused today Medications: Inpatient Meds: Current Medications Medications (Trade) Dose Ordered Sig/Harmeet Start Time Stop Time Status Last Admin Dose Admin Acetaminophen/ Hydrocodone Bitart (Lortab 5/325) 1 tab PRN Q4HRS PRN 08/24/19 10:00 08/27/19 20:34 1 TAB Aspirin (Ecotrin) 81 mg DAILYWBKFT 08/27/19 12:00 08/28/19 08:22 81 MG Bisacodyl (Dulcolax Tab) 5 mg PRN TID PRN 08/24/19 12:15 Carvedilol (Coreg) 12.5 mg BIDWMEALS 08/28/19 17:00 Cefepime HCl (Maxipime) 1 gm Q12HR 08/26/19 13:00 08/28/19 08:22 1 GM Ceftriaxone Sodium (Rocephin) 1 gm Q24H 08/24/19 12:00 08/26/19 11:43 DC 08/25/19 12:51 1 GM Cetirizine HCl (ZyrTEC) 10 mg DAILY 08/24/19 13:00 08/28/19 08:21 10 MG Dextrose (Dextrose 50%-Water Syringe) 12.5 gm PRN Q15MIN PRN 08/24/19 12:30 Furosemide (Lasix) 20 mg DAILY 08/24/19 13:00 08/28/19 08:21 20 MG Gabapentin (Neurontin) 600 mg BID 08/24/19 21:00 08/28/19 08:21 600 MG Info (Anti-Coagulation Monitoring By Pharmacy) 1 each PRN DAILY PRN 08/24/19 12:30 08/27/19 12:56 1 EACH Insulin Glargine (Lantus Syringe) 35 unit DAILY08 08/25/19 08:00 08/24/19 12:38 DC Insulin Human Lispro (HumaLOG) 0-7 UNITS TIDWMEALS 08/24/19 13:00 08/28/19 11:40 6 UNITS Lactobacillus Rhamnosus (Culturelle) 1 cap BID 08/25/19 21:00 08/28/19 08:22 1 CAP Levofloxacin/ Dextrose 50 ml @ 50 mls/hr Q24H 08/24/19 21:00 08/24/19 11:32 DC Levofloxacin/ Dextrose (Levaquin Per Pharmacy) 1 each PRN DAILY PRN 08/23/19 20:30 Cancel Losartan Potassium (Cozaar) 25 mg DAILY 08/28/19 10:15 08/28/19 11:36 25 MG Magnesium Hydroxide (Milk Of Magnesia) 2,400 mg PRN DAILY PRN 08/24/19 12:18 Metoprolol Tartrate (Lopressor) 50 mg BID 08/24/19 21:00 08/28/19 10:10 DC 08/28/19 08:22 50 MG Polyethylene Glycol (miraLAX PACKET) 17 gm PRN DAILY PRN 08/24/19 12:15 Rivaroxaban (Xarelto) 20 mg DAILY16 08/24/19 16:00 08/27/19 15:40 20 MG Sodium Chloride 500 ml @ 500 mls/hr 1X ONCE 08/23/19 20:30 08/23/19 21:29 DC 08/23/19 21:28 500 MLS/HR Vancomycin HCl (Vanco Per Pharmacy) 1 each PRN DAILY PRN 08/23/19 20:30 08/24/19 11:21 DC 08/24/19 02:07 1 EACH Vancomycin HCl (Vancomycin Trough Level) 1 each 1X ONCE 08/25/19 21:30 08/25/19 21:31 Cancel Vancomycin HCl 1.5 gm/Sodium Chloride 500 ml @ 250 mls/hr Q24H 08/24/19 22:00 08/24/19 11:20 DC Vancomycin HCl 2 gm/Sodium Chloride 500 ml @ 250 mls/hr 1X ONCE 08/23/19 22:00 08/23/19 23:59 DC 08/23/19 22:00 250 MLS/HR Zinc Oxide (Zinc Oxide 20% Topical) 1 esther TID PRN 08/25/19 20:00 Labs: Lab Laboratory Tests Test 08/27/19 16:37 08/27/19 20:06 08/28/19 07:36 08/28/19 11:01 Glucose (Fingerstick) 217 mg/dL (70-99) 224 mg/dL (70-99) 191 mg/dL (70-99) 257 mg/dL (70-99) Objective: Assessment: Fever source likely lower extremity cellulitis Cellulitis of lower extremities bilaterally., Cultures Proteus and PSAE, E. 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 AUGMENTIN AND ERYTHROMYCIN ALLERGY. Tolerating Rocephin well Acute kidney injury. Atrial fibrillation. Generalized weakness. Obesity. Urinary incontinence COVID negative Plan: Plan of Care Cont cefepime Dose Dapto once f/u consuelo of e coli,proteus,staph aureus, consuelo is pending per d/w micro lab at [facility] and here f/u culture Local wound care as directed f/u cults and lab Maintain aspiration precautions CHON WISDOM MD Aug 28, 2019 12:13
[2019-08-28] MEDS ORDERED: DAPTOmycin (GENERIC) IVPB 360 MG in IV NORMAL SALINE 50ML 50 ML IV SCH (13:00)
[2019-08-28 15:30] VITALS: BP 143/79
--- NOTE | 2019-08-28 16:48 | NUR ---
SW following. Reviewed chart and spoke with RN. Discharge plan remains acute rehab. Pt has been accepted clinically at [facility]. Spoke with Musa glaser today and he is still waiting on insurance authorization. Pt is COVID negative. SW to continue following.
[2019-08-28] MEDS: RIVAROXABAN 10 MG TABLET. PO SCH (17:38)
[2019-08-28] MEDS: HYDROcodone/APAP 5/325MG 1 TAB TABLET PO PRN (17:38)
[2019-08-28] MEDS: CARVEDILOL 12.5 MG TABLET. PO SCH (17:38)
[2019-08-28 19:00] VITALS: BP 152/80
[2019-08-28] MEDS: INSULIN GLARGINE SYRINGE. SQ SCH (21:10)
[2019-08-28] MEDS: DOXYCYCLINE HYCLATE 100 MG TABLET PO SCH (21:38)
[2019-08-28 23:00] VITALS: BP 139/64
[2019-08-29 02:43] VITALS: BP 136/68
[2019-08-29 05:41] LABS: BASO % 1 % (0-3); EOS % 0 % (0-3); HEMATOCRIT 26.7 % (39.0-53.0); HEMOGLOBIN 8.6 g/dL (13.0-17.5); LYMPH # 0.6 x10^3/uL (1.0-4.8); LYMPH % 11 % (24-48); MEAN CORPUSCULAR HEMOGLOBIN 28 pg (25-35); MEAN CORPUSCULAR HGB CONC 32 g/dL (31-37); MEAN CORPUSCULAR VOLUME 87 fL (79-100); MONO # 0.6 x10^3/uL (0.0-1.1); MONO % 12 % (0-9); NEUT # 3.9 x10^3/uL (1.8-7.7); NEUT % 76 % (31-73); PLATELET COUNT 292 x10^3/uL (140-400); RED BLOOD COUNT 3.07 x10^6/uL (4.30-5.70); RED CELL DISTRIBUTION WIDTH 15.1 % (11.5-14.5); WHITE BLOOD COUNT 5.1 x10^3/uL (4.0-11.0)
[2019-08-29 05:47] LABS: ALBUMIN 2.1 g/dL (3.4-5.0); ALBUMIN/GLOBULIN RATIO 0.4 (1.0-1.7); CALCIUM 8.5 mg/dL (8.5-10.1); CREATININE 1.2 mg/dL (0.7-1.3); GFR 57.7; POTASSIUM 3.8 mmol/L (3.5-5.1); TOTAL BILIRUBIN 0.5 mg/dL (0.2-1.0); TOTAL PROTEIN 7.1 g/dL (6.4-8.2)
--- NOTE | 2019-08-29 07:37 | NUR ---
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
[2019-08-29 07:47] VITALS: BP 142/63
[2019-08-29] MEDS: CEFEPIME HCL IV Push 1 GM VIAL. IVP SCH (08:37)
[2019-08-29] MEDS: DOXYCYCLINE HYCLATE 100 MG TABLET PO SCH (08:38)
[2019-08-29] MEDS: ASPIRIN ENTERIC COATED 81 MG TABLET.DR. PO SCH (08:38)
[2019-08-29] MEDS: FUROSEMIDE 20 MG TABLET PO SCH (08:38)
[2019-08-29] MEDS: GABAPENTIN 300 MG CAPSULE. PO SCH ×2 (08:38→21:16)
[2019-08-29] MEDS: LOSARTAN POTASSIUM 25 MG TABLET. PO SCH (08:38)
[2019-08-29] MEDS: LACTOBACILLUS RHAMNOSUS GG 1 CAPSULE. PO SCH ×2 (08:38→21:16)
[2019-08-29] MEDS: CARVEDILOL 12.5 MG TABLET. PO SCH ×2 (08:38→17:53)
[2019-08-29] MEDS: CETIRIZINE HCL 10 MG TABLET. PO SCH (08:38)
[2019-08-29] MEDS: INSULIN LISPRO 300 UNITS/3 ML VIAL. SQ SCH ×3 (08:41→17:56)
--- NOTE | 2019-08-29 08:52 | PDOC ---
PROGRESS NOTES Chief Complaint Chief Complaint A/P: Mild cellulitis of lower extremities bilaterally. 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 Acute renal failure due to vasomotor nephropathy Atrial fibrillation chads vas score of greater than 4 currently on Xarelto Systolic CHF - will add ARB, change BB to carvedilol Troponinemia Severe malnutrition Debilitation Morbid obesity Generalized weakness. Urinary retention - river in place, will need voiding trial History of Present Illness History of Present Illness Mr Villalobos is an 84-year-old male, with past medical history of CAD, CHF, diabetes type 2, A. fib, who presents to the ED with generalized weakness for the last 2 weeks and is progressively gotten worse. Patient states that his weakness is mainly is is in his lower extremities and he does receive wound care for both of his legs due to venous insufficiency. Patient does suffer multiple wounds and possibly fungal infection that is also being treated by wound care. In the last couple days patient was not able to support his own weight and de cided that he needed to be brought in. Patient resides at [facility] and feels that the care at [facility] is an adequate and would like to switch to a different location. Ultimately he would like to go home with home health and also receive physical therapy. Patient was tested negative for COVID recently patient does normally go to the ID for his wound care. Denies fevers, shortness of breath, chest pain, abdominal pain, diarrhea, bloody stools, hematuria. 08/24: Afebrile. He is worried about the time he and his are arrested and spent 3 days in senior living. He is confused he knows he is confused. Has been urinating on himself and his legs and buttocks are moist. 08/25: Patient febrile today, 100.8 F. River catheter attempted to pass but is unable to patient does not wish for this. Barrier cream in place. Is excoriated on his buttocks. No shortness of breath or chest pain. COVID-19 i nitial test negative. 08/26: Afebrile. Uncomfortable with his leg straight. Wounds improved. He is still talking about being incarcerated, and confused. Wound culture with Pseudomonas, staph aureus, Proteus 08/27: Afebrile. Wounds improving. Echo reviewed with global hypokinesis and EF 40-45%. Afebrile. Wounds improving confusion is a little improved. Discussed with daughter at bedside he is not appropriate to go back to 5. Does need acute rehab. Changed to oral antibiotics doxycycline for 7 days and Cipro for 5 days. Vitals Vitals Vital Signs Date Time Temp Pulse Resp B/P (MAP) Pulse Ox O2 Delivery O2 Flow Rate FiO2 08/29/19 08:38 58 142/63 08/29/19 07:47 98.0 20 96 Room Air 98.0 Physical Exam Physical Exam GENERAL: Awake, alert, confused HEENT: Normal conjunctivae. Oropharynx pink and moist, no thrush. NECK: Supple. LUNGS: Clear to auscultation. No accessory muscle use. HEART: S1, S2. ABDOMEN: Obese, soft, nontender with bowel sounds present. River in place EXTREMITIES: Chronic venous dermatitis with mild erythema and several ulcerations and weeping. No cyanosis. SKIN: Warm to touch. No signs of rash. NEUROLOGIC: Alert , awake more confused today General: mild distress Heart: Regular rate Abdomen: Normal bowel sounds Labs LABS Laboratory Tests Test 08/28/19 11:01 08/28/19 15:30 08/28/19 16:24 08/29/19 04:48 Glucose (Fingerstick) 257 mg/dL (70-99) 179 mg/dL (70-99) Creatine Kinase 101 U/L (39-308) 80 U/L (39-308) White Blood Count 5.1 x10^3/uL (4.0-11.0) Red Blood Count 3.07 x10^6/uL (4.30-5.70) Hemoglobin 8.6 g/dL (13.0-17.5) Hematocrit 26.7 % (39.0-53.0) Mean Corpuscular Volume 87 fL (79-100) Mean Corpuscular Hemoglobin 28 pg (25-35) Mean Corpuscular Hemoglobin Concent 32 g/dL (31-37) Red Cell Distribution Width 15.1 % (11.5-14.5) Platelet Count 292 x10^3/uL (140-400) Neutrophils (%) (Auto) 76 % (31-73) Lymphocytes (%) (Auto) 11 % (24-48) Monocytes (%) (Auto) 12 % (0-9) Eosinophils (%) (Auto) 0 % (0-3) Basophils (%) (Auto) 1 % (0-3) Neutrophils # (Auto) 3.9 x10^3/uL (1.8-7.7) Lymphocytes # (Auto) 0.6 x10^3/uL (1.0-4.8) Monocytes # (Auto) 0.6 x10^3/uL (0.0-1.1) Eosinophils # (Auto) 0.0 x10^3/uL (0.0-0.7) Basophils # (Auto) 0.0 x10^3/uL (0.0-0.2) Sodium Level 140 mmol/L (136-145) Potassium Level 3.8 mmol/L (3.5-5.1) Chloride Level 105 mmol/L (98-107) Carbon Dioxide Level 27 mmol/L (21-32) Anion Gap 8 (6-14) Blood Urea Nitrogen 19 mg/dL (8-26) Creatinine 1.2 mg/dL (0.7-1.3) Estimated GFR (Cockcroft-Gault) 57.7 BUN/Creatinine Ratio 16 (6-20) Glucose Level 221 mg/dL (70-99) Calcium Level 8.5 mg/dL (8.5-10.1) Total Bilirubin 0.5 mg/dL (0.2-1.0) Aspartate Amino Transf (AST/SGOT) 16 U/L (15-37) Alanine Aminotransferase (ALT/SGPT) 12 U/L (16-63) Alkaline Phosphatase 56 U/L (46-116) Total Protein 7.1 g/dL (6.4-8.2) Albumin 2.1 g/dL (3.4-5.0) Albumin/Globulin Ratio 0.4 (1.0-1.7) Test 08/29/19 08:12 Glucose (Fingerstick) 191 mg/dL (70-99) Assessment and Plan Assessmemt and Plan Problems Medical Problems: (1) Cellulitis Status: Acute (2) Troponin level elevated Status: Acute Comment Review of Relevant I have reviewed the following items rayshawn (where applicable) has been applied. Labs Laboratory Tests Test 08/27/19 11:25 08/27/19 16:37 08/27/19 20:06 08/28/19 07:36 Glucose (Fingerstick) 231 mg/dL (70-99) 217 mg/dL (70-99) 224 mg/dL (70-99) 191 mg/dL (70-99) Test 08/28/19 11:01 08/28/19 15:30 08/28/19 16:24 08/29/19 04:48 Glucose (Fingerstick) 257 mg/dL (70-99) 179 mg/dL (70-99) Creatine Kinase 101 U/L (39-308) 80 U/L (39-308) White Blood Count 5.1 x10^3/uL (4.0-11.0) Red Blood Count 3.07 x10^6/uL (4.30-5.70) Hemoglobin 8.6 g/dL (13.0-17.5) Hematocrit 26.7 % (39.0-53.0) Mean Corpuscular Volume 87 fL (79-100) Mean Corpuscular Hemoglobin 28 pg (25-35) Mean Corpuscular Hemoglobin Concent 32 g/dL (31-37) Red Cell Distribution Width 15.1 % (11.5-14.5) Platelet Count 292 x10^3/uL (140-400) Neutrophils (%) (Auto) 76 % (31-73) Lymphocytes (%) (Auto) 11 % (24-48) Monocytes (%) (Auto) 12 % (0-9) Eosinophils (%) (Auto) 0 % (0-3) Basophils (%) (Auto) 1 % (0-3) Neutrophils # (Auto) 3.9 x10^3/uL (1.8-7.7) Lymphocytes # (Auto) 0.6 x10^3/uL (1.0-4.8) Monocytes # (Auto) 0.6 x10^3/uL (0.0-1.1) Eosinophils # (Auto) 0.0 x10^3/uL (0.0-0.7) Basophils # (Auto) 0.0 x10^3/uL (0.0-0.2) Sodium Level 140 mmol/L (136-145) Potassium Level 3.8 mmol/L (3.5-5.1) Chloride Level 105 mmol/L (98-107) Carbon Dioxide Level 27 mmol/L (21-32) Anion Gap 8 (6-14) Blood Urea Nitrogen 19 mg/dL (8-26) Creatinine 1.2 mg/dL (0.7-1.3) Estimated GFR (Cockcroft-Gault) 57.7 BUN/Creatinine Ratio 16 (6-20) Glucose Level 221 mg/dL (70-99) Calcium Level 8.5 mg/dL (8.5-10.1) Total Bilirubin 0.5 mg/dL (0.2-1.0) Aspartate Amino Transf (AST/SGOT) 16 U/L (15-37) Alanine Aminotransferase (ALT/SGPT) 12 U/L (16-63) Alkaline Phosphatase 56 U/L (46-116) Total Protein 7.1 g/dL (6.4-8.2) Albumin 2.1 g/dL (3.4-5.0) Albumin/Globulin Ratio 0.4 (1.0-1.7) Test 08/29/19 08:12 Glucose (Fingerstick) 191 mg/dL (70-99) Laboratory Tests Test 08/28/19 11:01 08/28/19 15:30 08/28/19 16:24 08/29/19 04:48 Glucose (Fingerstick) 257 mg/dL (70-99) 179 mg/dL (70-99) Creatine Kinase 101 U/L (39-308) 80 U/L (39-308) White Blood Count 5.1 x10^3/uL (4.0-11.0) Red Blood Count 3.07 x10^6/uL (4.30-5.70) Hemoglobin 8.6 g/dL (13.0-17.5) Hematocrit 26.7 % (39.0-53.0) Mean Corpuscular Volume 87 fL (79-100) Mean Corpuscular Hemoglobin 28 pg (25-35) Mean Corpuscular Hemoglobin Concent 32 g/dL (31-37) Red Cell Distribution Width 15.1 % (11.5-14.5) Platelet Count 292 x10^3/uL (140-400) Neutrophils (%) (Auto) 76 % (31-73) Lymphocytes (%) (Auto) 11 % (24-48) Monocytes (%) (Auto) 12 % (0-9) Eosinophils (%) (Auto) 0 % (0-3) Basophils (%) (Auto) 1 % (0-3) Neutrophils # (Auto) 3.9 x10^3/uL (1.8-7.7) Lymphocytes # (Auto) 0.6 x10^3/uL (1.0-4.8) Monocytes # (Auto) 0.6 x10^3/uL (0.0-1.1) Eosinophils # (Auto) 0.0 x10^3/uL (0.0-0.7) Basophils # (Auto) 0.0 x10^3/uL (0.0-0.2) Sodium Level 140 mmol/L (136-145) Potassium Level 3.8 mmol/L (3.5-5.1) Chloride Level 105 mmol/L (98-107) Carbon Dioxide Level 27 mmol/L (21-32) Anion Gap 8 (6-14) Blood Urea Nitrogen 19 mg/dL (8-26) Creatinine 1.2 mg/dL (0.7-1.3) Estimated GFR (Cockcroft-Gault) 57.7 BUN/Creatinine Ratio 16 (6-20) Glucose Level 221 mg/dL (70-99) Calcium Level 8.5 mg/dL (8.5-10.1) Total Bilirubin 0.5 mg/dL (0.2-1.0) Aspartate Amino Transf (AST/SGOT) 16 U/L (15-37) Alanine Aminotransferase (ALT/SGPT) 12 U/L (16-63) Alkaline Phosphatase 56 U/L (46-116) Total Protein 7.1 g/dL (6.4-8.2) Albumin 2.1 g/dL (3.4-5.0) Albumin/Globulin Ratio 0.4 (1.0-1.7) Test 08/29/19 08:12 Glucose (Fingerstick) 191 mg/dL (70-99) Microbiology 08/26/19 Urine Culture - Final, Complete 08/26/19 Blood Culture - Preliminary, Resulted NO GROWTH AFTER 2 DAYS 08/23/19 Gram Stain - Final, Resulted 08/23/19 Aerobic Culture - Preliminary, Resulted 08/23/19 Antimicrobic Susceptibility - Preliminary, Resulted Medications Current Medications Vancomycin HCl (Vanco Per Pharmacy) 1 each PRN DAILY PRN MC SEE COMMENTS Last administered on 08/24/19at 02:07; Start 08/23/19 at 20:30; Stop 08/24/19 at 11:21; Status DC Levofloxacin/ Dextrose (Levaquin Per Pharmacy) 1 each PRN DAILY PRN MC SEE COMMENTS; Start 08/23/19 at 20:30; Status Cancel Sodium Chloride 500 ml @ 500 mls/hr 1X ONCE IV Last administered on 08/23/19at 21:28; Start 08/23/19 at 20:30; Stop 08/23/19 at 21:29; Status DC Levofloxacin/ Dextrose 150 ml @ 100 mls/hr 1X ONCE IV Last administered on 08/23/19at 21:28; Start 08/23/19 at 21:00; Stop 08/23/19 at 22:29; Status DC Vancomycin HCl 2 gm/Sodium Chloride 500 ml @ 250 mls/hr 1X ONCE IV Last administered on 08/23/19at 22:00; Start 08/23/19 at 22:00; Stop 08/23/19 at 23:59; Status DC Rivaroxaban (Xarelto) 15 mg 1X ONCE PO Last administered on 08/23/19at 22:48; Start 08/23/19 at 22:00; Stop 08/23/19 at 22:01; Status DC Cefepime HCl (Maxipime) 1 gm 1X ONCE IVP Last administered on 08/23/19at 22:48; Start 08/23/19 at 22:30; Stop 08/23/19 at 22:31; Status DC Levofloxacin/ Dextrose 50 ml @ 50 mls/hr Q24H IV ; Start 08/24/19 at 21:00; Stop 08/24/19 at 11:32; Status DC Vancomycin HCl 1.5 gm/Sodium Chloride 500 ml @ 250 mls/hr Q24H IV ; Start 08/24/19 at 22:00; Stop 08/24/19 at 11:20; Status DC Vancomycin HCl (Vancomycin Trough Level) 1 each 1X ONCE MC ; Start 08/25/19 at 21:30; Stop 08/25/19 at 21:31; Status Cancel Acetaminophen/ Hydrocodone Bitart (Lortab 5/325) 1 tab PRN Q4HRS PRN PO MODERATE PAIN Last administered on 08/28/19at 17:38; Start 08/24/19 at 10:00 Ceftriaxone Sodium (Rocephin) 1 gm Q24H IVP Last administered on 08/25/19at 12:51; Start 08/24/19 at 12:00; Stop 08/26/19 at 11:43; Status DC Bisacodyl (Dulcolax Tab) 5 mg PRN TID PRN PO CONSTIPATION 1ST CHOICE; Start 08/24/19 at 12:15 Cetirizine HCl (ZyrTEC) 10 mg DAILY PO Last administered on 08/29/19at 08:38; Start 08/24/19 at 13:00 Furosemide (Lasix) 20 mg DAILY PO Last administered on 08/29/19at 08:38; Start 08/24/19 at 13:00 Magnesium Hydroxide (Milk Of Magnesia) 400 mg PRN DAILY PRN PO CONSTIPATION; Start 08/24/19 at 12:15; Stop 08/24/19 at 12:18; Status DC Metoprolol Tartrate (Lopressor) 50 mg BID PO Last administered on 08/28/19at 08: 22; Start 08/24/19 at 21:00; Stop 08/28/19 at 10:10; Status DC Polyethylene Glycol (miraLAX PACKET) 17 gm PRN DAILY PRN PO CONSTIPATION 2ND CHOICE; Start 08/24/19 at 12:15 Gabapentin (Neurontin) 600 mg BID PO Last administered on 08/29/19 08:38; Start 08/24/19 at 21:00 Rivaroxaban (Xarelto) 20 mg DAILY16 PO Last administered on 08/28/19at 17:38; Start 08/24/19 at 16:00 Magnesium Hydroxide (Milk Of Magnesia) 2,400 mg PRN DAILY PRN PO CONSTIPATION, 3RD CHOICE; Start 08/24/19 at 12:18 Info (Anti-Coagulation Monitoring By Pharmacy) 1 each PRN DAILY PRN MC SEE COMMENTS Last administered on 08/27/19at 12:56; Start 08/24/19 at 12:30 Insulin Human Lispro (HumaLOG) 0-7 UNITS TIDWMEALS SQ Last administered on 08/29/19at 08:41; Start 08/24/19 at 13:00 Dextrose (Dextrose 50%-Water Syringe) 12.5 gm PRN Q15MIN PRN IV SEE COMMENTS; Start 08/24/19 at 12:30 Insulin Glargine (Lantus Syringe) 37 unit QHS SQ Last administered on 08/28/19 21:10; Start 08/24/19 at 21:00 Insulin Glargine (Lantus Syringe) 35 unit DAILY08 SQ ; Start 08/25/19 at 08:00; Stop 08/24/19 at 12:38; Status DC Lactobacillus Rhamnosus (Culturelle) 1 cap BID PO Last administered on 08/29/19at 08:38; Start 08/25/19 at 21:00 Zinc Oxide (Zinc Oxide 20% Topical) 1 agata TID PRN TP SKIN PROTECTION; Start 08/25/19 at 20:00 Cefepime HCl (Maxipime) 1 gm Q12HR IVP Last administered on 08/29/19 08:37; Start 08/26/19 at 13:00 Aspirin (Ecotrin) 81 mg DAILYWBKFT PO Last administered on 08/29/19 08:38; Start 08/27/19 at 12:00 Carvedilol (Coreg) 12.5 mg BIDWMEALS PO Last administered on 08/29/19 08:38; Start 08/28/19 at 17:00 Losartan Potassium (Cozaar) 25 mg DAILY PO Last administered on 08/29/19 08:38; Start 08/28/19 at 10:15 Daptomycin 360 mg/ Sodium Chloride 50 ml @ 100 mls/hr Q24H IV Last administered on 08/28/19at 13:45; Start 08/28/19 at 13:00 Doxycycline Hyclate (Vibra-Tab) 100 mg BID PO Last administered on 08/29/19 08:38; Start 08/28/19 at 21:00 Active Scripts Active Clindamycin Hcl 300 Mg Capsule 1 Cap PO TID Reported Spironolactone 25 Mg Tablet 1 Tab PO DAILY Silvadene (Silver Sulfadiazine) 20 Gm Cream..g. 1 Agata TP DAILY 7 Days apply to affected area(s) Xarelto (Rivaroxaban) 20 Mg Tablet 1 Tab PO DAILY 30 Days with food Nystatin 15 Gm Cream..g. 1 Agata TP BID Miralax (Polyethylene Glycol 3350) 17 Gm Powd.pack 1 Packet PO DAILY PRN 2 Days dissolve in water Milk Of Magnesia (Magnesium Hydroxide) 400 Mg/5 Ml Oral.susp 400 Mg PO DAILY PRN Anti-Fungal Cream (Miconazole Nitrate) 113 Gm Cream..g. 1 Agata TP BID 14 Days Metoprolol Tartrate 50 Mg Tablet 1 Tab PO BID Bengay Ultra Strength (Menthol) 1 Each Adh..patch 1 Each TP Q8HRS Losartan Potassium 100 Mg Tablet 100 Mg PO DAILY Lantus (Insulin Glargine,Hum.rec.anlog) 100 Unit/1 Ml Vial 35 Unit SQ DAILY08 Lantus (Insulin Glargine,Hum.rec.anlog) 100 Unit/1 Ml Vial 37 Unit SQ QHS Insulin Aspart 100 Unit/1 Ml Vial 25 Unit SQ TIDAC Gabapentin 600 Mg Tablet 600 Mg PO BID Furosemide 20 Mg Tablet 1 Tab PO DAILY Fluconazole 200 Mg Tablet 1 Tab PO QTU Fish Oil 1,000 Mg Softgel (O'Neals-3 Fatty Acids/Fish Oil) 1 Each Capsule 1 Cap PO BID 30 Days WITH MEALS Cetirizine Hcl 10 Mg Tablet 1 Tab PO DAILY Dulcolax (Bisacodyl) 5 Mg Tablet.dr 1 Tab PO TID PRN 1 Days Vitals/I & O Vital Sign - Last 24 Hours 08/28/19 08/28/19 08/28/19 08/28/19 11:12 11:36 15:30 17:38 Temp 98.0 98.2 98.0 98.2 Pulse 58 58 65 Resp 17 17 B/P (MAP) 156/82 (106) 156/82 143/79 (100) Pulse Ox 97 96 O2 Delivery Room Air Room Air Room Air 08/28/19 08/28/19 08/28/19 08/28/19 17:38 18:44 19:00 20:15 Temp 98.2 98.2 Pulse 65 72 Resp 21 B/P (MAP) 143/79 152/80 (104) Pulse Ox 95 O2 Delivery Room Air Room Air Room Air 08/28/19 08/29/19 08/29/19 08/29/19 23:00 02:43 07:47 08:38 Temp 98.0 98.1 98.0 98.0 98.1 98.0 Pulse 64 66 58 58 Resp 20 20 20 B/P (MAP) 139/64 (89) 136/68 (90) 142/63 (89) 142/63 Pulse Ox 95 96 96 O2 Delivery Room Air Room Air Room Air 08/29/19 08:38 Pulse 58 B/P (MAP) 142/63 Intake and Output 08/28/19 08/28/19 08/29/19 15:00 23:00 07:00 Intake Total 600 ml 250 ml Output Total 550 ml 500 ml 300 ml Balance 50 ml -250 ml -300 ml Justicifation of Admission Dx: Justifications for Admission: Justification of Admission Dx: Yes LARA MERAZ MD Aug 29, 2019 08:52
--- NOTE | 2019-08-29 10:37 | PDOC ---
Infectious Disease Note Subjective: Subjective Patient remains confused 2 daughters at bedside Vital Signs: Vital Signs Vital Signs Date Time Temp Pulse Resp B/P (MAP) Pulse Ox O2 Delivery O2 Flow Rate FiO2 08/29/19 08:38 58 142/63 08/29/19 08:00 Room Air 08/29/19 07:47 98.0 20 96 98.0 Physical Exam: PHYSICAL EXAM GENERAL: Awake, alert, confused HEENT: Normal conjunctivae. Oropharynx pink and moist, no thrush. NECK: Supple. LUNGS: Clear to auscultation. No accessory muscle use. HEART: S1, S2. ABDOMEN: Obese, soft, nontender with bowel sounds present. Mcknight in place EXTREMITIES: Chronic venous dermatitis and several ulcerations and weeping. Erythema resolved, no cyanosis. SKIN: Warm to touch. No signs of rash. NEUROLOGIC: Alert , awake more confused today Medications: Inpatient Meds: Current Medications Medications (Trade) Dose Ordered Sig/Harmeet Start Time Stop Time Status Last Admin Dose Admin Acetaminophen/ Hydrocodone Bitart (Lortab 5/325) 1 tab PRN Q4HRS PRN 08/24/19 10:00 08/28/19 17:38 1 TAB Aspirin (Ecotrin) 81 mg DAILYWBKFT 08/27/19 12:00 08/29/19 08:38 81 MG Bisacodyl (Dulcolax Tab) 5 mg PRN TID PRN 08/24/19 12:15 Carvedilol (Coreg) 12.5 mg BIDWMEALS 08/28/19 17:00 08/29/19 08:38 12.5 MG Cefepime HCl (Maxipime) 1 gm Q12HR 08/26/19 13:00 08/29/19 08:37 1 GM Ceftriaxone Sodium (Rocephin) 1 gm Q24H 08/24/19 12:00 08/26/19 11:43 DC 08/25/19 12:51 1 GM Cetirizine HCl (ZyrTEC) 10 mg DAILY 08/24/19 13:00 08/29/19 08:38 10 MG Daptomycin 360 mg/ Sodium Chloride 50 ml @ 100 mls/hr Q24H 08/28/19 13:00 08/28/19 13:45 100 MLS/HR Dextrose (Dextrose 50%-Water Syringe) 12.5 gm PRN Q15MIN PRN 08/24/19 12:30 Doxycycline Hyclate (Vibra-Tab) 100 mg BID 08/28/19 21:00 08/29/19 10:36 DC 08/29/19 08:38 100 MG Furosemide (Lasix) 20 mg DAILY 08/24/19 13:00 08/29/19 08:38 20 MG Gabapentin (Neurontin) 600 mg BID 08/24/19 21:00 08/29/19 08:38 600 MG Info (Anti-Coagulation Monitoring By Pharmacy) 1 each PRN DAILY PRN 08/24/19 12:30 08/27/19 12:56 1 EACH Insulin Glargine (Lantus Syringe) 35 unit DAILY08 08/25/19 08:00 08/24/19 12:38 DC Insulin Human Lispro (HumaLOG) 0-7 UNITS TIDWMEALS 08/24/19 13:00 08/29/19 08:41 3 UNITS Lactobacillus Rhamnosus (Culturelle) 1 cap BID 08/25/19 21:00 08/29/19 08:38 1 CAP Levofloxacin/ Dextrose 50 ml @ 50 mls/hr Q24H 08/24/19 21:00 08/24/19 11:32 DC Levofloxacin/ Dextrose (Levaquin Per Pharmacy) 1 each PRN DAILY PRN 08/23/19 20:30 Cancel Losartan Potassium (Cozaar) 25 mg DAILY 08/28/19 10:15 08/29/19 08:38 25 MG Magnesium Hydroxide (Milk Of Magnesia) 2,400 mg PRN DAILY PRN 08/24/19 12:18 Metoprolol Tartrate (Lopressor) 50 mg BID 08/24/19 21:00 08/28/19 10:10 DC 08/28/19 08:22 50 MG Polyethylene Glycol (miraLAX PACKET) 17 gm PRN DAILY PRN 08/24/19 12:15 Rivaroxaban (Xarelto) 20 mg DAILY16 08/24/19 16:00 08/28/19 17:38 20 MG Sodium Chloride 500 ml @ 500 mls/hr 1X ONCE 08/23/19 20:30 08/23/19 21:29 DC 08/23/19 21:28 500 MLS/HR Vancomycin HCl (Vanco Per Pharmacy) 1 each PRN DAILY PRN 08/23/19 20:30 08/24/19 11:21 DC 08/24/19 02:07 1 EACH Vancomycin HCl (Vancomycin Trough Level) 1 each 1X ONCE 08/25/19 21:30 08/25/19 21:31 Cancel Vancomycin HCl 1.5 gm/Sodium Chloride 500 ml @ 250 mls/hr Q24H 08/24/19 22:00 08/24/19 11:20 DC Vancomycin HCl 2 gm/Sodium Chloride 500 ml @ 250 mls/hr 1X ONCE 08/23/19 22:00 08/23/19 23:59 DC 08/23/19 22:00 250 MLS/HR Zinc Oxide (Zinc Oxide 20% Topical) 1 esther TID PRN 08/25/19 20:00 Labs: Lab Laboratory Tests Test 08/28/19 11:01 08/28/19 15:30 08/28/19 16:24 08/29/19 04:48 Glucose (Fingerstick) 257 mg/dL (70-99) 179 mg/dL (70-99) Creatine Kinase 101 U/L (39-308) 80 U/L (39-308) White Blood Count 5.1 x10^3/uL (4.0-11.0) Red Blood Count 3.07 x10^6/uL (4.30-5.70) Hemoglobin 8.6 g/dL (13.0-17.5) Hematocrit 26.7 % (39.0-53.0) Mean Corpuscular Volume 87 fL (79-100) Mean Corpuscular Hemoglobin 28 pg (25-35) Mean Corpuscular Hemoglobin Concent 32 g/dL (31-37) Red Cell Distribution Width 15.1 % (11.5-14.5) Platelet Count 292 x10^3/uL (140-400) Neutrophils (%) (Auto) 76 % (31-73) Lymphocytes (%) (Auto) 11 % (24-48) Monocytes (%) (Auto) 12 % (0-9) Eosinophils (%) (Auto) 0 % (0-3) Basophils (%) (Auto) 1 % (0-3) Neutrophils # (Auto) 3.9 x10^3/uL (1.8-7.7) Lymphocytes # (Auto) 0.6 x10^3/uL (1.0-4.8) Monocytes # (Auto) 0.6 x10^3/uL (0.0-1.1) Eosinophils # (Auto) 0.0 x10^3/uL (0.0-0.7) Basophils # (Auto) 0.0 x10^3/uL (0.0-0.2) Sodium Level 140 mmol/L (136-145) Potassium Level 3.8 mmol/L (3.5-5.1) Chloride Level 105 mmol/L (98-107) Carbon Dioxide Level 27 mmol/L (21-32) Anion Gap 8 (6-14) Blood Urea Nitrogen 19 mg/dL (8-26) Creatinine 1.2 mg/dL (0.7-1.3) Estimated GFR (Cockcroft-Gault) 57.7 BUN/Creatinine Ratio 16 (6-20) Glucose Level 221 mg/dL (70-99) Calcium Level 8.5 mg/dL (8.5-10.1) Total Bilirubin 0.5 mg/dL (0.2-1.0) Aspartate Amino Transf (AST/SGOT) 16 U/L (15-37) Alanine Aminotransferase (ALT/SGPT) 12 U/L (16-63) Alkaline Phosphatase 56 U/L (46-116) Total Protein 7.1 g/dL (6.4-8.2) Albumin 2.1 g/dL (3.4-5.0) Albumin/Globulin Ratio 0.4 (1.0-1.7) Test 08/29/19 08:12 Glucose (Fingerstick) 191 mg/dL (70-99) Objective: Assessment: Fever source likely lower extremity cellulitis resolved Cellulitis of lower extremities bilaterally., Cultures Proteus and PSAE, E. 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 AUGMENTIN AND ERYTHROMYCIN ALLERGY. Tolerating Rocephin well Acute kidney injury. Atrial fibrillation. Generalized weakness. Obesity. Urinary incontinence COVID negative Delirium Plan: Plan of Care DC cefepime and Dapto DC Mcknight if able Okay to discharge on Cipro and doxycycline, prescription in chart Local wound care as directed Maintain aspiration precautions Discussed with daughters at bedside Discussed with Dr. Butcher Discussed with nursing staff CHON WISDOM MD Aug 29, 2019 10:37
[2019-08-29 11:09] VITALS: BP 146/52
[2019-08-29] MEDS ORDERED: ASPI-886 PO (12:28)
[2019-08-29] MEDS ORDERED: CARV12.511 PO (12:28)
[2019-08-29] MEDS ORDERED: DOXY100C2 PO (12:28)
[2019-08-29] MEDS ORDERED: ZINC56.713 TP (12:28)
[2019-08-29] MEDS ORDERED: INSU100V41 SQ (12:28)
[2019-08-29] MEDS ORDERED: HYDR-2761 PO (12:28)
[2019-08-29] MEDS ORDERED: CIPR500T PO (12:28)
--- NOTE | 2019-08-29 12:29 | SNU/HH DC ---
DISCHARGE ORDERS DISCHARGE INFORMATION: DISCHARGE DATE: Aug 29, 2019 FINAL DIAGNOSIS Problems Medical Problems: (1) Cellulitis Status: Acute (2) Troponin level elevated Status: Acute CONDITION ON DISCHARGE: Stable CODE STATUS: Code Status: DNR/DNI PRISON: SNF STAY <30 DAYS: Yes POST DISCHARGE ORDERS: ACTIVITY ORDERS: Activity as tolerated WEIGHT BEARING STATUS: Full weight bearing DIET AFTER DISCHARGE: ADA CHECKS AFTER DISCHARGE: CHECKS AFTER DISCHARGE: Check blood press - daily, Check blood sugar, ac/hs, Weigh Yourself Daily TREATMENT/EQUIPMENT ORDERS: ADAPTIVE EQUIPMENT NEEDED: Front wheeled walker Physical Therapy For: Evalulation/Treatment Occupational Therapy For: Evaluation/Treatment DISCHARGE MEDICATIONS: Home Meds Active Scripts Ciprofloxacin Hcl (CIPROFLOXACIN HCL) 500 Mg Tablet, 1 TAB PO BID for Cellulitis for 5 Days, #10 TAB Prov:LARA MERAZ MD 08/29/19 Doxycycline Hyclate (DOXYCYCLINE HYCLATE) 100 Mg Capsule, 1 CAP PO BID for Cellulitis for 7 Days, #14 CAP Prov:LARA MERAZ MD 08/29/19 Zinc Oxide (ZINC OXIDE) 56.7 Gm Oint...g., 1 SHERON TP TID PRN for SKIN PROTECTION for 30 Days, #1 MISC Prov:LARA MERAZ MD 08/29/19 Hydrocodone Bit/Acetaminophen (HYDROCODONE-APAP 5-325 ) 1 Tab Tablet, 1 TAB PO PRN Q6HRS PRN for MODERATE PAIN for 6 Days, #15 TAB Prov:LARA MERAZ MD 08/29/19 Aspirin (ASPIRIN EC) 81 Mg Tablet.dr, 81 MG PO DAILYWBKFT for CAD for 30 Days, #30 TAB.SR 2 Refills Prov:LARA MERAZ MD 08/29/19 Carvedilol (CARVEDILOL ) 12.5 Mg Tablet, 12.5 MG PO BIDWMEALS for CHF/afib for 30 Days, #60 TAB 2 Refills Prov:LARA MERAZ MD 08/29/19 Insulin Aspart (Insulin Aspart) 100 Unit/1 Ml Vial, 0-9 UNIT SQ TIDAC for DM for 30 Days, #1 EACH Prov:LARA MERAZ MD 08/29/19 Reported Medications Rivaroxaban (XARELTO) 20 Mg Tablet, 1 TAB PO DAILY for blood thinner for 30 Days, #30 TAB 0 Refills with food 08/24/19 Nystatin (NYSTATIN) 15 Gm Cream..g., 1 SHERON TP BID for candiasis, #30 GM 08/24/19 Polyethylene Glycol 3350 (MIRALAX) 17 Gm Powd.pack, 1 PACKET PO DAILY PRN for CONSTIPATION for 2 Days, #2 PACKET 0 Refills dissolve in water 08/24/19 Magnesium Hydroxide (MILK OF MAGNESIA) 400 Mg/5 Ml Oral.susp, 400 MG PO DAILY PRN for CONSTIPATION, MISC 08/24/19 Menthol (BENGAY ULTRA STRENGTH) 1 Each Adh..patch, 1 EACH TP Q8HRS for knee p ain, PATCH 08/24/19 Losartan Potassium (LOSARTAN POTASSIUM) 100 Mg Tablet, 100 MG PO DAILY for HYPERTENSION, TAB 08/24/19 Insulin Glargine,Hum.rec.anlog (LANTUS) 100 Unit/1 Ml Vial, 37 UNIT SQ QHS for DM, VIAL 08/24/19 Gabapentin (GABAPENTIN) 600 Mg Tablet, 600 MG PO BID for NEUROGENIC PAIN, TAB 08/24/19 Furosemide (FUROSEMIDE) 20 Mg Tablet, 1 TAB PO DAILY for fluid retention, #90 TAB 1 Refill 08/24/19 [place]-3 Fatty Acids/Fish Oil (FISH OIL 1,000 MG SOFTGEL) 1 Each Capsule, 1 CAP PO BID for supplement for 30 Days, #60 CAP 0 Refills WITH MEALS 08/24/19 Cetirizine Hcl (CETIRIZINE HCL) 10 Mg Tablet, 1 TAB PO DAILY for allergies, #30 TAB 5 Refills 08/24/19 Bisacodyl (DULCOLAX) 5 Mg Tablet.dr, 1 TAB PO TID PRN for CONSTIPATION for 1 Day, #2 TAB 0 Refills 08/24/19 Discontinued Reported Medications Spironolactone (SPIRONOLACTONE) 25 Mg Tablet, 1 TAB PO DAILY for fluid retention, #90 TAB 1 Refill 08/24/19 Silver Sulfadiazine (SILVADENE) 20 Gm Cream..g., 1 SHERON TP DAILY for wounds for 7 Days, #50 GM 0 Refills apply to affected area(s) 08/24/19 Miconazole Nitrate (ANTI-FUNGAL CREAM) 113 Gm Cream..g., 1 SHERON TP BID for yeast in pannus for 14 Days, GM 0 Refills 08/24/19 Metoprolol Tartrate (METOPROLOL TARTRATE) 50 Mg Tablet, 1 TAB PO BID for htn, #60 TAB 5 Refills 08/24/19 Insulin Glargine,Hum.rec.anlog (LANTUS) 100 Unit/1 Ml Vial, 35 UNIT SQ DAILY08 for DM, VIAL 08/24/19 Fluconazole (FLUCONAZOLE) 200 Mg Tablet, 1 TAB PO QTU for fungal infection, #14 TAB 08/24/19 Discontinued Scripts Clindamycin Hcl (CLINDAMYCIN HCL) 300 Mg Capsule, 1 CAP PO TID, #21 CAP Prov:SKYLER HINKLE MD 03/11/19 LARA MERAZ MD Aug 29, 2019 12:29
--- NOTE | 2019-08-29 12:34 | PDOC3 ---
Discharge Summary Visit Information Date of Admission: Aug 23, 2019 Date of Discharge: Aug 29, 2019 Admitting Diagnosis: Cellulitis Final Diagnosis Problems Medical Problems: (1) Cellulitis Status: Acute (2) Troponin level elevated Status: Acute Brief Hospital Course Allergies Allergies Coded Allergies Type Severity Reaction Last Updated Verified fosinopril Allergy Severe 08/23/19 Yes amoxicillin Allergy Intermediate DIARRHEA AND VOMITING 08/29/19 Yes clavulanic acid Allergy Intermediate 08/23/19 Yes erythromycin base Allergy Intermediate 08/23/19 Yes metformin Allergy Intermediate 08/23/19 Yes niacin Allergy Intermediate 08/23/19 Yes pioglitazone Allergy Intermediate 08/23/19 Yes simvastatin Allergy Intermediate 08/23/19 Yes I S O L A T I O N *CONTACT* Allergy Unknown 08/29/19 Yes Vital Signs Vital Signs Date Time Temp Pulse Resp B/P (MAP) Pulse Ox O2 Delivery O2 Flow Rate FiO2 08/29/19 11:09 98.2 54 20 146/52 (83) 96 Room Air 98.2 Lab Results Laboratory Tests Test 08/27/19 16:37 08/27/19 20:06 08/28/19 07:36 08/28/19 11:01 Glucose (Fingerstick) 217 mg/dL (70-99) 224 mg/dL (70-99) 191 mg/dL (70-99) 257 mg/dL (70-99) Test 08/28/19 15:30 08/28/19 16:24 08/29/19 04:48 08/29/19 08:12 Creatine Kinase 101 U/L (39-308) 80 U/L (39-308) Glucose (Fingerstick) 179 mg/dL (70-99) 191 mg/dL (70-99) White Blood Count 5.1 x10^3/uL (4.0-11.0) Red Blood Count 3.07 x10^6/uL (4.30-5.70) Hemoglobin 8.6 g/dL (13.0-17.5) Hematocrit 26.7 % (39.0-53.0) Mean Corpuscular Volume 87 fL (79-100) Mean Corpuscular Hemoglobin 28 pg (25-35) Mean Corpuscular Hemoglobin Concent 32 g/dL (31-37) Red Cell Distribution Width 15.1 % (11.5-14.5) Platelet Count 292 x10^3/uL (140-400) Neutrophils (%) (Auto) 76 % (31-73) Lymphocytes (%) (Auto) 11 % (24-48) Monocytes (%) (Auto) 12 % (0-9) Eosinophils (%) (Auto) 0 % (0-3) Basophils (%) (Auto) 1 % (0-3) Neutrophils # (Auto) 3.9 x10^3/uL (1.8-7.7) Lymphocytes # (Auto) 0.6 x10^3/uL (1.0-4.8) Monocytes # (Auto) 0.6 x10^3/uL (0.0-1.1) Eosinophils # (Auto) 0.0 x10^3/uL (0.0-0.7) Basophils # (Auto) 0.0 x10^3/uL (0.0-0.2) Sodium Level 140 mmol/L (136-145) Potassium Level 3.8 mmol/L (3.5-5.1) Chloride Level 105 mmol/L (98-107) Carbon Dioxide Level 27 mmol/L (21-32) Anion Gap 8 (6-14) Blood Urea Nitrogen 19 mg/dL (8-26) Creatinine 1.2 mg/dL (0.7-1.3) Estimated GFR (Cockcroft-Gault) 57.7 BUN/Creatinine Ratio 16 (6-20) Glucose Level 221 mg/dL (70-99) Calcium Level 8.5 mg/dL (8.5-10.1) Total Bilirubin 0.5 mg/dL (0.2-1.0) Aspartate Amino Transf (AST/SGOT) 16 U/L (15-37) Alanine Aminotransferase (ALT/SGPT) 12 U/L (16-63) Alkaline Phosphatase 56 U/L (46-116) Total Protein 7.1 g/dL (6.4-8.2) Albumin 2.1 g/dL (3.4-5.0) Albumin/Globulin Ratio 0.4 (1.0-1.7) Test 08/29/19 11:48 Glucose (Fingerstick) 169 mg/dL (70-99) Laboratory Tests Test 08/28/19 15:30 08/28/19 16:24 08/29/19 04:48 08/29/19 08:12 Creatine Kinase 101 U/L (39-308) 80 U/L (39-308) Glucose (Fingerstick) 179 mg/dL (70-99) 191 mg/dL (70-99) White Blood Count 5.1 x10^3/uL (4.0-11.0) Red Blood Count 3.07 x10^6/uL (4.30-5.70) Hemoglobin 8.6 g/dL (13.0-17.5) Hematocrit 26.7 % (39.0-53.0) Mean Corpuscular Volume 87 fL (79-100) Mean Corpuscular Hemoglobin 28 pg (25-35) Mean Corpuscular Hemoglobin Concent 32 g/dL (31-37) Red Cell Distribution Width 15.1 % (11.5-14.5) Platelet Count 292 x10^3/uL (140-400) Neutrophils (%) (Auto) 76 % (31-73) Lymphocytes (%) (Auto) 11 % (24-48) Monocytes (%) (Auto) 12 % (0-9) Eosinophils (%) (Auto) 0 % (0-3) Basophils (%) (Auto) 1 % (0-3) Neutrophils # (Auto) 3.9 x10^3/uL (1.8-7.7) Lymphocytes # (Auto) 0.6 x10^3/uL (1.0-4.8) Monocytes # (Auto) 0.6 x10^3/uL (0.0-1.1) Eosinophils # (Auto) 0.0 x10^3/uL (0.0-0.7) Basophils # (Auto) 0.0 x10^3/uL (0.0-0.2) Sodium Level 140 mmol/L (136-145) Potassium Level 3.8 mmol/L (3.5-5.1) Chloride Level 105 mmol/L (98-107) Carbon Dioxide Level 27 mmol/L (21-32) Anion Gap 8 (6-14) Blood Urea Nitrogen 19 mg/dL (8-26) Creatinine 1.2 mg/dL (0.7-1.3) Estimated GFR (Cockcroft-Gault) 57.7 BUN/Creatinine Ratio 16 (6-20) Glucose Level 221 mg/dL (70-99) Calcium Level 8.5 mg/dL (8.5-10.1) Total Bilirubin 0.5 mg/dL (0.2-1.0) Aspartate Amino Transf (AST/SGOT) 16 U/L (15-37) Alanine Aminotransferase (ALT/SGPT) 12 U/L (16-63) Alkaline Phosphatase 56 U/L (46-116) Total Protein 7.1 g/dL (6.4-8.2) Albumin 2.1 g/dL (3.4-5.0) Albumin/Globulin Ratio 0.4 (1.0-1.7) Test 08/29/19 11:48 Glucose (Fingerstick) 169 mg/dL (70-99) Brief Hospital Course Mr Villalobos is an 84-year-old male, with past medical history of CAD, CHF, diabetes type 2, A. fib, who presents to the ED with generalized weakness for the last 2 weeks and is progressively gotten worse. Patient states that his weakness is mainly is is in his lower extremities and he does receive wound care for both of his legs due to venous insufficiency. Patient does suffer multiple wounds and possibly fungal infection that is also being treated by wound care. In the last couple days patient was not able to support his own weight and decided that he needed to be brought in. Patient resides at [facility] and feels that the care at [facility] is an adequate and would like to switch to a different location. Ultimately he would like to go home with home health and also receive physical therapy. Patient was tested negative for COVID recently patient does normally go to the NH for his wound care. Denies fevers, shortness of breath, chest pain, abdominal pain, diarrhea, bloody stools, hematuria. 08/24: Afebrile. He is worried about the time he and his are arrested and spent 3 days in group home. He is confused he knows he is confused. Has been urinating on himself and his legs and buttocks are moist. 08/25: Patient febrile today, 100.8 F. River catheter attempted to pass but is unable to patient does not wish for this. Barrier cream in place. Is excoriated on his buttocks. No shortness of breath or chest pain. COVID-19 initial test negative. 08/26: Afebrile. Uncomfortable with his leg straight. Wounds improved. He is still talking about being incarcerated, and confused. Wound culture with Pseudomonas, staph aureus, Proteus 08/27: Afebrile. Wounds improving. Echo reviewed with global hypokinesis and EF 40-45%. Afebrile. Wounds improving confusion is a little improved. Discussed with daughter at bedside he is not appropriate to go back to 5. Does need acute rehab. Changed to oral antibiotics doxycycline for 7 days and Cipro for 5 days. Consults: Cardiology, Nephrology, ID, podiatry Problem list: Mild cellulitis of lower extremities bilaterally. 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 Acute renal failure due to vasomotor nephropathy Atrial fibrillation chads vas score of greater than 4 currently on Xarelto Systolic CHF - will add ARB, change BB to carvedilol Troponinemia Severe malnutrition Debilitation Morbid obesity Generalized weakness. Confusion Urinary retention - river in place, will need voiding trial Greater than 30 minutes spent on discharge to acute rehab Discharge Information Condition at Discharge: Improved Follow Up: Weeks (1) Disposition/Orders: D/C to Another Facility Scheduled Aspirin (Aspirin Ec) 81 Mg Tablet.dr, 81 MG PO DAILYWBKFT for CAD for 30 Days, #30 Ref 2 Prescribed by: LARA MERAZ MD on 08/29/19 1228 Carvedilol (Carvedilol ) 12.5 Mg Tablet, 12.5 MG PO BIDWMEALS for CHF/afib for 30 Days, #60 Ref 2 Prescribed by: LARA MERAZ MD on 08/29/19 1228 Cetirizine Hcl (Cetirizine Hcl) 10 Mg Tablet, 1 TAB PO DAILY for allergies, #30 Ref 5 (Reported) Entered as Reported by: VAIBHAV ASHTON RN on 08/24/19 5897 Last Action: Continued on 08/24/19 1212 by VALERIA HERRON MD Ciprofloxacin Hcl (Ciprofloxacin Hcl) 500 Mg Tablet, 1 TAB PO BID for Cellulitis for 5 Days, #10 Prescribed by: LARA MERAZ MD on 08/29/19 1228 Doxycycline Hyclate (Doxycycline Hyclate) 100 Mg Capsule, 1 CAP PO BID for Cellulitis for 7 Days, #14 Prescribed by: LARA MERAZ MD on 08/29/19 1228 Furosemide (Furosemide) 20 Mg Tablet, 1 TAB PO DAILY for fluid retention, #90 Ref 1 (Reported) Entered as Reported by: VAIBHAV ASHTON RN on 08/24/19453 Last Action: Continued on 08/24/191211 by VALERIA HERRON MD Gabapentin (Gabapentin) 600 Mg Tablet, 600 MG PO BID for NEUROGENIC PAIN, (Reported) Entered as Reported by: VAIBHAV ASHTON RN on 08/24/19453 Last Action: Converted on 08/24/191211 by VALERIA HERRON MD Insulin Aspart (Insulin Aspart) 100 Unit/1 Ml Vial, 0-9 UNIT SQ TIDAC for DM for 30 Days, #1 Prescribed by: LARA MERAZ MD on 08/29/191227 Insulin Glargine,Hum.rec.anlog (Lantus) 100 Unit/1 Ml Vial, 37 UNIT SQ QHS for DM, (Reported) Entered as Reported by: VAIBHAV ASHTON RN on 08/24/19453 Last Action: Continued on 08/24/191234 by VALERIA HERRON MD Losartan Potassium (Losartan Potassium) 100 Mg Tablet, 100 MG PO DAILY for HYPERTENSION, (Reported) Entered as Reported by: VAIBHAV ASHTON RN on 08/24/19503 Last Action: New Order on 08/24/19503 by VAIBHAV ASHTON RN Menthol (Bengay Ultra Strength) 1 Each Adh..patch, 1 EACH TP Q8HRS for knee pain, (Reported) Entered as Reported by: VAIBHAV ASHTON RN on 08/24/19503 Last Action: New Order on 08/24/19503 by VAIBHAV ASHTON RN Nystatin (Nystatin) 15 Gm Cream..g., 1 SHERON TP BID for candiasis, #30 (Reported) Entered as Reported by: VAIBHAV ASHTON RN on 08/24/19503 Last Action: HELD on 08/24/191211 by VALERIA HERRON MD [place]-3 Fatty Acids/Fish Oil (Fish Oil 1,000 Mg Softgel) 1 Each Capsule, 1 CAP PO BID for supplement for 30 Days, #60 Ref 0 (Reported) WITH MEALS Entered as Reported by: VAIBHAV ASHTON RN on 08/24/19453 Last Action: New Order on 08/24/19453 by VAIBHAV ASHTON RN Rivaroxaban (Xarelto) 20 Mg Tablet, 1 TAB PO DAILY for blood thinner for 30 Days, #30 Ref 0 (Reported) with food Entered as Reported by: VAIBHAV ASHTON RN on 08/24/19503 Last Action: Converted on 08/24/191211 by VALERIA HERRON MD Scheduled PRN Bisacodyl (Dulcolax) 5 Mg Tablet.dr, 1 TAB PO TID PRN for CONSTIPATION for 1 Days, #2 Ref 0 (Reported) Entered as Reported by: VAIBHAV ASHTON RN on 08/24/19436 Last Action: Continued on 08/24/191211 by VALERIA HERRON MD Hydrocodone Bit/Acetaminophen (Hydrocodone-Apap 5-325 ) 1 Tab Tablet, 1 TAB PO PRN Q6HRS PRN for MODERATE PAIN for 6 Days, #15 Prescribed by: LARA MERAZ MD on 08/29/19 1228 Magnesium Hydroxide (Milk Of Magnesia) 400 Mg/5 Ml Oral.susp, 400 MG PO DAILY PRN for CONSTIPATION, (Reported) Entered as Reported by: VAIBHAV ASHTON RN on 08/24/19503 Last Action: Continued on 08/24/191211 by VALERIA HERRON MD Polyethylene Glycol 3350 (Miralax) 17 Gm Powd.pack, 1 PACKET PO DAILY PRN for CONSTIPATION for 2 Days, #2 Ref 0 (Reported) dissolve in water Entered as Reported by: VAIBHAV ASHTON RN on 08/24/19503 Last Action: Continued on 08/24/191211 by VALERIA HERRON MD Zinc Oxide (Zinc Oxide) 56.7 Gm Oint...g., 1 SHERON TP TID PRN for SKIN PROTECTION for 30 Days, #1 Prescribed by: LARA MERAZ MD on 08/29/19 1228 Discontinued Medications Clindamycin Hcl (Clindamycin Hcl) 300 Mg Capsule, 1 CAP PO TID, #21 Prescribed by: SKYLER HINKLE MD on 03/11/19 1722 Fluconazole (Fluconazole) 200 Mg Tablet, 1 TAB PO QTU for fungal infection, #14 (Reported) Entered as Reported by: VAIBHAV ASHTON RN on 08/24/19453 Last Action: New Order on 08/24/19453 by VAIBHAV ASHTON RN Insulin Glargine,Hum.rec.anlog (Lantus) 100 Unit/1 Ml Vial, 35 UNIT SQ DAILY08 for DM, (Reported) Entered as Reported by: VAIBHAV ASHTON RN on 08/24/19453 Last Action: Continued on 08/24/191234 by VALERIA HERRON MD Metoprolol Tartrate (Metoprolol Tartrate) 50 Mg Tablet, 1 TAB PO BID for htn, #60 Ref 5 (Reported) Entered as Reported by: VAIBHAV ASHTON RN on 08/24/19503 Last Action: Continued on 08/24/191211 by VALERIA HERRON MD Miconazole Nitrate (Anti-Fungal Cream) 113 Gm Cream..g., 1 SEHRON TP BID for yeast in pannus for 14 Days, Ref 0 (Reported) Entered as Reported by: VAIBHAV ASHTON RN on 08/24/19503 Last Action: HELD on 08/24/191211 by VALERIA HERRON MD Silver Sulfadiazine (Silvadene) 20 Gm Cream..g., 1 SHERON TP DAILY for wounds for 7 Days, #50 Ref 0 (Reported) apply to affected area(s) Entered as Reported by: VAIBHAV ASHTON RN on 08/24/19503 Last Action: HELD on 08/24/191211 by VALERIA HERRON MD Spironolactone (Spironolactone) 25 Mg Tablet, 1 TAB PO DAILY for fluid retention, #90 Ref 1 (Reported) Entered as Reported by: VAIBHAV ASHTON RN on 08/24/19503 Last Action: HELD on 08/24/191211 by VALERIA HERRON MD Justicifation of Admission Dx: Justifications for Admission: Justification of Admission Dx: Yes LARA MERAZ MD Aug 29, 2019 12:34
[2019-08-29] MEDS ORDERED: FUROSEMIDE 40 MG TABLET. PO PRN (12:45)
--- NOTE | 2019-08-29 12:46 | PDOC ---
CARDIO Progress Notes Date and Time Date of Service 08/29/2019 Time of Evaluation 1140 Subjective Subjective: No Chest Pain, No shortness of breath, No Palpitations Vitals Vitals Vital Signs Date Time Temp Pulse Resp B/P (MAP) Pulse Ox O2 Delivery O2 Flow Rate FiO2 08/29/19 11:09 98.2 54 20 146/52 (83) 96 Room Air 98.2 Weight Weight [ ] Input and Output Intake and Output Intake and Output 08/29/19 07:00 Intake Total 850 ml Output Total 1350 ml Balance -500 ml Intake Oral 850 ml Output Urine Total 1350 ml Laboratory Labs Laboratory Tests Test 08/28/19 15:30 08/28/19 16:24 08/29/19 04:48 08/29/19 08:12 Creatine Kinase 101 U/L (39-308) 80 U/L (39-308) Glucose (Fingerstick) 179 mg/dL (70-99) 191 mg/dL (70-99) White Blood Count 5.1 x10^3/uL (4.0-11.0) Red Blood Count 3.07 x10^6/uL (4.30-5.70) Hemoglobin 8.6 g/dL (13.0-17.5) Hematocrit 26.7 % (39.0-53.0) Mean Corpuscular Volume 87 fL (79-100) Mean Corpuscular Hemoglobin 28 pg (25-35) Mean Corpuscular Hemoglobin Concent 32 g/dL (31-37) Red Cell Distribution Width 15.1 % (11.5-14.5) Platelet Count 292 x10^3/uL (140-400) Neutrophils (%) (Auto) 76 % (31-73) Lymphocytes (%) (Auto) 11 % (24-48) Monocytes (%) (Auto) 12 % (0-9) Eosinophils (%) (Auto) 0 % (0-3) Basophils (%) (Auto) 1 % (0-3) Neutrophils # (Auto) 3.9 x10^3/uL (1.8-7.7) Lymphocytes # (Auto) 0.6 x10^3/uL (1.0-4.8) Monocytes # (Auto) 0.6 x10^3/uL (0.0-1.1) Eosinophils # (Auto) 0.0 x10^3/uL (0.0-0.7) Basophils # (Auto) 0.0 x10^3/uL (0.0-0.2) Sodium Level 140 mmol/L (136-145) Potassium Level 3.8 mmol/L (3.5-5.1) Chloride Level 105 mmol/L (98-107) Carbon Dioxide Level 27 mmol/L (21-32) Anion Gap 8 (6-14) Blood Urea Nitrogen 19 mg/dL (8-26) Creatinine 1.2 mg/dL (0.7-1.3) Estimated GFR (Cockcroft-Gault) 57.7 BUN/Creatinine Ratio 16 (6-20) Glucose Level 221 mg/dL (70-99) Calcium Level 8.5 mg/dL (8.5-10.1) Total Bilirubin 0.5 mg/dL (0.2-1.0) Aspartate Amino Transf (AST/SGOT) 16 U/L (15-37) Alanine Aminotransferase (ALT/SGPT) 12 U/L (16-63) Alkaline Phosphatase 56 U/L (46-116) Total Protein 7.1 g/dL (6.4-8.2) Albumin 2.1 g/dL (3.4-5.0) Albumin/Globulin Ratio 0.4 (1.0-1.7) Test 08/29/19 11:48 Glucose (Fingerstick) 169 mg/dL (70-99) Microbiology Micro Microbiology 08/26/19 Urine Culture - Final, Complete 08/26/19 Blood Culture - Preliminary, Resulted NO GROWTH AFTER 2 DAYS 08/23/19 Gram Stain - Final, Resulted 08/23/19 Aerobic Culture - Preliminary, Resulted 08/23/19 Antimicrobic Susceptibility - Preliminary, Resulted Review of Systems Constitutional: yes: other (CONFUSED) Physical Exam HEENT: Neck Supple W Full Motion Chest: Symmetric LUNGS: Other (diminished ) Heart: RRR (not on tele.) Abdomen: Other (obese) Extremities: Other (1+ bilateral Le pitting edema) Neurology: alert, follow commands, other (periods of confusion) Assessment Assessment 1. Generalized weakness, debilitation 2. Bilateral LE cellulitis, chronic venous stasis/ulcers 3. RUSS; resolved 4. H/o CAD; details unknown 5. Mild trop elevation; peak 0.148. Most probably type II, demand ischemia secondary to above.. 6. Hypertension; controlled 7. Diabetes, II 8. 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 PAFIB; presently with regular pulse rate, not on tele. EKG reviewed Recommendations 1. Continue with secondary prevention measures. HF regimen. Lasix daily and PRN 2. Continue coreg and losartan. 3. Xarelto for stroke prevention 4. Continue antibiotic therapy as per ID 5. 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
--- NOTE | 2019-08-29 12:53 | NUR ---
ERIC following. Reviewed chart and spoke with RN. Discharge plan remains acute rehab. Pt has been accepted clinically at [facility]. ERIC phoned and faxed updated clinicals to Musa at [facility]. ERIC spoke with both Musa and Mariela to let them know that pt is ready for discharge pending insurance authorization. ERIC to continue following. Addendum: 08/29/19 at 1639 by INES REYES Pt's insurance denied acute rehab. ERIC spoke with juan who wants a referral to [facility]. ERIC completed Patient Choice of Vendor Form. ERIC faxed referral to Mary Lou at [facility], , (fax). ERIC to continue following.
[2019-08-29] MEDS: ANTI-COAG MONITOR BY PHARMACY. MC PRN (13:41)
[2019-08-29 15:00] VITALS: BP 136/51
[2019-08-29] MEDS: RIVAROXABAN 10 MG TABLET. PO SCH (17:53)
[2019-08-29 19:19] VITALS: BP 105/55
[2019-08-29] MEDS: INSULIN GLARGINE SYRINGE. SQ SCH (21:22)
[2019-08-29 23:55] VITALS: BP 148/59
[2019-08-30] MEDS: HYDROcodone/APAP 5/325MG 1 TAB TABLET PO PRN ×2 (03:09→08:32)
[2019-08-30 03:42] VITALS: BP 155/81
[2019-08-30 07:00] VITALS: BP 130/56
--- NOTE | 2019-08-30 08:28 | PDOC ---
Infectious Disease Note Subjective: Subjective Patient more alert today Denies any complaints Vital Signs: Vital Signs Vital Signs Date Time Temp Pulse Resp B/P (MAP) Pulse Ox O2 Delivery O2 Flow Rate FiO2 08/30/19 07:00 97.7 64 20 130/56 (80) 95 Room Air 97.7 Physical Exam: PHYSICAL EXAM GENERAL: Awake, alert, less confused HEENT: Normal conjunctivae. Oropharynx pink and moist, no thrush. NECK: Supple. LUNGS: Clear to auscultation. No accessory muscle use. HEART: S1, S2. ABDOMEN: Obese, soft, nontender with bowel sounds present. Mcknight in place EXTREMITIES: Chronic venous dermatitis and several ulcerations and weeping. Erythema resolved, no cyanosis. SKIN: Warm to touch. No signs of rash. NEUROLOGIC: Alert , awake less confused Medications: Inpatient Meds: Current Medications Medications (Trade) Dose Ordered Sig/Harmeet Start Time Stop Time Status Last Admin Dose Admin Acetaminophen/ Hydrocodone Bitart (Lortab 5/325) 1 tab PRN Q4HRS PRN 08/24/19 10:00 08/30/19 03:09 1 TAB Aspirin (Ecotrin) 81 mg DAILYWBKFT 08/27/19 12:00 08/29/19 08:38 81 MG Bisacodyl (Dulcolax Tab) 5 mg PRN TID PRN 08/24/19 12:15 08/29/19 21:16 5 MG Carvedilol (Coreg) 12.5 mg BIDWMEALS 08/28/19 17:00 08/29/19 17:53 12.5 MG Cefepime HCl (Maxipime) 1 gm Q12HR 08/26/19 13:00 08/29/19 11:57 DC 08/29/19 08:37 1 GM Ceftriaxone Sodium (Rocephin) 1 gm Q24H 08/24/19 12:00 08/26/19 11:43 DC 08/25/19 12:51 1 GM Cetirizine HCl (ZyrTEC) 10 mg DAILY 08/24/19 13:00 08/29/19 08:38 10 MG Daptomycin 360 mg/ Sodium Chloride 50 ml @ 100 mls/hr Q24H 08/28/19 13:00 08/29/19 11:57 DC 08/28/19 13:45 100 MLS/HR Dextrose (Dextrose 50%-Water Syringe) 12.5 gm PRN Q15MIN PRN 08/24/19 12:30 Doxycycline Hyclate (Vibra-Tab) 100 mg BID 08/28/19 21:00 08/29/19 10:36 DC 08/29/19 08:38 100 MG Furosemide (Lasix) 40 mg PRN DAILY PRN 08/29/19 12:45 Gabapentin (Neurontin) 600 mg BID 08/24/19 21:00 08/29/19 21:16 600 MG Info (Anti-Coagulation Monitoring By Pharmacy) 1 each PRN DAILY PRN 08/24/19 12:30 08/29/19 13:41 1 EACH Insulin Glargine (Lantus Syringe) 35 unit DAILY08 08/25/19 08:00 08/24/19 12:38 DC Insulin Human Lispro (HumaLOG) 0-7 UNITS TIDWMEALS 08/24/19 13:00 08/29/19 17:56 3 UNITS Lactobacillus Rhamnosus (Culturelle) 1 cap BID 08/25/19 21:00 08/29/19 21:16 1 CAP Levofloxacin/ Dextrose 50 ml @ 50 mls/hr Q24H 08/24/19 21:00 08/24/19 11:32 DC Levofloxacin/ Dextrose (Levaquin Per Pharmacy) 1 each PRN DAILY PRN 08/23/19 20:30 Cancel Losartan Potassium (Cozaar) 25 mg DAILY 08/28/19 10:15 08/29/19 08:38 25 MG Magnesium Hydroxide (Milk Of Magnesia) 2,400 mg PRN DAILY PRN 08/24/19 12:18 Metoprolol Tartrate (Lopressor) 50 mg BID 08/24/19 21:00 08/28/19 10:10 DC 08/28/19 08:22 50 MG Polyethylene Glycol (miraLAX PACKET) 17 gm PRN DAILY PRN 08/24/19 12:15 Rivaroxaban (Xarelto) 20 mg DAILY16 08/24/19 16:00 08/29/19 17:53 20 MG Sodium Chloride 500 ml @ 500 mls/hr 1X ONCE 08/23/19 20:30 08/23/19 21:29 DC 08/23/19 21:28 500 MLS/HR Vancomycin HCl (Vanco Per Pharmacy) 1 each PRN DAILY PRN 08/23/19 20:30 08/24/19 11:21 DC 08/24/19 02:07 1 EACH Vancomycin HCl (Vancomycin Trough Level) 1 each 1X ONCE 08/25/19 21:30 08/25/19 21:31 Cancel Vancomycin HCl 1.5 gm/Sodium Chloride 500 ml @ 250 mls/hr Q24H 08/24/19 22:00 08/24/19 11:20 DC Vancomycin HCl 2 gm/Sodium Chloride 500 ml @ 250 mls/hr 1X ONCE 08/23/19 22:00 08/23/19 23:59 DC 08/23/19 22:00 250 MLS/HR Zinc Oxide (Zinc Oxide 20% Topical) 1 esther TID PRN 08/25/19 20:00 Labs: Lab Laboratory Tests Test 08/29/19 11:48 08/29/19 17:08 08/29/19 20:09 08/30/19 07:29 Glucose (Fingerstick) 169 mg/dL (70-99) 172 mg/dL (70-99) 198 mg/dL (70-99) 161 mg/dL (70-99) Objective: Assessment: Fever source likely lower extremity cellulitis resolved Cellulitis of lower extremities bilaterally., Cultures Proteus and PSAE, E. 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 AUGMENTIN AND ERYTHROMYCIN ALLERGY. Tolerating Rocephin well Acute kidney injury. Atrial fibrillation. Generalized weakness. Obesity. Urinary incontinence COVID negative Delirium Plan: Plan of Care Cipro and doxycycline, prescription in chart Local wound care as directed Maintain aspiration precautions CHON WISDOM MD Aug 30, 2019 08:28
[2019-08-30] MEDS: FUROSEMIDE 20 MG TABLET PO SCH (08:30)
[2019-08-30] MEDS: ASPIRIN ENTERIC COATED 81 MG TABLET.DR. PO SCH (08:30)
[2019-08-30] MEDS: LACTOBACILLUS RHAMNOSUS GG 1 CAPSULE. PO SCH ×2 (08:30→22:19)
[2019-08-30] MEDS: CETIRIZINE HCL 10 MG TABLET. PO SCH (08:30)
[2019-08-30] MEDS: GABAPENTIN 300 MG CAPSULE. PO SCH ×2 (08:30→22:19)
[2019-08-30] MEDS: LOSARTAN POTASSIUM 25 MG TABLET. PO SCH (08:31)
[2019-08-30] MEDS: INSULIN LISPRO 300 UNITS/3 ML VIAL. SQ SCH ×3 (08:43→17:15)
--- NOTE | 2019-08-30 09:02 | PDOC ---
PROGRESS NOTES Chief Complaint Chief Complaint A/P: Mild cellulitis of lower extremities bilaterally. 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 Acute renal failure due to vasomotor nephropathy Atrial fibrillation chads vas score of greater than 4 currently on Xarelto Systolic CHF - will add ARB, change BB to carvedilol Troponinemia Severe malnutrition Debilitation Gait instability Morbid obesity Generalized weakness. Acute on chronic encephelopathy - likely metabolic from infection and chronic underlying PTSD Urinary retention - river in place, will need voiding trial History of Present Illness History of Present Illness Mr Villalobos is an 84-year-old male, with past medical history of CAD, CHF, diabetes type 2, A. fib, who presents to the ED with generalized weakness for the last 2 weeks and is progressively gotten worse. Patient states that his weakness is mainly is is in his lower extremities and he does receive wound care for both of his legs due to venous insufficiency. Patient does suffer multiple wounds and possibly fungal infection that is also being treated by wound care. In the last couple days patient was not able to support his own weight and decided that he needed to be brought in. Patient resides at [facility] and feels that the care at [facility] is an adequate and would like to switch to a different location. Ultimately he would like to go home with home health and also receive physical therapy. Patient was tested negative for COVID recently patient does normally go to the [place] for his wound care. Denies fevers, shortness of breath, chest pain, abdominal pain, diarrhea, bloody stools, hematuria. 08/24: Afebrile. He is worried about the time he and his are arrested and spent 3 days in assisted. He is confused he knows he is confused. Has been urinating on himself and his legs and buttocks are moist. 08/25: Patient febrile today, 100.8 F. River catheter attempted to pass but is unable to patient does not wish for this. Barrier cream in place. Is excoriated on his buttocks. No shortness of breath or chest pain. COVID-19 initial test negative. 08/26: Afebrile. Uncomfortable with his leg straight. Wounds improved. He is still talking about being incarcerated, and confused. Wound culture with Pseudomonas, staph aureus, Proteus 08/27: Afebrile. Wounds improving. Echo reviewed with global hypokinesis and EF 40-45%. 724: Afebrile. Wounds improving confusion is a little improved. Discussed with daughter at bedside he is not appropriate to go back to 5. Does need acute rehab. Changed to oral antibiotics doxycycline for 7 days and Cipro for 5 days. Confusion slightly improved. Still very weak, has changed to oral antibiotics with no adverse effects. No fevers. Still needs skilled rehab on discharge. Vitals Vitals Vital Signs Date Time Temp Pulse Resp B/P (MAP) Pulse Ox O2 Delivery O2 Flow Rate FiO2 08/30/19 08:32 95 Room Air 08/30/19 08:31 64 130/56 08/30/19 07:00 97.7 20 97.7 Physical Exam Physical Exam GENERAL: Awake, alert, confused HEENT: Normal conjunctivae. Oropharynx pink and moist, no thrush. NECK: Supple. LUNGS: Clear to auscultation. No accessory muscle use. HEART: S1, S2. ABDOMEN: Obese, soft, nontender with bowel sounds present. River in place EXTREMITIES: Chronic venous dermatitis and several ulcerations and weeping. Erythema resolved, no cyanosis. SKIN: Warm to touch. No signs of rash. NEUROLOGIC: Alert , awake more confused today General: mild distress Heart: Regular rate Abdomen: Normal bowel sounds Labs LABS Laboratory Tests Test 08/29/19 11:48 08/29/19 17:08 08/29/19 20:09 08/30/19 07:29 Glucose (Fingerstick) 169 mg/dL (70-99) 172 mg/dL (70-99) 198 mg/dL (70-99) 161 mg/dL (70-99) Assessment and Plan Assessmemt and Plan Problems Medical Problems: (1) Cellulitis Status: Acute (2) Troponin level elevated Status: Acute Comment Review of Relevant I have reviewed the following items rayshawn (where applicable) has been applied. Labs Laboratory Tests Test 08/28/19 11:01 08/28/19 15:30 08/28/19 16:24 08/29/19 04:48 Glucose (Fingerstick) 257 mg/dL (70-99) 179 mg/dL (70-99) Creatine Kinase 101 U/L (39-308) 80 U/L (39-308) White Blood Count 5.1 x10^3/uL (4.0-11.0) Red Blood Count 3.07 x10^6/uL (4.30-5.70) Hemoglobin 8.6 g/dL (13.0-17.5) Hematocrit 26.7 % (39.0-53.0) Mean Corpuscular Volume 87 fL (79-100) Mean Corpuscular Hemoglobin 28 pg (25-35) Mean Corpuscular Hemoglobin Concent 32 g/dL (31-37) Red Cell Distribution Width 15.1 % (11.5-14.5) Platelet Count 292 x10^3/uL (140-400) Neutrophils (%) (Auto) 76 % (31-73) Lymphocytes (%) (Auto) 11 % (24-48) Monocytes (%) (Auto) 12 % (0-9) Eosinophils (%) (Auto) 0 % (0-3) Basophils (%) (Auto) 1 % (0-3) Neutrophils # (Auto) 3.9 x10^3/uL (1.8-7.7) Lymphocytes # (Auto) 0.6 x10^3/uL (1.0-4.8) Monocytes # (Auto) 0.6 x10^3/uL (0.0-1.1) Eosinophils # (Auto) 0.0 x10^3/uL (0.0-0.7) Basophils # (Auto) 0.0 x10^3/uL (0.0-0.2) Sodium Level 140 mmol/L (136-145) Potassium Level 3.8 mmol/L (3.5-5.1) Chloride Level 105 mmol/L (98-107) Carbon Dioxide Level 27 mmol/L (21-32) Anion Gap 8 (6-14) Blood Urea Nitrogen 19 mg/dL (8-26) Creatinine 1.2 mg/dL (0.7-1.3) Estimated GFR (Cockcroft-Gault) 57.7 BUN/Creatinine Ratio 16 (6-20) Glucose Level 221 mg/dL (70-99) Calcium Level 8.5 mg/dL (8.5-10.1) Total Bilirubin 0.5 mg/dL (0.2-1.0) Aspartate Amino Transf (AST/SGOT) 16 U/L (15-37) Alanine Aminotransferase (ALT/SGPT) 12 U/L (16-63) Alkaline Phosphatase 56 U/L (46-116) Total Protein 7.1 g/dL (6.4-8.2) Albumin 2.1 g/dL (3.4-5.0) Albumin/Globulin Ratio 0.4 (1.0-1.7) Test 08/29/19 08:12 08/29/19 11:48 08/29/19 17:08 08/29/19 20:09 Glucose (Fingerstick) 191 mg/dL (70-99) 169 mg/dL (70-99) 172 mg/dL (70-99) 198 mg/dL (70-99) Test 08/30/19 07:29 Glucose (Fingerstick) 161 mg/dL (70-99) Laboratory Tests Test 08/29/19 11:48 08/29/19 17:08 08/29/19 20:09 08/30/19 07:29 Glucose (Fingerstick) 169 mg/dL (70-99) 172 mg/dL (70-99) 198 mg/dL (70-99) 161 mg/dL (70-99) Microbiology 08/26/19 Urine Culture - Final, Complete 08/26/19 Blood Culture - Preliminary, Resulted NO GROWTH AFTER 3 DAYS 08/23/19 Gram Stain - Final, Complete 08/23/19 Aerobic Culture - Final, Complete 08/23/19 Antimicrobic Susceptibility - Final, Complete Medications Current Medications Vancomycin HCl (Vanco Per Pharmacy) 1 each PRN DAILY PRN MC SEE COMMENTS Last administered on 08/24/19at 02:07; Start 08/23/19 at 20:30; Stop 08/24/19 at 11:21; Status DC Levofloxacin/ Dextrose (Levaquin Per Pharmacy) 1 each PRN DAILY PRN MC SEE COMMENTS; Start 08/23/19 at 20:30; Status Cancel Sodium Chloride 500 ml @ 500 mls/hr 1X ONCE IV Last administered on 08/23/19at 21:28; Start 08/23/19 at 20:30; Stop 08/23/19 at 21:29; Status DC Levofloxacin/ Dextrose 150 ml @ 100 mls/hr 1X ONCE IV Last administered on 08/23/19at 21:28; Start 08/23/19 at 21:00; Stop 08/23/19 at 22:29; Status DC Vancomycin HCl 2 gm/Sodium Chloride 500 ml @ 250 mls/hr 1X ONCE IV Last administered on 08/23/19at 22:00; Start 08/23/19 at 22:00; Stop 08/23/19 at 23:59; Status DC Rivaroxaban (Xarelto) 15 mg 1X ONCE PO Last administered on 08/23/19at 22:48; Start 08/23/19 at 22:00; Stop 08/23/19 at 22:01; Status DC Cefepime HCl (Maxipime) 1 gm 1X ONCE IVP Last administered on 08/23/19at 22:48; Start 08/23/19 at 22:30; Stop 08/23/19 at 22:31; Status DC Levofloxacin/ Dextrose 50 ml @ 50 mls/hr Q24H IV ; Start 08/24/19 at 21:00; Stop 08/24/19 at 11:32; Status DC Vancomycin HCl 1.5 gm/Sodium Chloride 500 ml @ 250 mls/hr Q24H IV ; Start 08/24/19 at 22:00; Stop 08/24/19 at 11:20; Status DC Vancomycin HCl (Vancomycin Trough Level) 1 each 1X ONCE MC ; Start 08/25/19 at 21:30; Stop 08/25/19 at 21:31; Status Cancel Acetaminophen/ Hydrocodone Bitart (Lortab 5/325) 1 tab PRN Q4HRS PRN PO MODERATE PAIN Last administered on 08/30/19at 08:32; Start 08/24/19 at 10:00 Ceftriaxone Sodium (Rocephin) 1 gm Q24H IVP Last administered on 08/25/19at 12:51; Start 08/24/19 at 12:00; Stop 08/26/19 at 11:43; Status DC Bisacodyl (Dulcolax Tab) 5 mg PRN TID PRN PO CONSTIPATION 1ST CHOICE Last administered on 08/29/19 21:16; Start 08/24/19 at 12:15 Cetirizine HCl (ZyrTEC) 10 mg DAILY PO Last administered on 08/30/19 08:30; Start 08/24/19 at 13:00 Furosemide (Lasix) 20 mg DAILY PO Last administered on 08/30/19 08:30; Start 08/24/19 at 13:00 Magnesium Hydroxide (Milk Of Magnesia) 400 mg PRN DAILY PRN PO CONSTIPATION; Start 08/24/19 at 12:15; Stop 08/24/19 at 12:18; Status DC Metoprolol Tartrate (Lopressor) 50 mg BID PO Last administered on 08/28/19at 08:22; Start 08/24/19 at 21:00; Stop 08/28/19 at 10:10; Status DC Polyethylene Glycol (miraLAX PACKET) 17 gm PRN DAILY PRN PO CONSTIPATION 2ND CHOICE; Start 08/24/19 at 12:15 Gabapentin (Neurontin) 600 mg BID PO Last administered on 08/30/19 08:30; Start 08/24/19 at 21:00 Rivaroxaban (Xarelto) 20 mg DAILY16 PO Last administered on 08/29/19at 17:53; Start 08/24/19 at 16:00 Magnesium Hydroxide (Milk Of Magnesia) 2,400 mg PRN DAILY PRN PO CONSTIPATION, 3RD CHOICE; Start 08/24/19 at 12:18 Info (Anti-Coagulation Monitoring By Pharmacy) 1 each PRN DAILY PRN MC SEE C OMMENTS Last administered on 08/29/19at 13:41; Start 08/24/19 at 12:30 Insulin Human Lispro (HumaLOG) 0-7 UNITS TIDWMEALS SQ Last administered on 08/30/19at 08:43; Start 08/24/19 at 13:00 Dextrose (Dextrose 50%-Water Syringe) 12.5 gm PRN Q15MIN PRN IV SEE COMMENTS; Start 08/24/19 at 12:30 Insulin Glargine (Lantus Syringe) 37 unit QHS SQ Last administered on 08/29/19at 21:22; Start 08/24/19 at 21:00 Insulin Glargine (Lantus Syringe) 35 unit DAILY08 SQ ; Start 08/25/19 at 08:00; Stop 08/24/19 at 12:38; Status DC Lactobacillus Rhamnosus (Culturelle) 1 cap BID PO Last administered on 08/30/19at 08:30; Start 08/25/19 at 21:00 Zinc Oxide (Zinc Oxide 20% Topical) 1 agata TID PRN TP SKIN PROTECTION; Start 08/25/19 at 20:00 Cefepime HCl (Maxipime) 1 gm Q12HR IVP Last administered on 08/29/19at 08:37; Start 08/26/19 at 13:00; Stop 08/29/19 at 11:57; Status DC Aspirin (Ecotrin) 81 mg DAILYWBKFT PO Last administered on 08/30/19at 08:30; Start 08/27/19 at 12:00 Carvedilol (Coreg) 12.5 mg BIDWMEALS PO Last administered on 08/29/19at 17:53; Start 08/28/19 at 17:00 Losartan Potassium (Cozaar) 25 mg DAILY PO Last administered on 08/30/19at 08:31; Start 08/28/19 at 10:15 Daptomycin 360 mg/ Sodium Chloride 50 ml @ 100 mls/hr Q24H IV Last administered on 08/28/19at 13:45; Start 08/28/19 at 13:00; Stop 08/29/19 at 11:57; Status DC Doxycycline Hyclate (Vibra-Tab) 100 mg BID PO Last administered on 08/29/19at 08:38; Start 08/28/19 at 21:00; Stop 08/29/19 at 10:36; Status DC Furosemide (Lasix) 40 mg PRN DAILY PRN PO SEE COMMENTS; Start 08/29/19 at 12:45 Ciprofloxacin (Cipro) 500 mg BID PO ; Start 08/30/19 at 09:00 Active Scripts Active Ciprofloxacin Hcl 500 Mg Tablet 1 Tab PO BID 5 Days Doxycycline Hyclate 100 Mg Capsule 1 Cap PO BID 7 Days Zinc Oxide 56.7 Gm Oint...g. 1 Agata TP TID PRN 30 Days Hydrocodone-Apap 5-325 (Hydrocodone Bit/Acetaminophen) 1 Tab Tablet 1 Tab PO PRN Q6HRS PRN 6 Days Aspirin Ec (Aspirin) 81 Mg Tablet.dr 81 Mg PO DAILYWBKFT 30 Days Carvedilol (Carvedilol) 12.5 Mg Tablet 12.5 Mg PO BIDWMEALS 30 Days Insulin Aspart 100 Unit/1 Ml Vial 0-9 Unit SQ TIDAC 30 Days Reported Xarelto (Rivaroxaban) 20 Mg Tablet 1 Tab PO DAILY 30 Days with food Nystatin 15 Gm Cream..g. 1 Agata TP BID Miralax (Polyethylene Glycol 3350) 17 Gm Powd.pack 1 Packet PO DAILY PRN 2 Days dissolve in water Milk Of Magnesia (Magnesium Hydroxide) 400 Mg/5 Ml Oral.susp 400 Mg PO DAILY PRN Bengay Ultra Strength (Menthol) 1 Each Adh..patch 1 Each TP Q8HRS Losartan Potassium 100 Mg Tablet 100 Mg PO DAILY Lantus (Insulin Glargine,Hum.rec.anlog) 100 Unit/1 Ml Vial 37 Unit SQ QHS Gabapentin 600 Mg Tablet 600 Mg PO BID Furosemide 20 Mg Tablet 1 Tab PO DAILY Fish Oil 1,000 Mg Softgel (Essie-3 Fatty Acids/Fish Oil) 1 Each Capsule 1 Cap PO BID 30 Days WITH MEALS Cetirizine Hcl 10 Mg Tablet 1 Tab PO DAILY Dulcolax (Bisacodyl) 5 Mg Tablet.dr 1 Tab PO TID PRN 1 Days Vitals/I & O Vital Sign - Last 24 Hours 08/29/19 08/29/19 08/29/19 08/29/19 11:09 15:00 17:53 19:19 Temp 98.2 98.2 98.1 98.2 98.2 98.1 Pulse 54 66 66 62 Resp 20 20 16 B/P (MAP) 146/52 (83) 136/51 (79) 136/51 105/55 (72) Pulse Ox 96 97 96 O2 Delivery Room Air Room Air Room Air 08/29/19 08/29/19 08/30/19 08/30/19 20:00 23:55 03:09 03:42 Temp 98.3 98.2 98.3 98.2 Pulse 69 68 Resp 16 16 B/P (MAP) 148/59 (88) 155/81 (105) Pulse Ox 96 94 O2 Delivery Room Air Room Air Room Air Room Air 08/30/19 08/30/19 08/30/19 08/30/19 04:09 07:00 08:31 08:32 Temp 97.7 97.7 Pulse 64 64 Resp 20 B/P (MAP) 130/56 (80) 130/56 Pulse Ox 95 95 O2 Delivery Room Air Room Air Room Air Intake and Output 08/29/19 08/29/19 08/30/19 15:00 23:00 07:00 Intake Total 300 ml 200 ml Output Total 350 ml 150 ml 500 ml Balance -350 ml 150 ml -300 ml Justicifation of Admission Dx: Justifications for Admission: Justification of Admission Dx: Yes RIFFEL,CHRISTOPHER S MD Aug 30, 2019 09:02
[2019-08-30 11:20] VITALS: BP 124/61
[2019-08-30] MEDS: CARVEDILOL 12.5 MG TABLET. PO SCH ×2 (12:49→17:05)
[2019-08-30] MEDS: CIPROFLOXACIN HCL 250 MG TABLET. PO SCH ×2 (12:49→22:19)
[2019-08-30 14:58] VITALS: BP 126/68
[2019-08-30] MEDS: RIVAROXABAN 10 MG TABLET. PO SCH (17:05)
[2019-08-30 19:46] VITALS: BP 129/55
[2019-08-30] MEDS: INSULIN GLARGINE SYRINGE. SQ SCH (22:26)
[2019-08-30 23:07] VITALS: BP 171/84
[2019-08-31 03:12] VITALS: BP 147/62
[2019-08-31 07:00] VITALS: BP 150/100
[2019-08-31] MEDS: INSULIN LISPRO 300 UNITS/3 ML VIAL. SQ SCH ×3 (08:00→17:15)
--- NOTE | 2019-08-31 08:08 | PDOC ---
[employer] [facility] PROGRESS NOTE Chief Complaint Chief Complaint A/P: Mild cellulitis of lower extremities bilaterally. 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 Acute renal failure due to vasomotor nephropathy Atrial fibrillation chads vas score of greater than 4 currently on Xarelto Systolic CHF - will add ARB, change BB to carvedilol Troponinemia Severe malnutrition Debilitation Gait instability Morbid obesity Generalized weakness. Acute on chronic encephelopathy - likely metabolic from infection and chronic underlying PTSD Urinary retention - river out. Daily PVR History of Present Illness History of Present Illness Mr Villalobos is an 84-year-old male, with past medical history of CAD, CHF, diabetes type 2, A. fib, who presents to the ED with generalized weakness for the last 2 weeks and is progressively gotten worse. Patient states that his weakness is mainly is is in his lower extremities and he does receive wound care for both of his legs due to venous insufficiency. Patient does suffer multiple wounds and possibly fungal infection that is also being treated by wound care. In the last couple days patient was not able to support his own weight and decided that he needed to be brought in. Patient resides at [facility] and feels that the care at [facility] is an adequate and would like to switch to a different location. Ultimately he would like to go home with home health and also receive physical therapy. Patient was tested negative for COVID recently patient does normally go to the [place] for his wound care. Denies fevers, shortness of breath, chest pain, abdominal pain, diarrhea, bloody stools, hematuria. 08/24: Afebrile. He is worried about the time he and his are arrested and s pent 3 days in group home. He is confused he knows he is confused. Has been urinating on himself and his legs and buttocks are moist. 08/25: Patient febrile today, 100.8 F. River catheter attempted to pass but is unable to patient does not wish for this. Barrier cream in place. Is excoriated on his buttocks. No shortness of breath or chest pain. COVID-19 initial test negative. 08/26: Afebrile. Leg pain today. Wounds improved. He is still talking about being incarcerated, and confused. Wound culture with Pseudomonas, staph aureus, Proteus, e. coli 08/27: Afebrile. Wounds improving. Echo reviewed with global hypokinesis and EF 40-45%. 08/28: Afebrile. Wounds improving confusion is a little improved. Discussed with daughter at bedside he is not appropriate to go back to 5. Does need acute rehab. Changed to oral antibiotics doxycycline for 7 days and Cipro for 5 days. 08/29: Confusion slightly improved. Still very weak, has changed to oral antibiotics with no adverse effects. No fevers. Still needs skilled rehab on discharge. Afebrile. River catheter out. Tolerating oral antibiotics well. Confusion is improving. Still profoundly weak. Vitals/I&O Vitals/I&O: Vital Signs Date Time Temp Pulse Resp B/P (MAP) Pulse Ox O2 Delivery O2 Flow Rate FiO2 08/31/19 03:12 98.1 66 20 147/62 (90) 96 Room Air 98.1 I & O 08/30/19 08/30/19 08/31/19 15:00 23:00 07:00 Intake Total 500 ml 320 ml 400 ml Output Total 100 ml Balance 500 ml 220 ml 400 ml Physical Exam General: Alert, Oriented X3, Cooperative, No acute distress Heart: Regular rate Lungs: Clear Abdomen: Normal bowel sounds Extremities: No clubbing, No cyanosis Skin: Other (Stasis dermatitis, cellulitis) Labs Labs: Laboratory Tests Test 08/30/19 10:30 08/30/19 16:41 08/30/19 20:27 08/31/19 07:52 Glucose (Fingerstick) 163 mg/dL (70-99) 192 mg/dL (70-99) 216 mg/dL (70-99) 133 mg/dL (70-99) Assessment and Plan Assessmemt and Plan Problems Medical Problems: (1) Cellulitis Status: Acute (2) Troponin level elevated Status: Acute Comment Review of Relevant I have reviewed the following items rayshawn (where applicable) has been applied. Medications: Current Medications Medications (Trade) Dose Ordered Sig/Harmeet Route PRN Reason Start Time Stop Time Status Last Admin Dose Admin Ciprofloxacin (Cipro) 500 mg BID PO 08/30/19 09:00 08/30/19 22:19 Justicifation of Admission Dx: Justifications for Admission: Justification of Admission Dx: Yes LARA MERAZ MD Aug 31, 2019 08:08
[2019-08-31] MEDS: CIPROFLOXACIN HCL 250 MG TABLET. PO SCH ×2 (09:54→21:07)
[2019-08-31] MEDS: CETIRIZINE HCL 10 MG TABLET. PO SCH (09:54)
[2019-08-31] MEDS: CARVEDILOL 12.5 MG TABLET. PO SCH ×2 (09:54→17:09)
[2019-08-31] MEDS: ASPIRIN ENTERIC COATED 81 MG TABLET.DR. PO SCH (09:55)
[2019-08-31] MEDS: FUROSEMIDE 20 MG TABLET PO SCH (09:55)
[2019-08-31] MEDS: LOSARTAN POTASSIUM 25 MG TABLET. PO SCH (09:55)
[2019-08-31] MEDS: LACTOBACILLUS RHAMNOSUS GG 1 CAPSULE. PO SCH ×2 (09:55→21:07)
[2019-08-31] MEDS: GABAPENTIN 300 MG CAPSULE. PO SCH ×2 (09:55→21:07)
--- NOTE | 2019-08-31 10:01 | PDOC ---
Infectious Disease Note Subjective: Subjective Patient denies any complaints Vital Signs: Vital Signs Vital Signs Date Time Temp Pulse Resp B/P (MAP) Pulse Ox O2 Delivery O2 Flow Rate FiO2 08/31/19 09:55 63 150/100 08/31/19 07:00 98.3 18 98 Room Air 98.3 Physical Exam: PHYSICAL EXAM GENERAL: Awake, alert, less confused HEENT: Normal conjunctivae. Oropharynx pink and moist, no thrush. NECK: Supple. LUNGS: Clear to auscultation. No accessory muscle use. HEART: S1, S2. ABDOMEN: Obese, soft, nontender with bowel sounds present. Mcknight in place EXTREMITIES: Chronic venous dermatitis and several ulcerations and weeping. Erythema resolved, no cyanosis. SKIN: Warm to touch. No signs of rash. NEUROLOGIC: Alert , awake less confused Medications: Inpatient Meds: Current Medications Medications (Trade) Dose Ordered Sig/Harmeet Start Time Stop Time Status Last Admin Dose Admin Acetaminophen/ Hydrocodone Bitart (Lortab 5/325) 1 tab PRN Q4HRS PRN 08/24/19 10:00 08/30/19 08:32 1 TAB Aspirin (Ecotrin) 81 mg DAILYWBKFT 08/27/19 12:00 08/31/19 09:55 81 MG Bisacodyl (Dulcolax Tab) 5 mg PRN TID PRN 08/24/19 12:15 08/29/19 21:16 5 MG Carvedilol (Coreg) 12.5 mg BIDWMEALS 08/28/19 17:00 08/31/19 09:54 12.5 MG Cefepime HCl (Maxipime) 1 gm Q12HR 08/26/19 13:00 08/29/19 11:57 DC 08/29/19 08:37 1 GM Ceftriaxone Sodium (Rocephin) 1 gm Q24H 08/24/19 12:00 08/26/19 11:43 DC 08/25/19 12:51 1 GM Cetirizine HCl (ZyrTEC) 10 mg DAILY 08/24/19 13:00 08/31/19 09:54 10 MG Ciprofloxacin (Cipro) 500 mg BID 08/30/19 09:00 08/31/19 09:54 500 MG Daptomycin 360 mg/ Sodium Chloride 50 ml @ 100 mls/hr Q24H 08/28/19 13:00 08/29/19 11:57 DC 08/28/19 13:45 100 MLS/HR Dextrose (Dextrose 50%-Water Syringe) 12.5 gm PRN Q15MIN PRN 08/24/19 12:30 Doxycycline Hyclate (Vibra-Tab) 100 mg BID 08/28/19 21:00 08/29/19 10:36 DC 08/29/19 08:38 100 MG Furosemide (Lasix) 40 mg PRN DAILY PRN 08/29/19 12:45 Gabapentin (Neurontin) 600 mg BID 08/24/19 21:00 08/31/19 09:55 600 MG Info (Anti-Coagulation Monitoring By Pharmacy) 1 each PRN DAILY PRN 08/24/19 12:30 08/29/19 13:41 1 EACH Insulin Glargine (Lantus Syringe) 35 unit DAILY08 08/25/19 08:00 08/24/19 12:38 DC Insulin Human Lispro (HumaLOG) 0-7 UNITS TIDWMEALS 08/24/19 13:00 08/30/19 17:15 3 UNITS Lactobacillus Rhamnosus (Culturelle) 1 cap BID 08/25/19 21:00 08/31/19 09:55 1 CAP Levofloxacin/ Dextrose 50 ml @ 50 mls/hr Q24H 08/24/19 21:00 08/24/19 11:32 DC Levofloxacin/ Dextrose (Levaquin Per Pharmacy) 1 each PRN DAILY PRN 08/23/19 20:30 Cancel Losartan Potassium (Cozaar) 25 mg DAILY 08/28/19 10:15 08/31/19 09:55 25 MG Magnesium Hydroxide (Milk Of Magnesia) 2,400 mg PRN DAILY PRN 08/24/19 12:18 Metoprolol Tartrate (Lopressor) 50 mg BID 08/24/19 21:00 08/28/19 10:10 DC 08/28/19 08:22 50 MG Polyethylene Glycol (miraLAX PACKET) 17 gm PRN DAILY PRN 08/24/19 12:15 Rivaroxaban (Xarelto) 20 mg DAILY16 08/24/19 16:00 08/30/19 17:05 20 MG Sodium Chloride 500 ml @ 500 mls/hr 1X ONCE 7/18/20 20:30 08/23/19 21:29 DC 08/23/19 21:28 500 MLS/HR Vancomycin HCl (Vanco Per Pharmacy) 1 each PRN DAILY PRN 08/23/19 20:30 08/24/19 11:21 DC 08/24/19 02:07 1 EACH Vancomycin HCl (Vancomycin Trough Level) 1 each 1X ONCE 08/25/19 21:30 08/25/19 21:31 Cancel Vancomycin HCl 1.5 gm/Sodium Chloride 500 ml @ 250 mls/hr Q24H 08/24/19 22:00 08/24/19 11:20 DC Vancomycin HCl 2 gm/Sodium Chloride 500 ml @ 250 mls/hr 1X ONCE 08/23/19 22:00 08/23/19 23:59 DC 08/23/19 22:00 250 MLS/HR Zinc Oxide (Zinc Oxide 20% Topical) 1 esther TID PRN 08/25/19 20:00 Labs: Lab Laboratory Tests Test 08/30/19 10:30 08/30/19 16:41 08/30/19 20:27 08/31/19 07:52 Glucose (Fingerstick) 163 mg/dL (70-99) 192 mg/dL (70-99) 216 mg/dL (70-99) 133 mg/dL (70-99) Objective: Assessment: Fever source likely lower extremity cellulitis resolved Cellulitis of lower extremities bilaterally., Cultures Proteus and PSAE, E. 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 AUGMENTIN AND ERYTHROMYCIN ALLERGY. Tolerating Rocephin well Acute kidney injury. Atrial fibrillation. Generalized weakness. Obesity. Urinary incontinence COVID negative Delirium Plan: Plan of Care Cipro and doxycycline, prescription in chart Local wound care as directed Maintain aspiration precautions CHON WISDOM MD Aug 31, 2019 10:01
[2019-08-31 11:00] VITALS: BP 139/59
[2019-08-31] MEDS: ANTI-COAG MONITOR BY PHARMACY. MC PRN (14:44)
[2019-08-31 15:00] VITALS: BP 136/60
[2019-08-31] MEDS: RIVAROXABAN 10 MG TABLET. PO SCH (17:09)
[2019-08-31] MEDS: HYDROcodone/APAP 5/325MG 1 TAB TABLET PO PRN (17:09)
[2019-08-31 19:15] VITALS: BP 144/44
[2019-08-31] MEDS: INSULIN GLARGINE SYRINGE. SQ SCH (21:26)
[2019-08-31 23:00] VITALS: BP 127/95
[2019-09-01 03:04] VITALS: BP 142/68
[2019-09-01 07:00] VITALS: BP 151/58
[2019-09-01] MEDS: LOSARTAN POTASSIUM 25 MG TABLET. PO SCH (08:53)
[2019-09-01] MEDS: ASPIRIN ENTERIC COATED 81 MG TABLET.DR. PO SCH (08:53)
[2019-09-01] MEDS: CARVEDILOL 12.5 MG TABLET. PO SCH ×2 (08:53→18:03)
[2019-09-01] MEDS: LACTOBACILLUS RHAMNOSUS GG 1 CAPSULE. PO SCH ×2 (08:53→21:24)
[2019-09-01] MEDS: CIPROFLOXACIN HCL 250 MG TABLET. PO SCH ×2 (08:53→21:24)
[2019-09-01] MEDS: CETIRIZINE HCL 10 MG TABLET. PO SCH (08:53)
[2019-09-01] MEDS: FUROSEMIDE 20 MG TABLET PO SCH (08:53)
[2019-09-01] MEDS: GABAPENTIN 300 MG CAPSULE. PO SCH ×2 (08:53→21:24)
[2019-09-01] MEDS: INSULIN LISPRO 300 UNITS/3 ML VIAL. SQ SCH ×3 (09:00→18:08)
[2019-09-01 11:00] VITALS: BP 104/46
--- NOTE | 2019-09-01 11:37 | PDOC3 ---
Discharge Summary Visit Information Date of Admission: Aug 23, 2019 Date of Discharge: Sep 01, 2019 Admitting Diagnosis: Cellulitis Final Diagnosis Problems Medical Problems: (1) Cellulitis Status: Acute (2) Troponin level elevated Status: Acute Brief Hospital Course Allergies Allergies Coded Allergies Type Severity Reaction Last Updated Verified fosinopril Allergy Severe 08/23/19 Yes amoxicillin Allergy Intermediate DIARRHEA AND VOMITING 08/29/19 Yes clavulanic acid Allergy Intermediate 08/23/19 Yes erythromycin base Allergy Intermediate 08/23/19 Yes metformin Allergy Intermediate 08/23/19 Yes niacin Allergy Intermediate 08/23/19 Yes pioglitazone Allergy Intermediate 08/23/19 Yes simvastatin Allergy Intermediate 08/23/19 Yes I S O L A T I O N *CONTACT* Allergy Unknown 08/29/19 Yes Vital Signs Vital Signs Date Time Temp Pulse Resp B/P (MAP) Pulse Ox O2 Delivery O2 Flow Rate FiO2 09/01/19 11:00 99.6 62 18 104/46 (65) 92 Room Air 99.6 Lab Results Laboratory Tests Test 08/30/19 16:41 08/30/19 20:27 08/31/19 07:52 08/31/19 11:47 Glucose (Fingerstick) 192 mg/dL (70-99) 216 mg/dL (70-99) 133 mg/dL (70-99) 219 mg/dL (70-99) Test 08/31/19 16:36 08/31/19 21:15 09/01/19 08:26 09/01/19 11:14 Glucose (Fingerstick) 249 mg/dL (70-99) 213 mg/dL (70-99) 159 mg/dL (70-99) 184 mg/dL (70-99) Laboratory Tests Test 08/31/19 11:47 08/31/19 16:36 08/31/19 21:15 09/01/19 08:26 Glucose (Fingerstick) 219 mg/dL (70-99) 249 mg/dL (70-99) 213 mg/dL (70-99) 159 mg/dL (70-99) Test 09/01/19 11:14 Glucose (Fingerstick) 184 mg/dL (70-99) Brief Hospital Course Mr Villalobos is an 84-year-old male, with past medical history of CAD, CHF, diabetes type 2, A. fib, who presents to the ED with generalized weakness for the last 2 weeks and is progressively gotten worse. Patient states that his weakness is mainly is is in his lower extremities and he does receive wound care for both of his legs due to venous insufficiency. Patient does suffer multiple wounds and possibly fungal infection that is also being treated by wound care. In the last couple days patient was not able to support his own weight and decided that he needed to be brought in. Patient resides at [facility] and feels that the care at [facility] is an adequate and would like to switch to a different location. Ultimately he would like to go home with home health and also receive physical therapy. Patient was tested negative for COVID recently patient does normally go to the [facility] for his wound care. Denies fevers, shortness of breath, chest pain, abdominal pain, diarrhea, bloody stools, hematuria. 08/24: Afebrile. He is worried about the time he and his are arrested and spent 3 [facility] in [facility]. He is confused he knows he is confused. Has been urinating on himself and his legs and buttocks are moist. 08/25: Patient febrile today, 100.8 F. Mcknight catheter attempted to pass but is unable to patient does not wish for this. Barrier cream in place. Is excoriated on his buttocks. No shortness of breath or chest pain. COVID-19 initial test negative. 08/26: Afebrile. Uncomfortable with his leg straight. Wounds improved. He is still talking about being incarcerated, and confused. Wound culture with Pseudomonas, staph aureus, Proteus 08/27: Afebrile. Wounds improving. Echo reviewed with global hypokinesis and EF 40-45%. 08/28: Afebrile. Wounds improving confusion is a little improved. Discussed with daughter at bedside he is not appropriate to go back to 5. Does need acute rehab. Changed to oral antibiotics doxycycline for 7 days and Cipro for 5 days. 08/29: Confusion slightly improved. Still very weak, has changed to oral antibiotics with no adverse effects. No fevers. Still needs skilled rehab on discharge. 08/30: Afebrile. Mcknight catheter out. Tolerating oral antibiotics well. Confusion is improving. Still profoundly weak. 08/31: No acute events reported overnight, case discussed with nursing staff patient in no acute distress no complaints during my visit Assessment Assessment Physical Exam General: Alert, Oriented X3, Cooperative, No acute distress Heart: Regular rate Lungs: Clear Abdomen: Normal bowel sounds Extremities: No clubbing, No cyanosis Skin: Other (Stasis dermatitis, cellulitis) Discharge Information Condition at Discharge: Improved Follow Up: Weeks Disposition/Orders: D/C to Another Facility Scheduled Aspirin (Aspirin Ec) 81 Mg Tablet.dr, 81 MG PO DAILYWBKFT for CAD for 30 Days, #30 Ref 2 Prescribed by: LARA MERAZ MD on 08/29/19 1228 Carvedilol (Carvedilol ) 12.5 Mg Tablet, 12.5 MG PO BIDWMEALS for CHF/afib for 30 Days, #60 Ref 2 Prescribed by: LARA MERAZ MD on 08/29/19 1228 Cetirizine Hcl (Cetirizine Hcl) 10 Mg Tablet, 1 TAB PO DAILY for allergies, #30 Ref 5 (Reported) Entered as Reported by: VAIBHAV ASHTON RN on 08/24/19453 Last Action: Continued on 08/24/191211 by VALERIA HERRON MD Ciprofloxacin Hcl (Ciprofloxacin Hcl) 500 Mg Tablet, 1 TAB PO BID for Cellulitis for 5 Days, #10 Prescribed by: LARA MERAZ MD on 08/29/19 1228 Doxycycline Hyclate (Doxycycline Hyclate) 100 Mg Capsule, 1 CAP PO BID for Cellulitis for 7 Days, #14 Prescribed by: LARA MERAZ MD on 08/29/19 1228 Furosemide (Furosemide) 20 Mg Tablet, 1 TAB PO DAILY for fluid retention, #90 Ref 1 (Reported) Entered as Reported by: VAIBHAV ASHTON RN on 08/24/19453 Last Action: Continued on 08/24/191211 by VALERIA HERRON MD Gabapentin (Gabapentin) 600 Mg Tablet, 600 MG PO BID for NEUROGENIC PAIN, (Reported) Entered as Reported by: VAIBHAV ASHTON RN on 08/24/196 Last Action: Converted on 08/24/191211 by VALERIA HERRON MD Insulin Aspart (Insulin Aspart) 100 Unit/1 Ml Vial, 0-9 UNIT SQ TIDAC for DM for 30 Days, #1 Prescribed by: LARA MERAZ MD on 08/29/19 1228 Insulin Glargine,Hum.rec.anlog (Lantus) 100 Unit/1 Ml Vial, 37 UNIT SQ QHS for DM, (Reported) Entered as Reported by: VAIBHAV ASHTON RN on 08/24/19453 Last Action: Continued on 08/24/191234 by VALERIA HERRON MD Losartan Potassium (Losartan Potassium) 100 Mg Tablet, 100 MG PO DAILY for HY PERTENSION, (Reported) Entered as Reported by: VAIBHAV ASHTON RN on 08/24/19503 Last Action: New Order on 08/24/19503 by VAIBHAV ASHTON RN Menthol (Bengay Ultra Strength) 1 Each Adh..patch, 1 EACH TP Q8HRS for knee pain, (Reported) Entered as Reported by: VAIBHAV ASHTON RN on 08/24/19503 Last Action: New Order on 08/24/19503 by VAIBHAV ASHTON RN Nystatin (Nystatin) 15 Gm Cream..g., 1 SHERON TP BID for candiasis, #30 (Reported) Entered as Reported by: VAIBHAV ASHTON RN on 08/24/19503 Last Action: HELD on 08/24/191211 by VALERIA HERRON MD [place]-3 Fatty Acids/Fish Oil (Fish Oil 1,000 Mg Softgel) 1 Each Capsule, 1 CAP PO BID for supplement for 30 Days, #60 Ref 0 (Reported) WITH MEALS Entered as Reported by: VAIBHAV ASHTON RN on 08/24/19453 Last Action: New Order on 08/24/19453 by VAIBHAV ASHTON RN Rivaroxaban (Xarelto) 20 Mg Tablet, 1 TAB PO DAILY for blood thinner for 30 Days, #30 Ref 0 (Reported) with food Entered as Reported by: VAIBHAV ASHTON RN on 08/24/19503 Last Action: Converted on 08/24/191211 by VALERIA HERRON MD Scheduled PRN Bisacodyl (Dulcolax) 5 Mg Tablet.dr, 1 TAB PO TID PRN for CONSTIPATION for 1 Days, #2 Ref 0 (Reported) Entered as Reported by: VAIBHAV ASHTON RN on 08/24/19436 Last Action: Continued on 08/24/191211 by VALERIA HERRON MD Hydrocodone Bit/Acetaminophen (Hydrocodone-Apap 5-325 ) 1 Tab Tablet, 1 TAB PO PRN Q6HRS PRN for MODERATE PAIN for 6 Days, #15 Prescribed by: LARA MERAZ MD on 08/29/19 1228 Magnesium Hydroxide (Milk Of Magnesia) 400 Mg/5 Ml Oral.susp, 400 MG PO DAILY PRN for CONSTIPATION, (Reported) Entered as Reported by: VAIBHAV ASHTON RN on 08/24/19503 Last Action: Continued on 08/24/191211 by VALERIA HERRON MD Polyethylene Glycol 3350 (Miralax) 17 Gm Powd.pack, 1 PACKET PO DAILY PRN for CONSTIPATION for 2 Days, #2 Ref 0 (Reported) dissolve in water Entered as Reported by: VAIBHAV SAHTON RN on 08/24/19503 Last Action: Continued on 08/24/191211 by VALERIA HERRON MD Zinc Oxide (Zinc Oxide) 56.7 Gm Oint...g., 1 SHERON TP TID PRN for SKIN PROTECTION for 30 Days, #1 Prescribed by: LARA MERAZ MD on 08/29/19 1228 Discontinued Medications Clindamycin Hcl (Clindamycin Hcl) 300 Mg Capsule, 1 CAP PO TID, #21 Prescribed by: SKYLER HINKLE MD on 03/11/19 1722 Fluconazole (Fluconazole) 200 Mg Tablet, 1 TAB PO QTU for fungal infection, #14 (Reported) Entered as Reported by: VAIBHAV ASHTON RN on 08/24/19453 Last Action: New Order on 08/24/19453 by VAIBHAV ASHTON RN Insulin Glargine,Hum.rec.anlog (Lantus) 100 Unit/1 Ml Vial, 35 UNIT SQ DAILY08 for DM, (Reported) Entered as Reported by: VAIBHAV ASHTON RN on 08/24/19453 Last Action: Continued on 08/24/19 1235 by VALERIA HERRON MD Metoprolol Tartrate (Metoprolol Tartrate) 50 Mg Tablet, 1 TAB PO BID for htn, #60 Ref 5 (Reported) Entered as Reported by: VAIBHAV ASHTON RN on 08/24/19503 Last Action: Continued on 08/24/191211 by VALERIA HERRON MD Miconazole Nitrate (Anti-Fungal Cream) 113 Gm Cream..g., 1 SHERON TP BID for yeast in pannus for 14 Days, Ref 0 (Reported) Entered as Reported by: VAIBHAV ASHTON RN on 08/24/19503 Last Action: HELD on 08/24/191211 by VALERIA HERRON MD Silver Sulfadiazine (Silvadene) 20 Gm Cream..g., 1 SHERON TP DAILY for wounds for 7 Days, #50 Ref 0 (Reported) apply to affected area(s) Entered as Reported by: VAIBHAV ASHTON RN on 08/24/19503 Last Action: HELD on 08/24/191211 by VALERIA HERRON MD Spironolactone (Spironolactone) 25 Mg Tablet, 1 TAB PO DAILY for fluid retention, #90 Ref 1 (Reported) Entered as Reported by: VAIBHAV ASHTON RN on 08/24/19503 Last Action: HELD on 08/24/191211 by VALERIA HERRON MD Justicifation of Admission Dx: Justifications for Admission: Justification of Admission Dx: Yes SAWYER NICHOLSON MD Sep 01, 2019 11:37
[2019-09-01] MEDS: ASCORBIC ACID 500 MG TABLET PO SCH (12:01)
--- NOTE | 2019-09-01 13:53 | NUR ---
SW following. Spoke with RN and CM. Reviewed chart. Spoke with Mary Lou from [facility] about SNU referral sent Sunday per [facility] denial and [facility] does not take pt's insurance. LVM for dtr. ERIC also phoned and faxed SNU referrals to both Tanner at [facility] and [facility] and Tean with [facility] as they both take pt's insurance. ERIC to continue following.
--- NOTE | 2019-09-01 14:50 | NUR ---
Spoke with dtr who stated she had thought [facility] a [facility]. ERIC called Mary Lou back and she stated they do not have a contract with the [facility]. Pt's dtr would prefer [facility] to [facility] if using pt's [employer] Medicare. LVM for Tanner with [facility] x2 today to see if he can accept pt clinically and submit for authorization. ERIC also spoke with [place] [facility] [place], , (fax). ERIC obtained a list of [place] contracted facilities from [place] and called dtr back to see where she wants referrals sent. ERIC phoned and faxed clinicals to [place] to get authorization from [place] and also to both [facility], , (fax) and [facility], , (fax) per request of dtr. Addendum: 09/01/19 at 1524 by INES REYES Pt accepted clinically with [facility] in [facility] with Medicare [employer] but dtr wants to consider [place] contracted facilities first. Pt's dtr stated her first choice is [facility]. Pt's dtr stated she is also interested in the [facility] in [place] so a referral was also phoned and faxed to Vandana at this facility, , (fax).
[2019-09-01 14:58] VITALS: BP 132/74
[2019-09-01] MEDS: RIVAROXABAN 10 MG TABLET. PO SCH (18:03)
[2019-09-01 19:00] VITALS: BP 129/80
[2019-09-01] MEDS: INSULIN GLARGINE SYRINGE. SQ SCH (21:35)
[2019-09-01 23:00] VITALS: BP 146/62
[2019-09-02 03:00] VITALS: BP 145/55
[2019-09-02 07:00] VITALS: BP 137/58
[2019-09-02] MEDS: GABAPENTIN 300 MG CAPSULE. PO SCH ×2 (08:59→21:00)
[2019-09-02] MEDS: CETIRIZINE HCL 10 MG TABLET. PO SCH (08:59)
[2019-09-02] MEDS: FUROSEMIDE 20 MG TABLET PO SCH (08:59)
[2019-09-02] MEDS: LACTOBACILLUS RHAMNOSUS GG 1 CAPSULE. PO SCH ×2 (08:59→21:00)
[2019-09-02] MEDS: CIPROFLOXACIN HCL 250 MG TABLET. PO SCH ×2 (09:00→21:00)
[2019-09-02] MEDS: ASCORBIC ACID 500 MG TABLET PO SCH (09:00)
[2019-09-02] MEDS: LOSARTAN POTASSIUM 25 MG TABLET. PO SCH (09:00)
[2019-09-02] MEDS: ASPIRIN ENTERIC COATED 81 MG TABLET.DR. PO SCH (09:00)
[2019-09-02] MEDS: CARVEDILOL 12.5 MG TABLET. PO SCH ×2 (09:00→16:53)
[2019-09-02] MEDS: INSULIN LISPRO 300 UNITS/3 ML VIAL. SQ SCH ×3 (09:08→17:00)
[2019-09-02 11:00] VITALS: BP 127/57
--- NOTE | 2019-09-02 11:38 | PDOC ---
[facility] [facility] PROGRESS NOTE Chief Complaint Chief Complaint Mild cellulitis of lower extremities bilaterally. 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 Acute renal failure due to vasomotor nephropathy Atrial fibrillation chads vas score of greater than 4 currently on Xarelto Systolic CHF Severe malnutrition Debilitation Gait instability Morbid obesity Generalized weakness. Acute on chronic encephelopathy - likely metabolic from infection and chronic underlying PTSD Urinary retention - river out. Daily PVR History of Present Illness History of Present Illness 09/02/2019 Patient seen and examined Chart reviewed Discussed with RN Mr Villalobos is an 84-year-old male, with past medical history of CAD, CHF, diabetes type 2, A. fib, who presents to the ED with generalized weakness for the last 2 weeks and is progressively gotten worse. Patient states that his weakness is mainly is is in his lower extremities and he does receive wound care for both of his legs due to venous insufficiency. Patient does suffer multiple wounds and possibly fungal infection that is also being treated by wound care. In the last couple days patient was not able to support his own weight and decided that he needed to be brought in. Patient resides at [facility] and feels that the care at [facility] is an adequate and would like to switch to a different location. Ultimately he would like to go home with home health and also receive physical therapy. Patient was tested negative for COVID recently patient does normally go to the [facility] for his wound care. Denies fevers, shortness of breath, chest pain, abdominal pain, diarrhea, bloody stools, hematuria. 08/24: Afebrile. He is worried about the time he and his are arrested and spent 3 [facility] in [facility]. He is confused he knows he is confused. Has been urinating on himself and his legs and buttocks are moist. 08/25: Patient febrile today, 100.8 F. River catheter attempted to pass but is unable to patient does not wish for this. Barrier cream in place. Is excoriated on his buttocks. No shortness of breath or chest pain. COVID-19 initial test negative. 08/26: Afebrile. Leg pain today. Wounds improved. He is still talking about being incarcerated, and confused. Wound culture with Pseudomonas, staph aureus, Proteus, e. coli 08/27: Afebrile. Wounds improving. Echo reviewed with global hypokinesis and EF 40-45%. 08/28: Afebrile. Wounds improving confusion is a little improved. Discussed with daughter at bedside he is not appropriate to go back to 5. Does need acute rehab. Changed to oral antibiotics doxycycline for 7 days and Cipro for 5 days. 08/29: Confusion slightly improved. Still very weak, has changed to oral antibiotics with no adverse effects. No fevers. Still needs skilled rehab on discharge. Afebrile. River catheter out. Tolerating oral antibiotics well. Confusion is improving. Still profoundly weak. Vitals/I&O Vitals/I&O: Vital Signs Date Time Temp Pulse Resp B/P (MAP) Pulse Ox O2 Delivery O2 Flow Rate FiO2 09/02/19 09:00 66 137/58 09/02/19 07:00 97.9 18 97 Room Air 97.9 I & O 09/01/19 09/01/19 09/02/19 15:00 23:00 07:00 Intake Total 50 ml 400 ml Balance 50 ml 400 ml Physical Exam General: Alert, Oriented X3, Cooperative, No acute distress Heart: Regular rate Lungs: Clear Abdomen: Normal bowel sounds Extremities: No clubbing, No cyanosis Skin: Other (Stasis dermatitis, cellulitis) Labs Labs: Laboratory Tests Test 09/01/19 18:02 09/01/19 21:21 09/02/19 07:54 Glucose (Fingerstick) 191 mg/dL (70-99) 212 mg/dL (70-99) 160 mg/dL (70-99) Assessment and Plan Assessmemt and Plan Problems Medical Problems: (1) Cellulitis Status: Acute (2) Troponin level elevated Status: Acute Mild cellulitis of lower extremities bilaterally. 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 Acute renal failure due to vasomotor nephropathy Atrial fibrillation chads vas score of greater than 4 currently on Xarelto Systolic CHF - will add ARB, change BB to carvedilol Troponinemia Severe malnutrition Debilitation Gait instability Morbid obesity Generalized weakness. Acute on chronic encephelopathy - likely metabolic from infection and chronic underlying PTSD Urinary retention - river out. Daily PVR Plan PT OT speech therapy Home meds DVT prophylaxis Full code Discharge planning in progress he might go to [facility] at [place] or [facility] Appreciate subspecialist input Comment Review of Relevant I have reviewed the following items rayshawn (where applicable) has been applied. Justicifation of Admission Dx: Justifications for Admission: Justification of Admission Dx: Yes ALEXANDER RANDLE III DO Sep 02, 2019 11:38
[2019-09-02] MEDS: ANTI-COAG MONITOR BY PHARMACY. MC PRN (12:30)
[2019-09-02 15:00] VITALS: BP 131/61
--- NOTE | 2019-09-02 15:04 | NUR ---
SW following. Spoke with RN and reviewed chart. Spoke with Chintan from [facility] [place], , (fax). Pt has been accepted clinically for SNU at [facility] pending approval from the [place]. Spoke with Hortencia the [place] ERIC who stated she is still working to get authorization. Pt will likely discharge tomorrow, 09/03/2019. ERIC called and updated dtr Marissa, . ERIC to continue following.
[2019-09-02] MEDS: RIVAROXABAN 10 MG TABLET. PO SCH (16:52)
[2019-09-02] MEDS: HYDROcodone/APAP 5/325MG 1 TAB TABLET PO PRN (16:52)
[2019-09-02 19:00] VITALS: BP 123/65
[2019-09-02] MEDS: INSULIN GLARGINE SYRINGE. SQ SCH (21:39)
[2019-09-02 23:00] VITALS: BP 147/68
[2019-09-03 03:00] VITALS: BP 133/83
[2019-09-03 07:56] VITALS: BP 168/64
[2019-09-03] MEDS: ASPIRIN ENTERIC COATED 81 MG TABLET.DR. PO SCH (08:42)
[2019-09-03] MEDS: GABAPENTIN 300 MG CAPSULE. PO SCH ×2 (08:42→23:27)
[2019-09-03] MEDS: LACTOBACILLUS RHAMNOSUS GG 1 CAPSULE. PO SCH ×2 (08:42→23:27)
[2019-09-03] MEDS: CIPROFLOXACIN HCL 250 MG TABLET. PO SCH ×2 (08:42→23:27)
[2019-09-03] MEDS: FUROSEMIDE 20 MG TABLET PO SCH (08:42)
[2019-09-03] MEDS: CETIRIZINE HCL 10 MG TABLET. PO SCH (08:42)
[2019-09-03] MEDS: LOSARTAN POTASSIUM 25 MG TABLET. PO SCH (08:42)
[2019-09-03] MEDS: ASCORBIC ACID 500 MG TABLET PO SCH (08:42)
[2019-09-03] MEDS: CARVEDILOL 12.5 MG TABLET. PO SCH ×2 (08:43→17:41)
--- NOTE | 2019-09-03 08:57 | PDOC ---
[employer] PROGRESS NOTE Chief Complaint Chief Complaint Mild cellulitis of lower extremities bilaterally. 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 Acute renal failure due to vasomotor nephropathy Atrial fibrillation chads vas score of greater than 4 currently on Xarelto Systolic CHF Severe malnutrition Debilitation Gait instability Morbid obesity Generalized weakness. Acute on chronic encephelopathy - likely metabolic from infection and chronic underlying PTSD Urinary retention - river out. Daily PVR History of Present Illness History of Present Illness 09/03/2019 Patient seen and examined Patient is resting in NAD Chart reviewed Discussed with RN 09/02/2019 Patient seen and examined Chart reviewed Discussed with RN Mr Villalobos is an 84-year-old male, with past medical history of CAD, CHF, diabetes type 2, A. fib, who presents to the ED with generalized weakness for the last 2 weeks and is progressively gotten worse. Patient states that his weakness is mainly is is in his lower extremities and he does receive wound care for both of his legs due to venous insufficiency. Patient does suffer multiple wounds and possibly fungal infection that is also being treated by wound care. In the last couple days patient was not able to support his own weight and decided that he needed to be brought in. Patient resides at [facility] and feels that the care at [facility] is an adequate and would like to switch to a different location. Ultimately he would like to go home with home health and also receive physical therapy. Patient was tested negative for COVID recently patient does normally go to the [facility] for his [facility] care. Denies fevers, shortness of breath, chest pain, abdominal pain, diarrhea, bloody stools, hematuria. 08/24: Afebrile. He is worried about the time he and his are arrested and spent 3 days in residential. He is confused he knows he is confused. Has been urinating on himself and his legs and buttocks are moist. 08/25: Patient febrile today, 100.8 F. River catheter attempted to pass but is unable to patient does not wish for this. Barrier cream in place. Is excoriated on his buttocks. No shortness of breath or chest pain. COVID-19 initial test negative. 08/26: Afebrile. Leg pain today. Wounds improved. He is still talking about being incarcerated, and confused. Wound culture with Pseudomonas, staph aureus, Proteus, e. coli 08/27: Afebrile. Wounds improving. Echo reviewed with global hypokinesis and EF 40-45%. 08/28: Afebrile. Wounds improving confusion is a little improved. Discussed with daughter at bedside he is not appropriate to go back to 5. Does need acute rehab. Changed to oral antibiotics doxycycline for 7 days and Cipro for 5 days. 08/29: Confusion slightly improved. Still very weak, has changed to oral antibiotics with no adverse effects. No fevers. Still needs skilled rehab on discharge. Afebrile. River catheter out. Tolerating oral antibiotics well. Confusion is improving. Still profoundly weak. Vitals/I&O Vitals/I&O: Vital Signs Date Time Temp Pulse Resp B/P (MAP) Pulse Ox O2 Delivery O2 Flow Rate FiO2 09/03/19 07:56 97.4 69 20 168/64 (98) 97 Room Air 97.4 I & O 09/02/19 09/02/19 09/03/19 15:00 23:00 07:00 Intake Total 100 ml 400 ml Balance 100 ml 400 ml Physical Exam General: Alert, Oriented X3, Cooperative, No acute distress Heart: Regular rate Lungs: Clear Abdomen: Normal bowel sounds, No tenderness Extremities: No clubbing, No cyanosis Skin: Other (Stasis dermatitis, cellulitis) Labs Labs: Laboratory Tests Test 09/02/19 11:49 09/02/19 16:37 09/03/19 07:42 Glucose (Fingerstick) 199 mg/dL (70-99) 151 mg/dL (70-99) 163 mg/dL (70-99) Assessment and Plan Assessmemt and Plan Problems Medical Problems: (1) Cellulitis Status: Acute (2) Troponin level elevated Status: Acute Assessment: Mild cellulitis of lower extremities bilaterally 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 Acute on chronic encephelopathy - likely metabolic from infection and chronic underlying PTSD Urinary retention - river out. Daily PVR Plan: PT/OT/ST Wound care DVT prophylaxis Continue home meds Dis[facility] progress [facility] [place] [facility] Appreciate subspecialty input Comment Review of Relevant I have reviewed the following items rayshawn (where applicable) has been applied. Justicifation of Admission Dx: Justifications for Admission: Justification of Admission Dx: Yes ALEXANDER RANDLE III DO Sep 03, 2019 08:57
[2019-09-03] MEDS: INSULIN LISPRO 300 UNITS/3 ML VIAL. SQ SCH ×3 (09:07→17:44)
[2019-09-03] MEDS: HYDROcodone/APAP 5/325MG 1 TAB TABLET PO PRN ×2 (10:46→17:41)
[2019-09-03 11:00] VITALS: BP 109/37
[2019-09-03 15:00] VITALS: BP 111/59
--- NOTE | 2019-09-03 15:43 | NUR ---
SW following. Spoke with RN and reviewed chart. Spoke with Chintan from [facility] and Hortencia from the [place] and [facility] authorization is still pending. ERIC phoned and faxed updated clinicals to Jon at [facility] in the [facility], , (fax) to see if pt gets approved faster through Medicare. Jon submitted for authorization as pt has been accepted clinically. Pt's family wants [facility] through the [place] but did approve initial referral to [facility]. ERIC to continue following.
[2019-09-03] MEDS: RIVAROXABAN 10 MG TABLET. PO SCH (17:41)
[2019-09-03 19:00] VITALS: BP 113/40
[2019-09-03] MEDS: INSULIN GLARGINE SYRINGE. SQ SCH (21:00)
[2019-09-03 23:00] VITALS: BP 103/48
[2019-09-04 03:00] VITALS: BP 129/48
[2019-09-04 07:00] VITALS: BP 144/52
[2019-09-04] MEDS: ASPIRIN ENTERIC COATED 81 MG TABLET.DR. PO SCH (08:27)
[2019-09-04] MEDS: CARVEDILOL 12.5 MG TABLET. PO SCH (08:29)
[2019-09-04] MEDS: ASCORBIC ACID 500 MG TABLET PO SCH (08:29)
[2019-09-04] MEDS: LACTOBACILLUS RHAMNOSUS GG 1 CAPSULE. PO SCH (08:29)
[2019-09-04] MEDS: CIPROFLOXACIN HCL 250 MG TABLET. PO SCH (08:29)
[2019-09-04] MEDS: GABAPENTIN 300 MG CAPSULE. PO SCH (08:29)
[2019-09-04] MEDS: LOSARTAN POTASSIUM 25 MG TABLET. PO SCH (08:29)
[2019-09-04] MEDS: CETIRIZINE HCL 10 MG TABLET. PO SCH (08:29)
[2019-09-04] MEDS: FUROSEMIDE 20 MG TABLET PO SCH (08:30)
[2019-09-04] MEDS: INSULIN LISPRO 300 UNITS/3 ML VIAL. SQ SCH ×2 (08:31→12:44)
[2019-09-04 11:00] VITALS: BP 108/45
--- NOTE | 2019-09-04 11:58 | SNU/HH DC ---
DISCHARGE ORDERS DISCHARGE INFORMATION: DISCHARGE DATE: Aug 29, 2019 FINAL DIAGNOSIS Problems Medical Problems: (1) Cellulitis Status: Acute (2) Troponin level elevated Status: Acute CONDITION ON DISCHARGE: Stable CODE STATUS: Code Status: Full HALFWAY: SNF STAY <30 DAYS: Yes HOSPICE: HOSPICE: No HOSPICE EVAL & TREAT: No LTAC: ADMIT TO LTAC: No POST DISCHARGE ORDERS: ACTIVITY ORDERS: Activity as tolerated WEIGHT BEARING STATUS: Full weight bearing DIET AFTER DISCHARGE: ADA CHECKS AFTER DISCHARGE: CHECKS AFTER DISCHARGE: Check blood press - daily, Check blood sugar, ac/hs, Weigh Yourself Daily TREATMENT/EQUIPMENT ORDERS: ADAPTIVE EQUIPMENT NEEDED: Front wheeled walker Physical Therapy For: Evalulation/Treatment Occupational Therapy For: Evaluation/Treatment DISCHARGE MEDICATIONS: Home Meds Active Scripts Ciprofloxacin Hcl (CIPROFLOXACIN HCL) 500 Mg Tablet, 1 TAB PO BID for Cellulitis for 5 Days, #10 TAB Prov:LARA MERAZ MD 08/29/19 Doxycycline Hyclate (DOXYCYCLINE HYCLATE) 100 Mg Capsule, 1 CAP PO BID for Cellulitis for 7 Days, #14 CAP Prov:LARA MERAZ MD 08/29/19 Zinc Oxide (ZINC OXIDE) 56.7 Gm Oint...g., 1 SHERON TP TID PRN for SKIN PROTECTION for 30 Days, #1 MISC Prov:LARA MERAZ MD 08/29/19 Hydrocodone Bit/Acetaminophen (HYDROCODONE-APAP 5-325 ) 1 Tab Tablet, 1 TAB PO PRN Q6HRS PRN for MODERATE PAIN for 6 Days, #15 TAB Prov:LARA MERAZ MD 08/29/19 Aspirin (ASPIRIN EC) 81 Mg Tablet.dr, 81 MG PO DAILYWBKFT for CAD for 30 Days, #30 TAB.SR 2 Refills Prov:LARA MERAZ MD 08/29/19 Carvedilol (CARVEDILOL ) 12.5 Mg Tablet, 12.5 MG PO BIDWMEALS for CHF/afib for 30 Days, #60 TAB 2 Refills Prov:LARA MERAZ MD 08/29/19 Insulin Aspart (Insulin Aspart) 100 Unit/1 Ml Vial, 0-9 UNIT SQ TIDAC for DM for 30 Days, #1 EACH Prov:LARA MERAZ MD 08/29/19 Reported Medications Rivaroxaban (XARELTO) 20 Mg Tablet, 1 TAB PO DAILY for blood thinner for 30 Days, #30 TAB 0 Refills with food 08/24/19 Nystatin (NYSTATIN) 15 Gm Cream..g., 1 SHERON TP BID for candiasis, #30 GM 08/24/19 Polyethylene Glycol 3350 (MIRALAX) 17 Gm Powd.pack, 1 PACKET PO DAILY PRN for CONSTIPATION for 2 Days, #2 PACKET 0 Refills dissolve in water 08/24/19 Magnesium Hydroxide (MILK OF MAGNESIA) 400 Mg/5 Ml Oral.susp, 400 MG PO DAILY PRN for CONSTIPATION, MISC 08/24/19 Menthol (BENGAY ULTRA STRENGTH) 1 Each Adh..patch, 1 EACH TP Q8HRS for knee pain, PATCH 08/24/19 Losartan Potassium (LOSARTAN POTASSIUM) 100 Mg Tablet, 100 MG PO DAILY for HYPERTENSION, TAB 08/24/19 Insulin Glargine,Hum.rec.anlog (LANTUS) 100 Unit/1 Ml Vial, 37 UNIT SQ QHS for DM, VIAL 08/24/19 Gabapentin (GABAPENTIN) 600 Mg Tablet, 600 MG PO BID for NEUROGENIC PAIN, TAB 08/24/19 Furosemide (FUROSEMIDE) 20 Mg Tablet, 1 TAB PO DAILY for fluid retention, #90 TAB 1 Refill 08/24/19 [place]-3 Fatty Acids/Fish Oil (FISH OIL 1,000 MG SOFTGEL) 1 Each Capsule, 1 CAP PO BID for supplement for 30 Days, #60 CAP 0 Refills WITH MEALS 08/24/19 Cetirizine Hcl (CETIRIZINE HCL) 10 Mg Tablet, 1 TAB PO DAILY for allergies, #30 TAB 5 Refills 08/24/19 Bisacodyl (DULCOLAX) 5 Mg Tablet.dr, 1 TAB PO TID PRN for CONSTIPATION for 1 Day, #2 TAB 0 Refills 08/24/19 Discontinued Reported Medications Spironolactone (SPIRONOLACTONE) 25 Mg Tablet, 1 TAB PO DAILY for fluid retention, #90 TAB 1 Refill 08/24/19 Silver Sulfadiazine (SILVADENE) 20 Gm Cream..g., 1 SHERON TP DAILY for wounds for 7 Days, #50 GM 0 Refills apply to affected area(s) 08/24/19 Miconazole Nitrate (ANTI-FUNGAL CREAM) 113 Gm Cream..g., 1 SHERON TP BID for yeast in pannus for 14 Days, GM 0 Refills 08/24/19 Metoprolol Tartrate (METOPROLOL TARTRATE) 50 Mg Tablet, 1 TAB PO BID for htn, #60 TAB 5 Refills 08/24/19 Insulin Glargine,Hum.rec.anlog (LANTUS) 100 Unit/1 Ml Vial, 35 UNIT SQ DAILY08 for DM, VIAL 08/24/19 Fluconazole (FLUCONAZOLE) 200 Mg Tablet, 1 TAB PO QTU for fungal infection, #14 TAB 08/24/19 Discontinued Scripts Clindamycin Hcl (CLINDAMYCIN HCL) 300 Mg Capsule, 1 CAP PO TID, #21 CAP Prov:SKYLER HINKLE MD 03/11/19 ALEXANDER RANDLE III DO Sep 04, 2019 11:58
--- NOTE | 2019-09-04 12:05 | PDOC ---
[employer] PROGRESS NOTE Chief Complaint Chief Complaint Mild cellulitis of lower extremities bilaterally. 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 Acute renal failure due to vasomotor nephropathy Atrial fibrillation chads vas score of greater than 4 currently on Xarelto Systolic CHF Severe malnutrition Debilitation Gait instability Morbid obesity Generalized weakness. Acute on chronic encephelopathy - likely metabolic from infection and chronic underlying PTSD Urinary retention - river out. Daily PVR History of Present Illness History of Present Illness 09/04/2019 Patient seen and examined Patient is resting in NAD Chart reviewed Discussed with RN Probable discharge today 09/03/2019 Patient seen and examined Patient is resting in NAD Chart reviewed Discussed with RN 09/02/2019 Patient seen and examined Chart reviewed Discussed with RN Mr Villalobos is an 84-year-old male, with past medical history of CAD, CHF, diabet es type 2, A. fib, who presents to the ED with generalized weakness for the last 2 weeks and is progressively gotten worse. Patient states that his weakness is mainly is is in his lower extremities and he does receive wound care for both of his legs due to venous insufficiency. Patient does suffer multiple wounds and possibly fungal infection that is also being treated by wound care. In the last couple days patient was not able to support his own weight and decided that he needed to be brought in. Patient resides at [facility] and feels that the care at [facility] is an adequate and would like to switch to a different location. Ultimately he would like to go home with home health and also receive physical therapy. Patient was tested negative for COVID recently patient does normally go to the [facility] for his [facility] care. Denies fevers, shortness of breath, chest pain, abdominal pain, diarrhea, bloody stools, hematuria. 08/24: Afebrile. He is worried about the time he and his are arrested and spent 3 days in residential. He is confused he knows he is confused. Has been urinating on himself and his legs and buttocks are moist. 08/25: Patient febrile today, 100.8 F. River catheter attempted to pass but is unable to patient does not wish for this. Barrier cream in place. Is excoriated on his buttocks. No shortness of breath or chest pain. COVID-19 initial test negative. 08/26: Afebrile. Leg pain today. Wounds improved. He is still talking about being incarcerated, and confused. Wound culture with Pseudomonas, staph aureus, Proteus, e. coli 08/27: Afebrile. Wounds improving. Echo reviewed with global hypokinesis and EF 40-45%. 08/28: Afebrile. Wounds improving confusion is a little improved. Discussed with daughter at bedside he is not appropriate to go back to 5. Does need acute rehab. Changed to oral antibiotics doxycycline for 7 days and Cipro for 5 days. 08/29: Confusion slightly improved. Still very weak, has changed to oral antibiotics with no adverse effects. No fevers. Still needs skilled rehab on discharge. Afebrile. River catheter out. Tolerating oral antibiotics well. Confusion is improving. Still profoundly weak. Vitals/I&O Vitals/I&O: Vital Signs Date Time Temp Pulse Resp B/P (MAP) Pulse Ox O2 Delivery O2 Flow Rate FiO2 09/04/19 11:00 97.8 62 18 108/45 (66) 98 Room Air 97.8 I & O 09/03/19 09/03/19 09/04/19 15:00 23:00 07:00 Intake Total 120 ml 150 ml 0 ml Balance 120 ml 150 ml 0 ml Physical Exam General: Alert, Cooperative, No acute distress Heart: Regular rate Lungs: Clear Abdomen: Normal bowel sounds, No tenderness, No masses Extremities: No clubbing, No cyanosis Skin: Other (Stasis dermatitis, cellulitis) Labs Labs: Laboratory Tests Test 09/03/19 16:45 09/03/19 20:52 09/04/19 07:36 09/04/19 10:58 Glucose (Fingerstick) 186 mg/dL (70-99) 199 mg/dL (70-99) 177 mg/dL (70-99) 163 mg/dL (70-99) Assessment and Plan Assessmemt and Plan Problems Medical Problems: (1) Cellulitis Status: Acute (2) Troponin level elevated Status: Acute ASSESSMENT: Mild cellulitis of lower extremities bilaterally 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 Acute on chronic encephelopathy - likely metabolic from infection and chronic underlying PTSD Urinary retention - river out. Daily PVR PLAN: Probable discharge today to [facility] SNU PT/OT/ST Wound care DVT prophylaxis Ciprofloxacin PO Continue home meds DNR Appreciate subspecialty input Comment Review of Relevant I have reviewed the following items rayshawn (where applicable) has been applied. Justicifation of Admission Dx: Justifications for Admission: Justification of Admission Dx: Yes ALEXANDER RANDLE III DO Sep 04, 2019 12:05
--- NOTE | 2019-09-04 12:26 | DS ---
DATE OF DISCHARGE: 09/04/2019 ADMISSION DIAGNOSES: Cellulitis, possible COVID-19, psychiatric issues, coronary artery disease, congestive heart failure, diabetes. DISCHARGE DIAGNOSES: Resolving cellulitis, chronic debility, venous stasis, renal failure, atrial fibrillation, malnutrition, obesity. CONSULTS: Podiatry, Nephrology, Cardiology and Infectious Disease. HOSPITAL COURSE: The patient is a pleasant elderly male who presented with bilateral lower extremity cellulitis and mental status changes. He was quite weak. He was admitted with IV antibiotics. We are concerned he could have COVID-19 that was ruled out. We did wound care and over the past week or so, he has gotten a lot better, but we have been having problems with placement. Today, the pillowcase folder explained that she had [facility] I saw him and examined him. Heart tones are normal. Lungs are clear. We plan to [facility] to [facility]. DISPOSITION: Skilled. ACTIVITY: As tolerated. DIET: Low sodium. MEDICATIONS: Please see MRAD. TOTAL TIME: 33 minutes. ALEXANDER RANDLE DO DR: JUAN/iwona JOB#: [id number] / [id number]
[2019-09-04] MEDS: ANTI-COAG MONITOR BY PHARMACY. MC PRN (15:29)
[2019-09-04 15:30] VITALS: BP 125/55
[2019-09-04] MEDS: RIVAROXABAN 10 MG TABLET. PO SCH (16:00)
--- NOTE | 2019-09-04 16:30 | NUR ---
Pt left unit at 1630 by wheelchair via transportation. IV removed with no complications, VSS. Report called to KOLBY Swann at [facility] at [phone].
--- NOTE | 2019-09-04 16:59 | NUR ---
SW following. Spoke with RN and reviewed chart. Spoke with Hortencia valles [place] ERIC and pt has been approved for SNU. ERIC phoned and faxed discharge orders to Chintan from [facility], , (fax). Chintan arranged for [facility] transport at 1630 and RN called report. Packet of clinicals sent with pt. Spoke with dtr Marissa who stated appreciation and no further needs. Notified [facility] that pt went to another facility. No further SW needs. Addendum: 09/04/19 at 1706 by INES REYES Pamela GEE called requesting update as pt was on HH with them at [facility] prior to this admission. ERIC notified them of transfer to SNU, .
[2019-10-25] MEDS ORDERED: LOSA100T14 PO (13:21)
== END 2019-09-04 16:45 | DRG 682 ==
LOC: ER 20:05 → 6 SOUTH 23:29 → 5 NORTH 08-26 10:18
PROVIDERS: ADMIT Internal Medicine; ATTEND Internal Medicine
PROC: 0HBRXZZ Excision of Toe Nail, External Approach (ICD-10-PCS; principal; 2019-08-27)
PROC: 0HBRXZZ Excision of Toe Nail, External Approach (ICD-10-PCS; 2019-08-27)
PROC: 0HBRXZZ Excision of Toe Nail, External Approach (ICD-10-PCS; 2019-08-27)
PROC: 0HBRXZZ Excision of Toe Nail, External Approach (ICD-10-PCS; 2019-08-27)
PROC: 0HBRXZZ Excision of Toe Nail, External Approach (ICD-10-PCS; 2019-08-27)
PROC: 0HBRXZZ Excision of Toe Nail, External Approach (ICD-10-PCS; 2019-08-27)
PROC: 0HBRXZZ Excision of Toe Nail, External Approach (ICD-10-PCS; 2019-08-27)
PROC: 0HBRXZZ Excision of Toe Nail, External Approach (ICD-10-PCS; 2019-08-27)
PROC: 0HBRXZZ Excision of Toe Nail, External Approach (ICD-10-PCS; 2019-08-27)
PROC: 0HBRXZZ Excision of Toe Nail, External Approach (ICD-10-PCS; 2019-08-27)
DX: N17.0 Acute kidney failure with tubular necrosis (principal); E43 Unspecified severe protein-calorie malnutrition; L03.115 Cellulitis of right lower limb; I13.0 Hypertensive heart and chronic kidney disease with heart failure and stage 1 through stage 4 chronic kidney disease, or unspecified chronic kidney disease; I42.0 Dilated cardiomyopathy; I50.20 Unspecified systolic (congestive) heart failure; L03.116 Cellulitis of left lower limb; B35.1 Tinea unguium; B96.5 Pseudomonas (aeruginosa) (mallei) (pseudomallei) as the cause of diseases classified elsewhere; D64.9 Anemia, unspecified; E11.22 Type 2 diabetes mellitus with diabetic chronic kidney disease; E11.51 Type 2 diabetes mellitus with diabetic peripheral angiopathy without gangrene; E66.01 Morbid (severe) obesity due to excess calories; F43.10 Post-traumatic stress disorder, unspecified; I25.10 Atherosclerotic heart disease of native coronary artery without angina pectoris; I48.0 Paroxysmal atrial fibrillation; I87.2 Venous insufficiency (chronic) (peripheral); I89.0 Lymphedema, not elsewhere classified; J44.9 Chronic obstructive pulmonary disease, unspecified; L60.0 Ingrowing nail; L60.1 Onycholysis; N18.3 Chronic kidney disease, stage 3 (moderate); R32 Unspecified urinary incontinence; Z20.828 Contact with and (suspected) exposure to other viral communicable diseases; Z66 Do not resuscitate; R33.9 Retention of urine, unspecified; B96.4 Proteus (mirabilis) (morganii) as the cause of diseases classified elsewhere; B95.62 Methicillin resistant Staphylococcus aureus infection as the cause of diseases classified elsewhere; B96.20 Unspecified Escherichia coli [E. coli] as the cause of diseases classified elsewhere; Z82.49 Family history of ischemic heart disease and other diseases of the circulatory system; Z87.891 Personal history of nicotine dependence; Z88.1 Allergy status to other antibiotic agents; Z91.19 Patient's noncompliance with other medical treatment and regimen; Z68.37 Body mass index [BMI] 37.0-37.9, adult; Z88.8 Allergy status to other drugs, medicaments and biological substances
CPT/HCPCS: 36415; 70450; 71045; 76770; 80048; 80053; 80061; 81001; 82550; 82962; 83605; 83735; 83880; 84100; 84145; 84484; 85025; 85610; 87040; 87070; 87077; 87086; 87186; 93005; 93306; 93970; 96365; 96368; 96375; J0692; J0696; J0878; J1815; J1956; J3370; J7040; 97110-GO; 97110-GP; 97116-GP; 97530-GO; 97530-GP; 97535-GO; 99285-25; G0378; U0003-CS